=== PATIENT | female | born 2000 | race Caucasian/White ===

== ENCOUNTER 2019-05-20 09:16 | Emergency (ER) | payer MEDICAID, SELFPAY ==
--- NOTE | ~2019-05-20 | US_ITS ---
EXAMINATION: US OB <=14 wk fetus w TV DATE: 05/20/2019 10:49 INDICATION: Nausea, vomiting and diarrhea. Evaluate well-being. TECHNIQUE: Real-time transabdominal and transvaginal obstetric ultrasound. FINDINGS: No prior studies for comparison. The uterus measures 8.1 x 4.6 x 5.3 cm. There is an intrauterine gestational sac, with pole stefanie ntified. The crown rump length measures 0.39 cm, which correlates with a estimated gestational age o f 6 weeks 1 day. heart tones are identified measuring 97 BPM. There is a 2 cm corpus luteal c yst of the left ovary. Small amount of free fluid in the pelvis. IMPRESSION: 1. SL IUP with an EGA of 6 weeks, 1 days (EDC by current ultrasound of 01/12/2020). Reviewed, dictated and finalized at location B. [facility] IMPRESSION: 1. SL IUP with an EGA of 6 weeks, 1 days (EDC by current ultrasound of 01/12/20 20).
[2019-05-20 09:34] VITALS: BP 130/78; PULSE 73; RESP 20; TEMP 36.8; O2SAT 100
[2019-05-20] MEDS: ONDANSETRON INJ 4 MG/2 ML VIAL IV PUSH (09:41)
[2019-05-20] MEDS: SODIUM CHLORIDE 0.9% IV 1,000 ML 999 ML IV CONT (09:41)
--- NOTE | 2019-05-20 09:55 | ED.NAVMDI ---
HPI - Nausea/Vomiting/Diarrhea General Chief complaint: Nausea/Vomiting/Diarrhea Stated complaint: Sent from , N/V Time Seen by Provider: 05/20/19 09:26 Source: patient and RN notes reviewed Mode of arrival: ambulatory Limitations: no limitations History of Present Illness HPI Narrative: Pt is a 19 y/o female who presents to the ED with c/o nausea and vomiting starting 3 days ago. She notes that she hasn't felt well for the past several days. Pt reports having lower ABD cramping accompanying her nausea and vomiting, but denies any ABD pain currently. She also currently denies any diarrhea or vaginal bleeding. Pt states that her LMP was several weeks ago. MD elicited complaint: nausea and vomiting Onset (ago): day(s) (3) Associated abdominal pain: Yes Location of pain: other (lower ABD) Pain consistency: now resolved Quality: cramping Associated symptoms: denies other symptoms Related Data Allergies Allergy/AdvReac Type Severity Reaction Status Date / Time amoxicillin Allergy Hives Verified 05/20/19 09:31 Review of Systems Review of Systems: Narrative: CONSTITUTIONAL: Denies fever, chills, or sweats. GASTROINTESTINAL: Reports nausea, vomiting, and lower abdominal cramping (resolved). Denies diarrhea. GENITOURINARY: Denies dysuria, hematuria, or vaginal bleeding. SKIN: Denies rash or itching. All systems reviewed & are unremarkable except as noted in HPI and below PMFSH Past Medical History Medical History Healthy female Surgical History Surgical History No significant past surgical history Social History Social History Smoking status: Unknown if ever smoked Exam Narrative: Exam Narrative: GENERAL: Well-appearing, well-nourished, and in no acute distress. HEAD: Normocephalic, atraumatic. EYES: PERRLA and EOMI. ENT: Nares clear, no rhinorrhea or epistaxis. Mucous membranes moist. NECK: Supple. CHEST: Clear to auscultation. No respiratory distress. HEART: Regular rate and rhythm. No murmur heard. Normal peripheral pulses. ABDOMEN: Soft, nontender, nondistended, normal active bowel sounds. EXTREMITIES: Normal range of motion. No edema. SKIN: Warm, dry, no rash. NEURO: No focal deficits. Alert and oriented. Course Course Emergency Course: Patient presented for evaluation of nausea and vomiting. Patient denies any pelvic pain, vaginal bleeding, loss of fluids. Patient had a positive test, we did inform her that she was . Patient has an IUP on ultrasound. Pelvic exam not done as she has no pelvic pain, vaginal bleeding or discharge. Patient with stable laboratory findings. She does have a urinary tract infection. We will treat her with antibiotics. She was given [employer] follow-up. She was discharged home in stable condition. Vital Signs Vital signs: Vital Signs Temperature 36.8 C 05/20/19 09:34 Pulse Rate 73 05/20/19 09:34 Respiratory Rate 20 05/20/19 09:34 Blood Pressure 130/78 05/20/19 09:34 Pulse Oximetry 100 05/20/19 09:34 Temperature 36.8 C 05/20/19 09:34 Pulse Rate 73 05/20/19 09:34 Respiratory Rate 20 05/20/19 09:34 Blood Pressure 130/78 05/20/19 09:34 Pulse Oximetry 100 05/20/19 09:34 MDM - Nausea/Vomiting/Diarrhea Lab Data Result diagrams: 05/20/19 10:01 05/20/19 10:01 Labs: Lab Results 05/20/19 05/20/19 05/20/19 Range/Units 10:01 10:01 10:01 WBC 7.3 (4.5-10.0) K/mm3 RBC 4.52 (4.2-5.4) M/mm3 Hgb 14.1 (12.0-15.0) g/dL Hct 40.6 (37.0-47.0) % MCV 89.8 (80-100) fl MCH 31.2 (26-34) pg MCHC 34.7 (32-36) g/dl RDW 11.3 L (11.5-14.5) % Plt Count 296 (150-375) k/mm3 MPV 9.3 (7.4-10.4) fl Immature Gran % (Auto) 0.4 (0-0.5) % Neut % (Auto) 67.1 (45.5-73.1) % Lymph % (Auto) 23.0 (18.3-44.2) % Crisp % (Auto)
[2019-05-20 10:09] LABS: Basophils Percent Auto 0.3 % (0.2-1.2); Eosinophils Absolute Auto 0.1 K/mm3 (0-0.3); Eosinophils Percent Auto 0.8 % (0-4.4); Hematocrit 40.6 % (37.0-47.0); Hemoglobin 14.1 g/dL (12.0-15.0); Immature Granulocyte Absolute 0.03 K/mm3 (0.00-0.031); Immature Granulocyte Percent A 0.4 % (0-0.5); Lymphocytes Absolute Auto 1.67 K/mm3 (0.9-3.2); Mean Corpuscular HGB Conc 34.7 g/dl (32-36); Mean Corpuscular Hemoglobin 31.2 pg (26-34); Mean Corpuscular Volume 89.8 fl (80-100); Mean Platelet Volume 9.3 fl (7.4-10.4); Monocytes Absolute Auto 0.6 K/mm3 (0.1-0.6); Monocytes Percent Auto 8.4 % (2.6-8.5); Neutrophils Absolute Auto 4.9 K/mm3 (1.3-6.7); Neutrophils Percent Auto 67.1 % (45.5-73.1); Platelet Count Result 296 k/mm3 (150-375); Red Blood Count 4.52 M/mm3 (4.2-5.4); Red Cell Distribution Width 11.3 % (11.5-14.5); White Blood Count 7.3 K/mm3 (4.5-10.0)
[2019-05-20 10:23] LABS: Add Urine Microscopic? YES; Appearance Urine Cloudy (Clear); Bacteria Urine 3+ /hpf; Bilirubin Urine Negative (Negative); Blood Urine Negative (Negative); Color Urine Yellow (Yellow); Glucose Urine UA Negative (Negative); Ketones Urine Trace mg/dL (Negative); Leukocyte Esterase Ur 2+ LEU/UL (Negative); Mucus Urine Rare /lpf; Nitrate Urine Negative (Negative); Protein Urine Negative (Negative); Specific Grav Ur 1.024 (1.001-1.035); Squamous Epithelial Cell Urine Many /hpf (Few); Urobilinogen Urine Negative mg/dL (<2.0); WBC Urine 16-20 /hpf
[2019-05-20 10:50] LABS: Alanine Aminotransferase 16 U/L (4-35); Albumin Level 4.5 g/dL (3.5-5.1); Alkaline Phosphatase 44 U/L (38-126); Aspartate Amino Transferase 25 U/L (14-36); Bilirubin,Total 0.6 mg/dL (0.2-1.3); Blood Urea Nitrogen 7 mg/dL (7-17); Calcium 9.4 mg/dL (8.4-10.2); Carbon Dioxide 23 mmol/L (22-30); Chloride 101 mmol/L (98-107); Estimated CRCL calculation 119 ml/min; Estimated Glomerular Filt Rate > 60; Glucose 79 mg/dL (65-105); Lipase 22 U/L (23-300); Potassium 3.8 mmol/L (3.4-5.0); Sodium 135 mmol/L (137-145)
[2019-05-20] MEDS: CEPHALEXIN 500 MG CAPSULE PO (11:35)
[2019-05-20 11:45] VITALS: BP 115/74; PULSE 86; RESP 18; O2SAT 100
== END 2019-05-20 11:47 | disposition home or self-care (01) ==
PROVIDERS: Emergency Provider Emergency Medicine
DX: O23.11 Infections of bladder in pregnancy, first trimester (principal); O21.9 Vomiting of pregnancy, unspecified; O99.281 Endocrine, nutritional and metabolic diseases complicating pregnancy, first trimester; E86.0 Dehydration; Z3A.01 Less than 8 weeks gestation of pregnancy
CPT/HCPCS: 36415; 76801; 76817; 80053; 81001; 81025; 83690; 84702; 85025; 87086; 87088; 87804; 96361; 96374; 99284; A9270; J2405; J7030

== ENCOUNTER 2019-06-17 12:34 | Outpatient (CLI) | payer MEDICAID, SELFPAY ==
[2019-06-17 13:12] LABS: Basophils Percent Auto 0.2 % (0.2-1.2); Eosinophils Absolute Auto 0.1 K/mm3 (0-0.3); Eosinophils Percent Auto 0.8 % (0-4.4); Hematocrit 39.3 % (37.0-47.0); Hemoglobin 13.6 g/dL (12.0-15.0); Immature Granulocyte Absolute 0.03 K/mm3 (0.00-0.031); Immature Granulocyte Percent A 0.2 % (0-0.5); Lymphocytes Absolute Auto 1.91 K/mm3 (0.9-3.2); Lymphocytes Percent Auto 14.9 % (18.3-44.2); Mean Corpuscular HGB Conc 34.6 g/dl (32-36); Mean Corpuscular Hemoglobin 30.9 pg (26-34); Mean Corpuscular Volume 89.3 fl (80-100); Mean Platelet Volume 9.3 fl (7.4-10.4); Monocytes Absolute Auto 0.7 K/mm3 (0.1-0.6); Monocytes Percent Auto 5.5 % (2.6-8.5); Neutrophils Absolute Auto 10.1 K/mm3 (1.3-6.7); Neutrophils Percent Auto 78.4 % (45.5-73.1); Platelet Count Result 329 k/mm3 (150-375); Red Cell Distribution Width 11.4 % (11.5-14.5); White Blood Count 12.9 K/mm3 (4.5-10.0)
[2019-06-17 13:21] LABS: Add Urine Microscopic? YES; Appearance Urine Clear (Clear); Bacteria Urine Trace /hpf; Bilirubin Urine Negative (Negative); Blood Urine Negative (Negative); Color Urine Yellow (Yellow); Glucose Urine UA Negative (Negative); Ketones Urine Negative (Negative); Leukocyte Esterase Ur 1+ LEU/UL (NEGATIVE); Mucus Urine Rare /lpf; Nitrate Urine Negative (Negative); Protein Urine 1+ mg/dL (Negative); RBC Urine 0-2 /hpf (0-2); Squamous Epithelial Cell Urine Few /hpf (Few); Urobilinogen Urine Negative mg/dL (<2.0)
[2019-06-17 13:24] LABS: Hemoglobin A1C 4.8 % (<5.7)
[2019-06-17 13:53] LABS: Vitamin D 25 Hydroxy 24.7 ng/mL
[2019-06-17 13:57] LABS: Hepatitis B Surface Antigen Negative (Negative); Rubella IgG Antibody 75.4 IU/ML
[2019-06-17 14:12] LABS: HIV 1/2 Ab P24 Ag Result Negative (Negative); Hepatitis C Virus Antibody Negative (Negative)
[2019-06-18 07:54] LABS: Rapid Plasma Reagin Non-Reactive (NonReactive)
[2019-06-19 10:29] LABS: Varicella IgG Antibody <135.00 Index (>=165.00)
[2019-06-19 22:50] LABS: Hematocrit 39.2 % (35.0-45.0); Hemoglobin 12.8 g/dL (11.7-15.5); MCH 30.6 pg (27.0-33.0); MCV 93.3 FL (80.0-100.0); RDW 12.6 % (11.0-15.0)
== END 2019-06-17 12:35 | disposition home or self-care (01) ==
PROVIDERS: Visit Provider Obstetrics & Gynecology
DX: Z34.90 Encounter for supervision of normal pregnancy, unspecified, unspecified trimester (principal)
CPT/HCPCS: 36415; 81001; 81220; 81243; 82306; 83021; 83036; 84443; 85025; 86592; 86703; 86762; 86787; 86803; 86900; 86901; 87086; 87088; 87340; 87491; 87591; G0432

== ENCOUNTER 2019-12-31 03:15 | Inpatient (IN) | payer OTHER, SELFPAY ==
[2019-12-31] VITALS (103 sets, daily range): BP systolic 109–146; BP diastolic 63–117; PULSE 70–134; RESP 16–18; TEMP 36.3–36.6; O2SAT 97–100
--- NOTE | 2019-12-31 04:32 | LDADM ---
This patient, Kali Alfaro, was admitted to Labor/Delivery/Recovery 103 on 12/31/19 at 03:15. Plans for labor, pain management and were discussed with patient. Patient/family oriented to hospital policies and general routines including ID bracelet, bed and alarms, visiting hours, pain management, procedures, bathroom and other care routines, personal items, smoking policy, room service/diet and guest tray routines, security routines, and visiting hours. Patient/Family are encouraged to report perceived risks to care and to ask questions if they do not understand what they are told or what they should do. See OBIX for further documentation.
[2019-12-31 04:43] LABS: Basophils Percent Auto 0.2 % (0.2-1.2); Eosinophils Absolute Auto 0.1 K/mm3 (0-0.3); Eosinophils Percent Auto 0.9 % (0-4.4); Hematocrit 34.9 % (37.0-47.0); Hemoglobin 12.2 g/dL (12.0-15.0); Immature Granulocyte Absolute 0.05 K/mm3 (0.00-0.031); Immature Granulocyte Percent A 0.5 % (0-0.5); Lymphocytes Absolute Auto 1.71 K/mm3 (0.9-3.2); Lymphocytes Percent Auto 15.4 % (18.3-44.2); Mean Corpuscular Hemoglobin 30.7 pg (26-34); Mean Corpuscular Volume 87.7 fl (80-100); Mean Platelet Volume 9.6 fl (7.4-10.4); Monocytes Absolute Auto 0.6 K/mm3 (0.1-0.6); Monocytes Percent Auto 5.5 % (2.6-8.5); Neutrophils Absolute Auto 8.6 K/mm3 (1.3-6.7); Neutrophils Percent Auto 77.5 % (45.5-73.1); Platelet Count Result 247 k/mm3 (150-375); Red Blood Count 3.98 M/mm3 (4.2-5.4); Red Cell Distribution Width 12.6 % (11.5-14.5); White Blood Count 11.1 K/mm3 (4.5-10.0)
[2019-12-31 05:37] LABS: HIV 1/2 Ab P24 Ag Result Negative (Negative)
[2019-12-31] MEDS: LACTATED RINGERS 1,000 ML 125 ML IV CONT ×2 (05:47→07:12)
[2019-12-31] MEDS: CLINDAMYCIN 900 MG/NS 50 ML 900 MG/50 ML PIGGYBACK 50 MG IVPB (05:47)
[2019-12-31] MEDS: OXYTOCIN 30 UNITS/NS 500 ML 30 UNITS/500 ML BAG 6 UNITS IV CONT (05:47)
--- NOTE | 2019-12-31 07:18 | WPDANESEPP ---
Anes - Eval Pre Procedure Procedure: labor epidural Date/Time: 12/31/19 07:18 Surgeon: lacho Preop Diagnosis: pain during labor Pre Op Diagnosis: bleeding, Leaking Patient Data Age: 19 Gender: F Height: 5 ft 6 in Weight: Last Vital Signs Temp 36.6 C 12/31/19 05:14 Pulse 84 12/31/19 07:16 BP 127/74 12/31/19 07:16 Pulse Ox 100 12/31/19 07:14 Allergies Allergy/AdvReac Type Severity Reaction Status Date / Time amoxicillin Allergy Mild Hives Verified 12/31/19 06:06 Home Medications Medication Instructions Recorded Confirmed Type vits 75-iron 28 mg-folic pkg PO 06/17/19 History acid 800 mcg-omega-3 oral combo pack Laboratory Tests 12/31/19 12/31/19 12/31/19 04:36 04:36 04:36 WBC 11.1 K/mm3 H K/mm3 (4.5-10.0) RBC 3.98 M/mm3 L M/mm3 (4.2-5.4) Hgb 12.2 g/dL g/dL (12.0-15.0) Hct 34.9 % L % (37.0-47.0) MCV 87.7 fl fl (80-100) MCH 30.7 pg pg (26-34) MCHC 35.0 g/dl g/dl (32-36) RDW 12.6 % % (11.5-14.5) Plt Count 247 k/mm3 k/mm3 (150-375) MPV 9.6 fl fl (7.4-10.4) Immature Gran % (Auto) 0.5 % % (0-0.5) Neut % (Auto) 77.5 % H % (45.5-73.1) Lymph % (Auto) 15.4 % L % (18.3-44.2) [place] % (Auto) 5.5 % % (2.6-8.5) Eos % (Auto) 0.9 % % (0-4.4) Baso % (Auto) 0.2 % % (0.2-1.2) Lymph # (Auto) 1.71 K/mm3 K/mm3 (0.9-3.2) [place] # (Auto) 0.6 K/mm3 K/mm3 (0.1-0.6) Eos # (Auto) 0.1 K/mm3 K/mm3 (0-0.3) Baso # (Auto) 0.0 K/mm3 K/mm3 (0.0-0.1) Abs Immat Gran (auto) 0.05 K/mm3 H K/mm3 (0.00-0.031) Absolute Neuts (auto) 8.6 K/mm3 H K/mm3 (1.3-6.7) Absolute Nucleated RBC 0.0 K/mm3 K/mm3 (0.0-0.012) Nucleated RBC % 0.0 % % (0.0-0.2) RPR Pending HIV 1&2 Ab/P24 Ag 4thGn Negative (Negative) Blood Type Antibody Screen 12/31/19 04:36 WBC RBC Hgb Hct MCV MCH MCHC RDW Plt Count MPV Immature Gran % (Auto) Neut % (Auto) Lymph % (Auto) [place] % (Auto) Eos % (Auto) Baso % (Auto) Lymph # (Auto) [place] # (Auto) Eos # (Auto) Baso # (Auto) Abs Immat Gran (auto) Absolute Neuts (auto) Absolute Nucleated RBC Nucleated RBC % RPR HIV 1&2 Ab/P24 Ag 4thGn Blood Type O Positive Antibody Screen Negative : gestational age (GAUDENCIO 01/11) Patient hx anesthesia problems: none Family hx anesthesia problems: none [facility] Past Medical History Medical History (Updated 12/31/19 @ 07:19 by Tio Martell CRNA) Encounter for supervision of low-risk first in second trimester Encounter for supervision of normal first Healthy female Surgical History Surgical History No significant past surgical history Social History Social History Smoking status: Former smoker Tobacco type: cigarettes Second hand tobacco smoke exposure: No Smoking end date: 01/10/19 Alcohol intake: never Substance use: current Substance use type: marijuana Last use: 1 week ago Gender identity (if verbalized by the patient): Female Sexual Orientation (if Verbalized by the Patient): Straight or Heterosexual Spiritual care concerns: No Exam Day of Procedure 12/31/19 07:18 Patient weight: normal Heart: regular rate and rhythm Lungs: clear to auscultation and normal air movement Neurological: alert and oriented
--- NOTE | 2019-12-31 07:32 | WPDOBADMIT ---
Obstetrics - Admit Note Admission Note: record reviewed. No pertinent additions to the history and/or any subsequent changes in the physical findings that are not consistent with the expected course of the were found.SROM, GBS +, SVE /-1 forebag ruptured clear odorless fluid Additions to the history and/or subsequent changes in the physical findings follow. None.
[2019-12-31 08:45] LABS: Amphetamine Screen Urine Negative (Negative); Barbiturate Screen Urine Negative (Negative); Benzodiazepines Screen Urine Negative (Negative); Cannabinoid Screen Urine Negative (Negative); Cocaine Screen Urine Negative (Negative); Methadone Screen Urine Negative (Negative); Opiate Screen Urine Negative (Negative); Phencyclidine Screen Urine Negative (Negative)
--- NOTE | 2019-12-31 11:12 | P.PCNOB_ITS ---
OB - Delivery Note Procedure Delivery date: 12/31/19 events: No Care Intrapartal events: None Induction method: none Delivery augmentation: rupture of membranes and pitocin Delivery monitor: external FHT and internal uterine Route of delivery: Laceration description: Perineal - 2nd Degree Delivery repair: vicryl Specimen: No Estimated blood loss (mL): 335 Disposition: other () [place] Baby Date of : 12/31/19 Time of : 10:59 Weeks of gestation at delivery: 38 gender: Female Weight (pounds): 7 Weight (ounces): 5 presentation: vertex position: Left Occiput Anterior Placenta delivery description: Spontaneous cord vessel description: 3 Vessels and Clamped/Cut score one minute: 8 score five minutes: 9
[2019-12-31] MEDS: OXYTOCIN 30 UNITS/NS 500 ML 30 UNITS/500 ML BAG 125 UNITS IV CONT (11:18)
[2019-12-31] MEDS: BENZOCAINE 20% AER SPR (*SP) 56 GM CAN 1 SPRAY TOPICAL (12:28)
[2019-12-31] MEDS: IBUPROFEN 600 MG TABLET PO ×2 (12:28→19:35)
[2019-12-31] MEDS: WITCH HAZEL 40 PADS 1 PAD TOPICAL (12:28)
[2019-12-31 13:21] LABS: Rapid Plasma Reagin Non-Reactive (NonReactive)
--- NOTE | 2019-12-31 13:31 | PC.NURSE ---
Patient transferred to post room #281 per wheelchair. Support person present. Oriented to unit, room, information board, rooming in, admission packet and security measures. Patient verbalizes understanding.
[2019-12-31] MEDS: DOCUSATE SODIUM 100 MG CAPSULE PO (16:39)
[2019-12-31] MEDS: LANOLIN (LANSINOH) 7.5 GM CREAM 1 APPLIC TOPICAL (16:40)
--- NOTE | 2019-12-31 18:13 | PC.NURSE ---
Nipple shield provided to mother due to soft and inverted nipple. Instructions given on application and cleaning of shield. Discussed nipple shield precautions and possible complications. Patient able to return demonstration on proper application of shield. Discussed the need to initiate pumping if infant continues to nurse with the shield. Patient verbalizes understanding.
[2020-01-01] MEDS: IBUPROFEN 600 MG TABLET PO ×2 (05:06→20:10)
[2020-01-01 06:02] LABS: Hematocrit 32.2 % (37.0-47.0); Hemoglobin 11.1 g/dL (12.0-15.0)
--- NOTE | 2020-01-01 07:20 | WPDANLDPN2 ---
Anes-Prog Note L&D Date/Time: 01/01/20 07:20 Comfortable throughout: labor and delivery Neuraxial method: epidural Epidural/Spinal procedure site: clean & non-tender Neuro status: Neuro function grossly intact. Cardiovascular status: normal Respiratory status: normal Airway patency: baseline Mental status: baseline Post-Op hydration status: normal Vital Signs: Last Vital Signs Temp 36.6 C 12/31/19 18:50 Pulse 89 12/31/19 18:50 Resp 16 12/31/19 18:50 BP 125/87 12/31/19 18:50 Pulse Ox 100 12/31/19 10:57 Pain score (VAS): 0 I/O: Intake & Output 12/31/19 12/31/19 01/01/20 15:59 23:59 07:59 Intake Total 500 Balance 500 Post-procedural complaints: none Patient feedback: Patient satisfied with anesthetic care.
--- NOTE | 2020-01-01 07:30 | PC.NURSE ---
Consulted with patient, mother reports she had issues with latching and was using the nipple shield. The last feeding she was able to latch without shield. Discussed use that can be a good tool if needed. Instructions given on application and cleaning of shield. Discussed nipple shield precautions and possible complications. Discussed the need to initiate pumping if infant continues to nurse with the shield. Patient verbalizes understanding. Reviewed infant feeding cues, frequencies, duration of feedings, feeding elimination flow sheet, and signs of adequate intake. Demonstrated stimulation techniques to wake infant for feeding. Assisted with to breast. Reviewed positioning/alignment in cross cradle, holding breast in U hold and guided asymmetrical latch on. Infant was able to latch correctly with first attempt. Infant nursed eagerly, with steady draws and frequent swallowing noted. Reviewed signs of a correct latch, effective nursing and suck swallow ratio. was able to maintain latch without discomfort to mother. Nipple care reviewed. Suggested mother stimulate while feeding to keep infant awake and nursing effectively for increased intake and to assist with maintaining deep latch. Instructed mother to call out for RN assistance if she is unable to latch infant for feeding or she has discomfort with nursing. Instructed feeding should be initiated three hours from start of last feeding or if feeding cues are noted before. Mother voiced understanding of information shared.
[2020-01-01 07:40] VITALS: BP 120/77; PULSE 74; RESP 18; TEMP 36.4; O2SAT 99
--- NOTE | 2020-01-01 08:02 | PM.OBPNVD ---
OB - PN: Subj Subjective Date/time seen: 01/01/20 08:02 Patient comments: no complaints baby status: doing well OB - PN: Obj Data Labs CBC & Chem 7: 01/01/20 05:03 Labs: Laboratory Results - last 24 hr 12/31/19 12/31/19 01/01/20 04:36 08:19 05:03 Hgb 11.1 L Hct 32.2 L Urine Opiates Screen Negative Urine Methadone Screen Negative Ur Barbiturates Screen Negative Ur Phencyclidine Scrn Negative Ur Amphetamine Screen Negative U Benzodiazepines Scrn Negative Urine Cocaine Screen Negative U Cannabinoids Screen Negative RPR Non-reactive OB - PN A/P Plan day: 1 Plan: routine care Time Spent With Patient Time: Total time spent is greater than 50% in coordination of care (as documented) at patient's floor/unit and/or counseling patient: Time with patient: less than 15 minutes Review of Systems Review of Systems: All systems reviewed & are unremarkable except as noted in HPI and below Exam Narrative: Exam Narrative: Fundus firm and vaginal flow controlled. No lower ext redness, warmth, or edema. Negative homans. Const: General: comfortable Chest: Breast/axilla inspection: normal inspection of the breasts Resp: Effort & Inspection: normal respiratory effort Cardio: Rate: regular rate GI: GI Palp: Yes Soft to palpation Psych: Appearance: grossly normal Affect: normal affect Attitude: cooperative Thought content: Yes Normal thought content present Judgement: Good judgement present (Psych)
[2020-01-01] MEDS: MULTIVIT/MIN/PREN/FOL AC/IRON TABLET 1 TAB PO (08:38)
[2020-01-01] MEDS: TETANUS,DIPHTHERIA,AC PERTUSSIS ADULT (0.5 ML) BOOSTRIX IM (08:39)
[2020-01-01] MEDS: ACETAMINOPHEN 325 MG TABLET 650 MG PO (09:32)
[2020-01-01] MEDS: WITCH HAZEL 40 PADS 1 PAD TOPICAL (09:34)
--- NOTE | 2020-01-01 13:08 | PCCCNOTE ---
Care Coordination Consult: Met with pt. today to discuss services. Pt. lives at home with her aunt. FOB is Angie who is in the room and supportive. This is pt. and FOB first child. Pt. has supportive family. Reports she has all necessary supplies at home including a car seat, crib, clothing, diapers, and bottles. Pt. hopes to breastfeed at discharge, interested in a breast pump. Nursing was notified. Resources provided to pt. Pt. plans to utilize [facility] services at discharge. Pt. used marijuana prior to knowledge of , is aware she tested negative for all substances at . Denies any substance abuse use currently. Pt. denies any further needs.
[2020-01-01 21:00] VITALS: BP 122/85; PULSE 87; RESP 16; TEMP 36.8; O2SAT 99
[2020-01-02 07:40] VITALS: BP 137/82; PULSE 92; RESP 18; TEMP 36.6; O2SAT 99
--- NOTE | 2020-01-02 07:47 | PM.OBPNVD ---
OB - PN: Subj Subjective Date/time seen: 01/02/20 07:47 Patient comments: no complaints baby status: doing well OB - PN: Obj Data Labs CBC & Chem 7: 01/01/20 05:03 OB - PN A/P Plan day: 2 Plan: routine care and discharge home (F/U in 4 weeks) Time Spent With Patient Time: Total time spent is greater than 50% in coordination of care (as documented) at patient's floor/unit and/or counseling patient: Will check epds today prior to discharge. Discussed s/s of post depression discussed in detail. Time with patient: less than 15 minutes Review of Systems Review of Systems: All systems reviewed & are unremarkable except as noted in HPI and below Exam Narrative: Exam Narrative: Fundus firm and vaginal flow controlled. No lower ext redness, warmth, or edema. Negative homans. Const: General: comfortable Chest: Breast/axilla inspection: normal inspection of the breasts Resp: Effort & Inspection: normal respiratory effort Cardio: Rate: regular rate GI: GI Palp: Yes Soft to palpation Psych: Appearance: grossly normal Affect: normal affect Attitude: cooperative Thought content: Yes Normal thought content present Judgement: Good judgement present (Psych)
[2020-01-02] MEDS: IBUPROFEN 600 MG TABLET PO (08:17)
[2020-01-02] MEDS: MULTIVIT/MIN/PREN/FOL AC/IRON TABLET 1 TAB PO (08:17)
[2020-01-02] MEDS: LANOLIN (LANSINOH) 7.5 GM CREAM 1 APPLIC TOPICAL (08:18)
--- NOTE | 2020-01-02 11:50 | PC.NURSE ---
Mother reports she is having tenderness with feeding. Both nipples are slightly bruised. Reviewed nipple care. Assisted with to breast, reviewing football positioning/alignment, holding breast in C hold and guided latch on. Infant was able to latch deeply, infant tends to pull back to shallow latch. Demonstrated how to adjust latch more deeply while feeding. Once done mother reports she can feel infant has a deeper latch with no discomfort. Advised to stimulate to keep awake and nursing effectively for increased intake and assist with maintaining deep latch. Mother is able to independently latch with appropriate positioning/alignment. She is feeding as required and waking infant to feed if needed. Infant has had at least 8 effective feedings in the past 24 hours, and is currently meeting outcomes for weight, output, jaundice and feeding frequencies. Mother states she feels confident to continue effective at home. Reviewed transition to breast milk, signs of adequate intake, and engorgement/relief. Instructed to call ICP if intake/output less than required. Reviewed regular medications mother is taking. Information provided per Virginie. Reviewed community resources on the [facility] website and in the Mom/Baby guide. Information on outpatient services provided. Mother has no further questions at this time.
[2020-01-03 10:54] VITALS: BP 120/73; PULSE 91; RESP 20; TEMP 37.1; O2SAT 100
--- NOTE | 2020-01-07 07:50 | PM.OBDSVD ---
DS: Admitting Diagnosis Admitting Diagnosis Admitting Diagnosis: bleeding, Leaking OB - DS: Summary OB Procedures : None OB Procedures Intrapartum: Spontaneous Vag Delivery OB Procedures: : None Time Spent with Patient Time attestation: Total time spent providing and/or coordinating discharge services: Discharge Plan Discharge Attending physician on discharge: Anali Jesus Consulting providers: Jess Pearson ; Anali Jesus ; Melia Buck Discharging Clinician: Melia Buck Patient Disposition: Home, Self-Care Activity: pelvic rest Diet: as tolerated Discharge Instructions: Education: Mom and Baby Guide Given to: Mother Follow-Up: Call your delivering provider's office for an appointment to be seen. Mom and baby should come to the [facility] for the follow-up appointment. Appointment Date/Time: January 03, 2020 at 10:00 am What to expect at your follow-up visit: Physical Assessment Call [phone] if you are unable to keep your appointment time. BREAST CARE: * Wear a snug supportive bra. * For engorgement discomfort: Breast Feeding: * Apply warm moist washcloths * Express milk as needed to relieve engorgement * Wear loose clothing * For sore nipples: * Identify correct latch-on * Apply warm moist washcloths before and after nursing * Air dry nipples after nursing * May apply Lansinoh cream to nipples PERINEAL CARE: * Until bleeding stops, use your marlena bottle after urinating * Change your pad frequently throughout the day * You may take sitz baths several times a day (fill your bathtub with warm water and soak for 20 minutes.) Do NOT bathe in the water * No tub baths until seen by your physician - You may shower ACTIVITY: * Rest as much as possible. * Do not exercise or lift anything heavier than your baby (such as laundry or other children.) * Avoid stairs or driving as much as possible. * Do not put anything into the vagina. No douching, tampons, or sexual activity until seen by physician. NOTIFY PHYSICIAN IF YOU HAVE ANY QUESTIONS OR IF ANY OF THE FOLLOWING SYMPTOMS OCCUR: * If your stitches become red, swollen, or more painful than what you have experienced in the hospital. * If your vaginal bleeding becomes foul smelling. * If your vaginal bleeding becomes more heavy than a period or if your bleeding changes from pink to bright red. However, you may pass an occasional walnut-sized clot once or twice for the first week . * If you experience a sharp, shooting pain in you calves. * If you discover a hard, reddened area on your breast or if you experience flu-like symptoms. DIET: * Eat regular, well-balanced meals. * Drink plenty of fluids daily. If , drink to thirst. Patient Instructions: Antibiotic Form Stand Alone Forms: General Discharge Information Follow-up/Referrals: Anali Jesus CNM [Certified Nurse Russian Teacher] - Discharge Medications: Continued One A Day Women's DHA 28 mg iron- 800 mcg combo pack PO RF: 0 Date of admission: 12/31/19 03:15 Primary Care Provider: PHYSICIAN,[facility] Admitting Provider: Mima Pratt Attending physician on admission: Mima Pratt Condition: Stable
== END 2020-01-02 12:22 | disposition home or self-care (01) | DRG 560 ==
LOC: ANHLDR 04:06 → ANHOB2 13:50
PROVIDERS: Advanced Practice Midwife; Admitting Provider Obstetrics & Gynecology; Visit Provider Obstetrics & Gynecology
DX: O99.824 Streptococcus B carrier state complicating childbirth (principal); Z37.0 Single live birth; Z3A.38 38 weeks gestation of pregnancy; O70.1 Second degree perineal laceration during delivery
CPT/HCPCS: 36415; 80307; 85014; 85018; 85025; 86592; 86703; 86850; 86900; 86901; 90715; A9270; G0432; J2590; J2795; J7120

== ENCOUNTER 2020-07-06 20:02 | Emergency (ER) | payer OTHER, SELFPAY ==
--- NOTE | ~2020-07-06 | CT_ITS ---
EXAMINATION: CT cervical spine wo con DATE: 07/06/2020 20:50 INDICATION: Trauma. Neck pain. TECHNIQUE: Computed tomography (CT) of the cervical spine was performed without intravenous contrast. The dose-length product was 374 mGy-cm. Automated exposure control and iterative reconstruction tech nique were employed. COMPARISON: None FINDINGS: No acute fracture, subluxation or dislocation. Reversal of cervical lordosis, likely due to muscle spasm or patient positioning. Lung apices are unremarkable. No evidence for perched facet. Ve rtebral body heights are maintained. No paraspinal soft tissue abnormality. Craniovertebral junction within normal limits. IMPRESSION: 1. No acute abnormality of the cervical spine. Reviewed, dictated and finalized at location A.
--- NOTE | ~2020-07-06 | CT_ITS ---
EXAMINATION: CT BRAIN W/O DATE: 07/06/2020 20:50 INDICATION: Trauma to the head. TECHNIQUE: Computed tomography (CT) of the head was performed without intravenous contrast. The dose- length product was 529.67 mGy-cm. Automated exposure control and iterative reconstruction technique w ere employed. COMPARISON: No prior studies for comparison. FINDINGS: Normal brain parenchymal volume for age. Normal quintero-white differentiation. No acute intrac ranial hemorrhage, infarction, mass or mass effect. No ventriculomegaly or midline shift. Midline sagittal images demonstrate a normal corpus callosum, c raniovertebral junction and sella turcica. Basilar cisterns are patent. Paranasal sinuses and mastoids are pneumatized. No depressed skull fractures. IMPRESSION: 1. No acute intracranial abnormality. Reviewed, dictated and finalized at location A.
[2020-07-06 20:10] VITALS: BP 125/80; PULSE 83; RESP 18; TEMP 37; O2SAT 99
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
[2020-07-06] MEDS: KETOROLAC 10 MG TABLET PO (21:08)
[2020-07-06 21:10] VITALS: BP 122/80; PULSE 70; RESP 18; TEMP 36.6; O2SAT 98
== END 2020-07-06 21:11 | disposition home or self-care (01) ==
PROVIDERS: Emergency Provider Emergency Medicine; PCP Physician Assistant
DX: S09.90XA Unspecified injury of head, initial encounter (principal); W22.8XXA Striking against or struck by other objects, initial encounter
CPT/HCPCS: 70450; 72125; 99282; 99284; A9270

== ENCOUNTER 2020-09-22 20:25 | Emergency (ER) | payer OTHER, SELFPAY ==
--- NOTE | ~2020-09-22 | CT_ITS ---
EXAMINATION: CT BRAIN W/O DATE: 09/22/2020 21:22 INDICATION: Headache. Vision loss. TECHNIQUE: Computed tomography (CT) of the head was performed without intravenous contrast. The dose- length product was 605.33 mGy-cm. Automated exposure control and iterative reconstruction technique w ere employed. COMPARISON: CT dated 07/06/2020 FINDINGS: Normal brain parenchymal volume for age. Normal quintero-white differentiation. No acute intrac ranial hemorrhage, infarction, mass or mass effect. No ventriculomegaly or midline shift. Midline sagittal images demonstrate a normal corpus callosum, c raniovertebral junction and sella turcica. Basilar cisterns are patent. Paranasal sinuses and mastoids are pneumatized. No depressed skull fractures. IMPRESSION: 1. No acute intracranial abnormality. Reviewed, dictated and finalized at location A.
[2020-09-22 20:53] VITALS: BP 129/90; PULSE 72; RESP 20; TEMP 36.9; O2SAT 97
[2020-09-22] MEDS: PROCHLORPERAZINE MALEATE 5 MG TABLET 10 MG PO (21:26)
[2020-09-22] MEDS: DIVALPROEX SODIUM ER 250 MG TAB.24H PO (21:26)
[2020-09-22] MEDS: KETOROLAC (*BKC) 60 MG/2 ML VIAL IM (21:26)
[2020-09-22 21:37] LABS: Basophils Absolute Auto 0.04 K/mm3 (0.00-0.10); Basophils Percent Auto 0.5 % (0.0-1.0); Eosinophils Absolute Auto 0.12 K/mm3 (0.02-0.50); Eosinophils Percent Auto 1.5 % (1.0-6.0); Hematocrit 40.2 % (35.0-49.0); Hemoglobin 14.1 g/dL (12.0-15.0); Immature Granulocyte Absolute 0.03 K/mm3 (0.00-0.00); Immature Granulocyte Percent A 0.4 % (0.0-0.0); Lymphocytes Absolute Auto 2.66 K/mm3 (1.10-4.50); Lymphocytes Percent Auto 32.8 % (18.0-42.0); Mean Corpuscular HGB Conc 35.1 g/dL (32.0-36.0); Mean Corpuscular Hemoglobin 31.5 pg (27.0-31.0); Mean Corpuscular Volume 89.7 fL (78.0-102.0); Mean Platelet Volume 8.6 fl (9.2-11.8); Monocytes Percent Auto 6.2 % (2.0-11.0); Neutrophils Absolute Auto 4.8 K/mm3 (1.7-7.2); Neutrophils Percent Auto 58.6 % (50.0-70.0); Platelet Count Result 289 K/mm3 (150-420); Red Blood Count 4.48 M/mm3 (4.20-5.40); Red Cell Distribution Width 11.7 % (11.6-14.4); White Blood Count 8.1 K/mm3 (4.8-10.8)
[2020-09-22] MEDS: ASPIRIN 81 MG CHEWABLE TABLET 324 MG PO (21:44)
[2020-09-22 21:52] LABS: Alanine Aminotransferase 22 U/L (14-59); Alkaline Phosphatase 64 U/L (46-116); Anion Gap 13 mmol/L (8-16); Aspartate Amino Transferase 19 U/L (15-37); Bilirubin,Total 0.4 mg/dL (0.00-1.00); Blood Urea Nitrogen 9 mg/dL (7-18); Carbon Dioxide 27 mmol/L (21-32); Chloride 103 mmol/L (98-108); Estimated CRCL calculation 86 ml/min; Estimated Glomerular Filt Rate > 60; Glucose 87 mg/dL (70-99); Osmolality Calculated 293 mOsm/kg (285-295); Potassium 3.6 mmol/L (3.5-5.1); Sodium 143 mmol/L (136-145); Total Protein 7.1 g/dL (6.4-8.2)
--- NOTE | 2020-09-22 22:25 | ED.HA ---
HPI - Headache General Chief Complaint: Headache Stated Complaint: R eye trouble, headache on L side,R hand numbness Source: patient Mode of arrival: ambulatory Limitations: no limitations History of Present Illness HPI Narrative: Patient comes in with headache pounding, behind left eye, and associated photo and phonophobia. She had right hand and arm numbness for 45min, that became a tingly sensation, and now continues. She had lip numbness for about 45 minutes which resolved as ah was coming in. She also had double vision that lasted for about 45 minutes and resolved, and loss of peripheral vision on the right for the same period of time that resolved. Pain was 6/10 initially. pounding, sharp, behind left eye, made worse with activity, lessons with rest. She has had previous migraine headaches, but not like this. She had an episode of emesis, just prior to presentation, but feels better now. MD elicited complaint: migraine Pertinent past history: migraines Onset (ago): hour(s) Onset description: suddenly Location: left Severity: moderate Quality & Timing: throbbing, pulsatile, sharp, similar to previous headaches and other (now with new symptoms as above) Exacerbating factors: exertion Relieving factors: rest Context: occurred at rest Associated symptoms: nausea and vomiting Related Data Home Medications Medication Instructions Recorded Confirmed No Home Medications 09/22/20 09/22/20 Allergies Allergy/AdvReac Type Severity Reaction Status Date / Time amoxicillin Allergy Mild Hives Verified 09/22/20 22:31 Review of Systems Review of Systems: ROS unobtainable: Yes unobtainable due to endotracheal tube Constitutional: Constitutional: Reports no additional constitutional complaints Eyes: Eyes: Reports no additional eye complaints ENT: Reports system reviewed and no additional complaints, except as documented Cardiovascular: Cardiovascular: Reports no additional cardiovascular complaints Respiratory: Respiratory: Reports no additional respiratory complaints Gastrointestinal: Gastrointestinal: Reports no additional gastrointestinal complaints Genitourinary: Genitourinary: Reports no additional female genitourinary complaints Musculoskeletal: Musculoskeletal: Reports no additional musculoskeletal complaints Integumentary/Breasts: Skin/Breast: Reports system reviewed and no additional complaints, except as docu Neurologic: Reports system reviewed and no additional complaints, except as documented Psychiatric: Psychiatric: Reports no additional psychiatric complaints Endocrine: Endocrine: Reports no additional endocrine complaints Hematologic/Lymphatic: Hematologic/Lymphatic: Reports no additional hematologic/lymphatic complaints Allergic/Immunologic: Allergic/Immunologic: Reports no additional allergic/immunologic complaints PMFSH Past Medical History Medical History (Updated 09/23/20 @ 00:46 by Kt Meneses MD) Migraine No significant medical problems Surgical History Surgical History No significant past surgical history Family History Family History Mother Adopted Social History Social History (Updated 09/22/20 @ 23:40 by Kt Meneses MD) Smoking status: Former smoker Tobacco type: e-cigarettes/vaping Second hand tobacco smoke exposure: No Smoking end date: 01/10/19 Additional smoking assessment comments: former smoker, now vapes Alcohol intake: never Substance use: current Substance use type: marijuana Last use: 1 week ago Living arrangements: with friend(s) Gender identity (if verbalized by the patient): Female Spiritual care concerns: No Exam Const: General: no acute distress and alert Orientation/consciousness: patient oriented x3 HENMT: Head: normal to inspection Ears: external ears normal General nose exam: Normal external nose prese
[2020-09-22 22:43] LABS: Erythrocyte Sedimentation Rate 8 mm/hr (0-15)
--- NOTE | 2020-09-22 22:55 | PC.NURSE ---
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 dr harding talking with billings at this time. pt continues with tingling to right hand, ROM WNL.
[2020-09-22 23:00] VITALS: BP 121/88; PULSE 72; RESP 20; TEMP 36.9; O2SAT 99
--- NOTE | 2020-09-22 23:01 | PC.NURSE ---
awaiting call back from [facility].
[2020-09-23 00:44] VITALS: BP 117/88; PULSE 71; RESP 20; TEMP 36.9; O2SAT 98
--- NOTE | 2020-09-23 01:04 | PC.NURSE ---
[facility] HERE, REPORT TO THOMAS AND ANOTHER MORTGAGE ACCOUNTING CLERK. PT ALERT , AWAKE. PT AMBULATED TO EMS COT. NO DIFFICULTY OR COMPLAINTS VOICED.
== END 2020-09-23 01:05 | disposition short-term general hospital (02) ==
PROVIDERS: Emergency Provider Emergency Medicine; PCP Physician Assistant
DX: G43.109 Migraine with aura, not intractable, without status migrainosus (principal)
CPT/HCPCS: 36415; 70450; 80053; 85025; 85652; 96372; 99284; 99285; A9270; J1885

== ENCOUNTER 2021-06-18 10:09 | Outpatient (CLI) | payer OTHER, SELFPAY ==
--- NOTE | ~2021-06-18 | US_ITS ---
EXAMINATION: US pelvic complete DATE: 06/18/2021 10:39 INDICATION: Pelvic and perineal pain. TECHNIQUE: Multiple transabdominal sonographic images of the pelvis were obtained. COMPARISON: None FINDINGS: The uterus measures 6.4 x 4.7 x 3.1 cm. The endometrial complex measures 6 mm in thickness. Linear e chogenic and shadowing IUD is seen within the endometrial canal. The right ovary measures 1.9 x 1.2 x 1.7 cm. The left ovary measures 4.0 x 4.1 x 3.7 cm. And contains a 3.0 x 2.8 x 2.3 cm anechoic cyst/ follicle. Vascular flow identified at both ovaries on color Doppler. There is no free fluid in the pe lvis. IMPRESSION: 1. IUD in expected position within the endometrial complex with normal thickness of 6 mm 2. 3.0 cm left adnexal cyst/follicle. Reviewed, dictated and finalized at location A. IMPRESSION: 1. IUD in expected position within the endometrial complex with normal thicknes s of 6 mm 2. 3.0 cm left adnexal cyst/follicle.
== END 2021-06-18 10:10 | disposition home or self-care (01) ==
PROVIDERS: PCP Physician Assistant; Visit Provider Advanced Practice Midwife
DX: R10.2 Pelvic and perineal pain (principal); Z97.5 Presence of (intrauterine) contraceptive device; N83.8 Other noninflammatory disorders of ovary, fallopian tube and broad ligament
CPT/HCPCS: 76856

== ENCOUNTER 2021-11-04 09:19 | Emergency (ER) | payer OTHER, SELFPAY ==
[2021-11-04 09:25] VITALS: BP 129/84; PULSE 67; RESP 16; TEMP 36.3; O2SAT 100
--- NOTE | 2021-11-04 09:28 | ED.HA ---
HPI - Headache General Chief Complaint: Dizziness Stated Complaint: Dizziness/Headache Time Seen by Provider: 11/04/21 09:29 Source: patient Mode of arrival: ambulatory Limitations: no limitations History of Present Illness HPI Narrative: Ms. Alfaro is a 21-year-old female patient presenting to the clinic today with complaints of headache, nasal congestion, dizziness, nausea, vomiting, and diarrhea, that all began this morning when she woke up. She denies any fevers but has had chills. Also reports having a sore throat yesterday but this is improved. Related Data Home Medications Medication Instructions Recorded Confirmed levonorgestrel 20 mcg/24 hours (7 1 device intrauterine ONCE 11/04/21 11/04/21 yrs) 52 mg intrauterine device (Mirena) Allergies Allergy/AdvReac Type Severity Reaction Status Date / Time amoxicillin Allergy Mild Hives Verified 11/04/21 09:31 Review of Systems Review of Systems: Pertinent positives per HPI. Patient denies any fever, chills, rash, headache, visual changes, dizziness, cough, runny nose, sore throat, shortness of breath, chest pain, palpitations, nausea, vomiting, diarrhea, constipation, abdominal pain, or any urinary issues. [facility] Past Medical History Medical History Migraine No significant medical problems Surgical History Surgical History No significant past surgical history Family History Family History Mother Adopted Social History Social History Smoking status: Former smoker Tobacco type: e-cigarettes/vaping Second hand tobacco smoke exposure: No Smoking end date: 01/10/19 Additional smoking assessment comments: former smoker, now vapes Alcohol intake: never Substance use: current Substance use type: marijuana Last use: 1 week ago Gender identity (if verbalized by the patient): Female Sexual Orientation (if Verbalized by the Patient): Straight or Heterosexual Spiritual care concerns: No Comments At the time of my signature, I reviewed and agree with the nursing past medical, surgical, social, and family history. There is no relevant family history pertinent to the patient complaint. Exam Narrative: General: Well-developed, well nourished, in no apparent distress Head: Normocephalic, atraumatic, reports headache to the front of her head radiating to the parietal lobes Eyes: Pupils equally round and reactive to light bilaterally, EOM intact, sclera and conjunctive clear, no discharge, lids normal Ears: TMs intact and congested ear canals clear, no drainage, grossly hearing normal. Nose: Nares patent, clear nasal discharge, moderate inflammation, no sinus tenderness. Mouth: Oropharynx without lesions or masses, good dentition, MMM. Oropharynx red with mild tonsillar enlargement Neck: Supple, trachea midline, no enlargement of anterior or posterior cervical nodes, no thyroid masses or goiter palpable. Cardio: Regular rate and rhythm, s1 and s2 normal, no murmur appreciated. Resp: Clear to auscultation bilaterally anteriorly and posteriorly, no rhonchi, rales, wheezing or rubs Abdomen: Soft, pliable, nontender to palpation, bowel sounds present all 4 quadrants, no organomegaly, no CVAT tenderness Course Course Emergency Course: Portions of this record may have been created with voice recognition software. Level of Care: Express Care Visit Vital Signs Vital signs: Vital signs reviewed MDM - Headache MDM Narrative Medical decision making narrative: At the time of visit patient is resting comfortably on the exam table. I suspect the patient has viral syndrome viral gastroenteritis. I will give her a prescription for some Zofran for the nausea. Supportive measures were discussed w
[2021-11-04] MEDS: KETOROLAC (*BKC) 60 MG/2 ML VIAL IM (09:46)
== END 2021-11-04 10:16 | disposition home or self-care (01) ==
PROVIDERS: Emergency Provider Nurse Practitioner Family; PCP Physician Assistant
DX: J06.9 Acute upper respiratory infection, unspecified (principal); K52.9 Noninfective gastroenteritis and colitis, unspecified; Z20.822 Contact with and (suspected) exposure to COVID-19; F17.290 Nicotine dependence, other tobacco product, uncomplicated
CPT/HCPCS: 87081; 87426; 96372; 99213; C9803; G0463; J1885

== ENCOUNTER 2021-12-17 15:10 | Outpatient (CLI) | payer OTHER, SELFPAY ==
--- NOTE | ~2021-12-17 | US_ITS ---
US breast RT limited DATE: 12/17/2021 15:50 INDICATION: Breast lump TECHNIQUE: Real-time imaging and color flow imaging targeted to the right breast 4:00 subareolar mass COMPARISON: None FINDINGS: 4:00 subareolar area: There is an approximately 1.6 x 0.8 x 1.7 cm heterogeneous mixed hypoechoic and isoechoic and hyperechoic lesion with very prominent vascularity on color flow imaging. Differential diagnosis for a perivascular breast tumor includes angiomyolipoma and hemangioma. Angiosarcoma needs to be excluded. Breast surgeon consultation is recommended. IMPRESSION: BI-RADS Category 4: Suspicious abnormality; breast surgeon consultation is advised Reviewed, dictated and finalized at Location A. Reviewed, dictated and finalized at location A. IMPRESSION: BI-RADS Category 4: Suspicious abnormality; breast surgeon consulta tion is advised
== END 2021-12-17 15:11 | disposition home or self-care (01) ==
PROVIDERS: PCP Physician Assistant; Visit Provider Nurse Practitioner
DX: R92.8 Other abnormal and inconclusive findings on diagnostic imaging of breast (principal); N63.0 Unspecified lump in unspecified breast
CPT/HCPCS: 76642

== ENCOUNTER 2021-12-18 10:53 | Emergency (ER) | payer OTHER, SELFPAY ==
[2021-12-18 10:56] VITALS: BP 123/68; PULSE 80; RESP 16; TEMP 36.7; O2SAT 99
--- NOTE | 2021-12-18 11:14 | ED.SKABFB ---
HPI - Skin/Abscess/Foreign Bdy General Chief complaint: Skin/Abscess/Foreign Body Stated complaint: lump on breast causing pain Time Seen by Provider: 12/18/21 10:59 History of Present Illness HPI narrative: 21-year-old female presents to the emergency room for evaluation of a painful right breast. Patient states that she began experiencing a painful, red and warm lump on her breast just medial to the nipple. Denies any purulent discharge. Was seen at her primary care physician's office yesterday and had an ultrasound obtained. Patient has been on Bactrim since yesterday. States the pain and redness is getting worse. Denies fevers. No known history of breast cancer or her immediate family. Patient states that she is not breast-feeding at this time. Related Data Home Medications Medication Instructions Recorded Confirmed levonorgestrel 20 mcg/24 hours (7 1 device intrauterine ONCE 11/04/21 11/04/21 yrs) 52 mg intrauterine device (Mirena) sulfamethoxazole 800 tablet 12/18/21 mg-trimethoprim 160 mg tablet Allergies Allergy/AdvReac Type Severity Reaction Status Date / Time amoxicillin Allergy Mild Hives Verified 11/04/21 09:31 [facility] Past Medical History Medical History Migraine No significant medical problems Surgical History Surgical History No significant past surgical history Family History Family History Mother Adopted Social History Social History Smoking status: Former smoker Tobacco type: e-cigarettes/vaping Second hand tobacco smoke exposure: No Smoking end date: 01/10/19 Additional smoking assessment comments: former smoker, now vapes Alcohol intake: never Substance use: current Substance use type: marijuana Last use: 1 week ago Gender identity (if verbalized by the patient): Female Sexual Orientation (if Verbalized by the Patient): Straight or Heterosexual Spiritual care concerns: No Course Vital Signs Vital signs: Vital Signs Temperature 36.7 C 12/18/21 10:56 Pulse Rate 80 12/18/21 10:56 Respiratory Rate 16 12/18/21 10:56 Blood Pressure 123/68 12/18/21 10:56 Pulse Oximetry 99 12/18/21 10:56 Oxygen Delivery Room Air 12/18/21 10:56 Temperature 36.7 C 12/18/21 10:56 Pulse Rate 80 12/18/21 10:56 Respiratory Rate 16 12/18/21 10:56 Blood Pressure 123/68 12/18/21 10:56 Pulse Oximetry 99 12/18/21 10:56 Oxygen Delivery Room Air 12/18/21 10:56 MDM - Skin/Abscess/Foreign Bdy Lab Data Result diagrams: 12/18/21 11:24 12/18/21 11:24 Labs: Lab Results 12/18/21 12/18/21 12/18/21 Range/Units 11:24 11:24 11:24 WBC 8.7 (4.5-10.0) K/mm3 RBC 4.71 (4.2-5.4) M/mm3 Hgb 15.0 D (12.0-15.0) g/dL Hct 42.8 (37.0-47.0) % MCV 90.9 (80-100) fl MCH 31.8 (26-34) pg MCHC 35.0 (32-36) g/dl RDW 11.5 (11.5-14.5) % Plt Count 342 (150-375) k/mm3 MPV 8.9 (7.4-10.4) fl Immature Gran % (Auto) 0.1 (0-0.5) % Neut % (Auto) 71.0 (45.5-73.1) % Lymph % (Auto) 21.4 (18.3-44.2) % [place] % (Auto) 6.0 (2.6-8.5) % Eos % (Auto) 1.0 (0-4.4) % Baso % (Auto) 0.5 (0.2-1.2) % Lymph # (Auto) 1.86 (0.9-3.2) K/mm3 [place] # (Auto) 0.5 (0.1-0.6) K/mm3 Eos # (Auto) 0.1 (0-0.3) K/mm3 Baso # (Auto) 0.0 (0.0-0.1) K/mm3 Abs Immat Gran (auto) 0.01 (0.00-0.031) K/mm3 Absolute Neuts (auto) 6.2 (1.3-6.7) K/mm3 Absolute Nucleated RBC 0.0 (0.0-0.012) K/mm3 Nucleated RBC % 0.0 (0.0-0.2) % Sodium 138 (137-145) mmol/L Potassium 4.2 (3.4-5.0) mmol/L Chloride 101 (98-107) mmol/L Carbon Dioxide 28 (22-30) mmol/L Anion Gap 9 (8-16) mmol/L BUN 11 (7-17)
[2021-12-18 11:42] LABS: Anion Gap 9 mmol/L (8-16); Blood Urea Nitrogen 11 mg/dL (7-17); Calcium 9.6 mg/dL (8.4-10.2); Carbon Dioxide 28 mmol/L (22-30); Chloride 101 mmol/L (98-107); Estimated CRCL calculation 80 ml/min; Estimated Glomerular Filt Rate > 60; Glucose 88 mg/dL (65-110); Lactic Acid Reflex 0.9 mmol/L (0.7-2.0); Potassium 4.2 mmol/L (3.4-5.0); Sodium 138 mmol/L (137-145)
[2021-12-18 12:04] LABS: Basophils Percent Auto 0.5 % (0.2-1.2); Eosinophils Absolute Auto 0.1 K/mm3 (0-0.3); Hematocrit 42.8 % (37.0-47.0); Immature Granulocyte Absolute 0.01 K/mm3 (0.00-0.031); Immature Granulocyte Percent A 0.1 % (0-0.5); Lymphocytes Absolute Auto 1.86 K/mm3 (0.9-3.2); Lymphocytes Percent Auto 21.4 % (18.3-44.2); Mean Corpuscular Hemoglobin 31.8 pg (26-34); Mean Corpuscular Volume 90.9 fl (80-100); Mean Platelet Volume 8.9 fl (7.4-10.4); Monocytes Absolute Auto 0.5 K/mm3 (0.1-0.6); Neutrophils Absolute Auto 6.2 K/mm3 (1.3-6.7); Platelet Count Result 342 k/mm3 (150-375); Red Blood Count 4.71 M/mm3 (4.2-5.4); Red Cell Distribution Width 11.5 % (11.5-14.5); White Blood Count 8.7 K/mm3 (4.5-10.0)
[2021-12-18 13:28] VITALS: BP 126/87; PULSE 78; RESP 16; O2SAT 98
== END 2021-12-18 13:29 | disposition home or self-care (01) ==
PROVIDERS: Emergency Provider Nurse Practitioner Family; PCP Physician Assistant
DX: N61.1 Abscess of the breast and nipple (principal); F17.290 Nicotine dependence, other tobacco product, uncomplicated
CPT/HCPCS: 36415; 80048; 83605; 85025; 99283

== ENCOUNTER 2021-12-22 00:50 | Day surgery (SDC) | payer OTHER, SELFPAY ==
[2021-12-21 14:35] VITALS: BMI 20.9
--- NOTE | 2021-12-21 14:42 | PC.NURSE ---
Report to the Outpatient Waiting Room, entrance under the green pavilion located off [facility], at time 1100 on date 12/22/21. OR Time: 1300. Time changes happen often and if your time is changed the preop area will call you the afternoon before. - You and your visitor will be asked to self-screen and do not enter if you have any COVID symptoms. - Only one visitor and NO children visitors are allowed at this time. - The patient visitor is requested to leave or wait in car when not with patient due to restrictions. - A mask is required within the hospital. Patients may have clear liquids (water, carbonated beverages, clear teas, apple juice) until 3 hours prior to surgery with a maximum of 20 ounces. - No food from midnight until time of surgery Take the following medications with a SIP of water the morning of surgery: ANTIBIOTIC, TRAMADOL IF NEEDED Medications to discontinue per physician: N/A Date to take last dose: N/A Please no make-up, nail macedonian, hairspray, perfume, deodorant, or body powder the day of surgery. No jewelry (including any body piercings) or valuables the day of surgery, leave them at home. Please take a shower or bath the night before, or the morning of, surgery with an antibacterial soap. Wear comfortable, loose fitting clothing. - Jewelry must be removed prior to entering the operating room. Rings and piercings that are not removed may be cut off. - The hospital will not accept responsibility for valuables. - Please leave all valuables, including medications, at home the day of surgery. If you are going home after surgery, a licensed water taxi driver must drive you home. - NO public transportation without another adult. - We recommend that an adult stay with you for 24 hours following discharge. - We also recommend that you do not drive, make important decision, drink alcoholic beverages, or take any drugs that were not prescribed by your health care provider for at least 24 hours after your discharge time. Follow any additional instructions given to you from your surgeon. If you or anyone in your household have experienced Covid symptoms in the past week, please notify your surgeon or the nurse liaison at the phone number below for possible testing. Telephone instructions given to PT - DARIANA RODRIGUEZ and asked if any additional questions and then verbalized understanding. Patient advised to call surgeon office or pre surgery nurse liaison [phone] if any additional questions.
[2021-12-22] VITALS (7 sets, daily range): BP systolic 101–127; BP diastolic 61–71; PULSE 52–112; RESP 14–24; TEMP 36.2; O2SAT 99–100
[2021-12-22] MEDS: LACTATED RINGERS 1,000 ML 30 ML IV CONT ×2 (11:24→14:03)
--- NOTE | 2021-12-22 11:25 | WPDHPUPDATE1 ---
History and Physical Update Update Date/Time: 12/22/21 11:25 History and Physical has been reviewed, including an updated exam of the patient. There are NO changes in the patient's condition. Risks, benefits, and alternatives have been discussed and questions answered. Patient agrees to proceed with procedure.
[2021-12-22] MEDS: KETOROLAC 15 MG/ML VIAL (*BKC) IV PUSH (11:28)
--- NOTE | 2021-12-22 12:39 | P.PNAN_ITS ---
Anes - Initial Pre Proc Eval Procedure: Operation Date: 12/22/21 13:00 Proposed Procedures p Complex Incision and Drainage of Right Breast Abscess - Sylvia Bravo MD Date/Time: 12/22/21 12:39 Surgeon: Sylvia Bravo MD Pre Op Diagnosis: right breast abscess Patient Data Age: 21 Gender: F Height: 1.68 m Weight: 58 kg Allergies Allergy/AdvReac Type Severity Reaction Status Date / Time amoxicillin Allergy Mild Hives Verified 12/21/21 14:35 Home Medications Medication Instructions Recorded Confirmed Type sulfamethoxazole 800 1 tablet PO BID 12/18/21 12/22/21 History mg-trimethoprim 160 mg tablet tramadol 50 mg tablet 50 mg PO Q6H PRN pain #14 tabs 12/18/21 12/22/21 Rx Patient hx anesthesia problems: post op nausea/vomiting (states has motion sickness; never had anesthesia) Family hx anesthesia problems: none Results Review: All pre-operative results and documents have been reviewed as part of the pre- operative evaluation. [facility] Past Medical History Medical History Migraine No significant medical problems Surgical History Surgical History No significant past surgical history Family History Family History Mother Adopted Social History Social History Smoking status: Never smoker Tobacco type: e-cigarettes/vaping Second hand tobacco smoke exposure: No Smoking end date: 01/10/19 Additional smoking assessment comments: former smoker, now vapes Alcohol intake: current Drinks per week: 1 Substance use: current Substance use type: marijuana Last use: 1 week ago Living arrangements: with family Gender identity (if verbalized by the patient): Female Sexual Orientation (if Verbalized by the Patient): Straight or Heterosexual Spiritual care concerns: No Anes - Eval Final PreProcedure Day of Procedure 12/22/21 12:39 Patient weight: normal Heart: regular rate and rhythm Lungs: clear to auscultation Airway: Mallampati scale class II Neurological: alert and oriented Last oral intake: >/= 8 hours ASA classification: II Emergent: no Anesthetic plan: proceed Anesthesia type and monitoring: general GIVS and LMA and standard monitoring Results Review: All pre-operative results and documents have been reviewed as part of the pre- operative evaluation. Informed Consent: The patient's anesthetic plan and its attendant risks and benefits were discussed with the patient/family/POA. Questions were solicited and answers provided to the satisfaction of the patient/family/POA.
[2021-12-22] MEDS: SCOPOLAMINE 1.5 MG PATCH TRANSDERM (13:09)
[2021-12-22] MEDS: ceFAZolin 2 GM/D5W 50 ML 2 GM/50 ML BAG IVPB (13:33)
[2021-12-22] MEDS: BUPIVACAINE/EPINEPHRINE 0.25% 50 ML VIAL 10 ML INFILTRATE (14:00)
--- NOTE | 2021-12-22 14:04 | W.PM.PROC2 ---
Procedure Note - Detailed Date of Procedure 12/22/21 Pre-op Diagnosis right breast abscess Post-op Diagnosis Same Procedure Performed Complex incision and drainage right breast abscess measuring approximately 4 x 3 x 3 cm Surgeon Sylvia Bravo MD Anesthesia MAC and Local Indications 21-year-old female with a large right breast abscess worsening over the last week Findings 4 x 3 x 3 cm right breast abscess with large amount purulent drainage Description of Procedure The patient was taken to the operating room placed in the supine position. After adequate induction of MAC anesthesia, the patient was prepped and draped in normal sterile fashion. A time-out was then done to verify the patient's identity, as well as procedure being performed. I began by localizing the area in and around this abscess in the right breast. Once adequate local was placed, I made an incision over the most fluctuant area of this abscess. A large amount of pus was immediately drained. I then obtained sterile cultures. I then used a hemostat to bluntly dissect around this cavity and break up further loculations. Once the cavity was completely drained and measured approximately 4 x 3 x 3 cm. I then copiously irrigated the cavity. Half-inch iodoform packing was then placed into the cavity to keep the area open and draining. Sterile dressing was then placed. The patient tolerated the procedure well and was alert and awake in the operating room postoperatively. She will be sent to the recovery room in stable condition. Estimated Blood Loss 5 Drains No Packing Yes Pathology None sent Complications No immediate complications Condition Stable Disposition PACU [facility] Billing Surgery - Charge Forward: Surgery Billing
[2021-12-22] MEDS: oxyCODONE HCL (*CRX) 5 MG TAB IR PO (15:15)
== END 2021-12-22 15:59 | disposition home or self-care (01) ==
PROVIDERS: PCP Physician Assistant; Visit Provider Surgery
PROC: (CPT 19020; principal; 2021-12-22 13:00)
DX: N61.1 Abscess of the breast and nipple (principal); R11.2 Nausea with vomiting, unspecified; Z87.891 Personal history of nicotine dependence; F12.90 Cannabis use, unspecified, uncomplicated
CPT/HCPCS: 19020; 87070; 87075; 87147; 87186; 87205; A9270; J0690; J1100; J1885; J2250; J2405; J2704; J3010; J7120

== ENCOUNTER 2022-01-04 09:23 | Emergency (ER) | payer OTHER, SELFPAY ==
[2022-01-04 09:32] VITALS: BP 118/71; PULSE 77; RESP 16; TEMP 36.9; O2SAT 100
--- NOTE | 2022-01-04 09:32 | ED.URI ---
HPI - URI/Sore Throat General Chief Complaint: Upper Respiratory Infection Stated Complaint: sore throat Time Seen by Provider: 01/04/22 10:08 Source: patient and RN notes reviewed Mode of arrival: ambulatory Limitations: no limitations History of Present Illness HPI Narrative: 21-year-old female presents with concern for sore throat, cough, chest congestion that started yesterday. Reports her child was diagnosed with RSV recently. She reports taking painkiller this morning with little relief. She reports history of strep. MD elicited complaint: cough and sore throat Related Data Allergies Allergy/AdvReac Type Severity Reaction Status Date / Time amoxicillin Allergy Mild Hives Verified 01/04/22 10:03 Review of Systems Review of Systems: CONSTITUTIONAL: Reports malaise. Denies chills, sweats, or fever. EYES: Denies visual changes, redness, or discharge. ENT: Denies rhinorrhea, congestion, sinus pain, otalgia. Reports sore throat. CARDIOVASCULAR: Denies chest pain, palpitations, or edema. RESPIRATORY: Reports cough and chest congestion Denies dyspnea. GASTROINTESTINAL: Denies abdominal pain, nausea, vomiting, diarrhea SKIN: Denies rash or itching. MUSCULOSKELETAL: Denies myalgia. NEUROLOGIC: Denies headache. All systems reviewed & are unremarkable except as noted in HPI and below PMFSH Past Medical History Medical History Migraine No significant medical problems Surgical History Surgical History No significant past surgical history Family History Family History Mother Adopted Social History Social History Smoking status: Never smoker Tobacco type: e-cigarettes/vaping Second hand tobacco smoke exposure: No Smoking end date: 01/10/19 Additional smoking assessment comments: former smoker, now vapes Alcohol intake: current Drinks per week: 1 Substance use: current Substance use type: marijuana Last use: 1 week ago Gender identity (if verbalized by the patient): Female Sexual Orientation (if Verbalized by the Patient): Straight or Heterosexual Spiritual care concerns: No Comments At time of signature, agree with nursing past medical, surgical, social and family history. There is no relevant family history pertinent to the presenting complaint Exam Narrative: GENERAL: Well-appearing, well-nourished, and in no acute distress. HEAD: Normocephalic EYES: PERRLA, conjunctivae clear ENT: Nares clear. Mucous membranes moist. TM pearly quintero with sharp light reflex bilaterally; no tragal tenderness. Oropharynx erythematous without lesions. Tonsils not enlarged and without exudate, no drooling, no hoarseness, no trismus, uvula midline. NECK: Supple. No lymphadenopathy CHEST: Clear to auscultation, breath sounds equal. No wheezing, rhonchi, rales, or stridor. No respiratory distress, speaks in full sentences. HEART: Regular rate and rhythm. No murmur heard. SKIN: Warm, dry, no rash. NEURO: Alert and oriented x3. PSYCH: Normal mood and affect Course Course Emergency Course: Patient is aware of diagnosis, understands and agrees to treatment plan. Anticipatory guidance given. Patient agrees to follow-up as directed and is aware of reasons to seek care at the emergency department. Portions of this record may have been created with voice recognition software Level of Care: Express Care Visit Vital Signs Vital signs: Reviewed. MDM - URI/Sore Throat MDM Narrative Medical decision making narrative: Differential diagnosis considered: Toro virus, strep pharyngitis, allergic rhinitis, upper respiratory tract infection, sinusitis, rhinosinusitis, nasopharyngitis. viral pharyngitis, otitis media, otitis externa, pneumonia, bronchitis, viral cough syndrome, viral syndrome, a
== END 2022-01-04 10:30 | disposition home or self-care (01) ==
PROVIDERS: Emergency Provider Nurse Practitioner; PCP Physician Assistant
DX: J06.9 Acute upper respiratory infection, unspecified (principal); F17.290 Nicotine dependence, other tobacco product, uncomplicated
CPT/HCPCS: 87081; 87420; 87804; 87880; 99213; G0463

== ENCOUNTER 2022-12-30 23:11 | Inpatient (IN) | payer OTHER, SELFPAY ==
[2022-12-30 23:59] VITALS: BP 121/82; PULSE 64
[2022-12-31] VITALS (122 sets, daily range): BP systolic 88–209; BP diastolic 40–187; PULSE 52–158; RESP 16; TEMP 36.4–37; O2SAT 86–100; BMI 25.2
[2022-12-31 00:12] LABS: Basophils Percent Auto 0.2 % (0.2-1.2); Eosinophils Absolute Auto 0.1 K/mm3 (0-0.3); Eosinophils Percent Auto 0.6 % (0-4.4); Hematocrit 38.2 % (37.0-47.0); Immature Granulocyte Absolute 0.03 K/mm3 (0.00-0.031); Immature Granulocyte Percent A 0.3 % (0-0.5); Lymphocytes Absolute Auto 2.18 K/mm3 (0.9-3.2); Lymphocytes Percent Auto 21.3 % (18.3-44.2); Mean Corpuscular Hemoglobin 31.6 pg (26-34); Mean Corpuscular Volume 92.7 fl (80-100); Mean Platelet Volume 10.2 fl (7.4-10.4); Monocytes Absolute Auto 0.7 K/mm3 (0.1-0.6); Monocytes Percent Auto 7.2 % (2.6-8.5); Neutrophils Absolute Auto 7.2 K/mm3 (1.3-6.7); Neutrophils Percent Auto 70.4 % (45.5-73.1); Platelet Count Result 231 k/mm3 (150-375); Red Blood Count 4.12 M/mm3 (4.2-5.4); Red Cell Distribution Width 11.8 % (11.5-14.5); White Blood Count 10.2 K/mm3 (4.5-10.0)
--- NOTE | 2022-12-31 00:24 | LDADM ---
This patient, Kali Alfaro, was admitted to Labor/Delivery/Recovery 105 on 12/30/22 at 23:11. Plans for labor, pain management and were discussed with patient. Patient/family oriented to hospital policies and general routines including ID bracelet, bed and alarms, visiting hours, pain management, procedures, bathroom and other care routines, personal items, smoking policy, room service/diet and guest tray routines, security routines, and visiting hours. Patient/Family are encouraged to report perceived risks to care and to ask questions if they do not understand what they are told or what they should do. See OBIX for further documentation.
[2022-12-31] MEDS: LACTATED RINGERS 1,000 ML 125 ML IV CONT ×3 (01:28→03:43)
--- NOTE | 2022-12-31 02:21 | WPDANESEPPF ---
Anes - Initial Pre Proc Eval Procedure: Labor epidural Date/Time: 12/31/22 02:21 Surgeon: Mima Pratt MD Pre Op Diagnosis: Labor pain Pre Op Diagnosis: IOL Patient Data Age: 22 Gender: F Height: 1.68 m Weight: 70.9 kg Last Vital Signs Temp 36.6 C 12/31/22 01:33 Pulse 68 12/31/22 02:16 BP 143/97 H 12/31/22 02:16 Pulse Ox 100 12/31/22 02:21 O2 Del Method Room Air 12/31/22 00:19 Allergies Allergy/AdvReac Type Severity Reaction Status Date / Time amoxicillin Allergy Mild Hives Verified 01/12/22 09:05 Home Medications Medication Instructions Recorded Confirmed Type vits no.126-ferrous fum 1 tablet DAILY 12/02/22 12/02/22 History 28 mg iron-folic acid 800 mcg tablet (Classic ) Laboratory Tests 12/30/22 23:45 WBC 10.2 H K/mm3 (4.5-10.0) RBC 4.12 L M/mm3 (4.2-5.4) Hgb 13.0 g/dL (12.0-15.0) Hct 38.2 % (37.0-47.0) MCV 92.7 fl (80-100) MCH 31.6 pg (26-34) MCHC 34.0 g/dl (32-36) RDW 11.8 % (11.5-14.5) Plt Count 231 k/mm3 (150-375) MPV 10.2 fl (7.4-10.4) Immature Gran % (Auto) 0.3 % (0-0.5) Neut % (Auto) 70.4 % (45.5-73.1) Lymph % (Auto) 21.3 % (18.3-44.2) [place] % (Auto) 7.2 % (2.6-8.5) Eos % (Auto) 0.6 % (0-4.4) Baso % (Auto) 0.2 % (0.2-1.2) Lymph # (Auto) 2.18 K/mm3 (0.9-3.2) [place] # (Auto) 0.7 H K/mm3 (0.1-0.6) Eos # (Auto) 0.1 K/mm3 (0-0.3) Baso # (Auto) 0.0 K/mm3 (0.0-0.1) Abs Immat Gran (auto) 0.03 K/mm3 (0.00-0.031) Absolute Neuts (auto) 7.2 H K/mm3 (1.3-6.7) Absolute Nucleated RBC 0.0 K/mm3 (0.0-0.012) Nucleated RBC % 0.0 % (0.0-0.2) RPR Pending Blood Type O Positive Antibody Screen Negative Patient hx anesthesia problems: none Family hx anesthesia problems: none Results Review: All pre-operative results and documents have been reviewed as part of the pre-operative evaluation. [facility] Past Medical History Medical History Migraine No significant medical problems Surgical History Surgical History History of incision and drainage Complex I&D R breast abscess on 12/22/21. No significant past surgical history Family History Family History Mother Adopted Social History Social History Smoking status: Never smoker Tobacco type: e-cigarettes/vaping Second hand tobacco smoke exposure: No Smoking end date: 01/10/19 Additional smoking assessment comments: former smoker, now vapes Alcohol intake: current Drinks per week: 1 Substance use: current Substance use type: marijuana Last use: 11/29/22 Lack of Transportation: No Lack of Food: Never True Current Housing: I Have Housing Concerned About Future Housing: No Difficulty Paying Gas/Electric Bills: No Difficulty Paying for Meds: No Currently Unemployed: No Education: Associate Degree Difficulty w/ Childcare or Family Care: No Living arrangements: with family Gender identity (if verbalized by the patient): Female Sexual Orientation (if Verbalized by the Patient): Straight or Heterosexual Spiritual care concerns: No Anes - Eval Final PreProcedure Day of Procedure 12/31/22 02:21 Patient weight: normal Heart: regular rate and rhythm Neurological: alert and oriented ASA classification: II Anesthesia type and monitoring: regional epidural and standard monitoring Results Review: All pre-operative results and documents have been reviewed as part of the pre-operative evaluation. Informed Consent: The patient's anesthetic plan and its attendant risks and benefits were discussed with the patient/family/POA. Questions were solicited and answers provided to th
--- NOTE | 2022-12-31 02:53 | WPDANESEPN ---
Anes - Epidural Procedure Note Date/Time: 12/31/22 02:53 Consent: I have discussed with the patient/family/POA, the placement of an epidural catheter and the use of epidural narcotic/local anesthetic for labor analgesia and/or postoperative pain management, including associated potential risks, benefits, complications and side effects. I have discussed alternative methods of labor analgesia and/or postoperative pain management. The patient/family/POA, understand(s) and wish(es) to proceed with epidural narcotic/local anesthetic for labor analgesia and/or postoperative pain management. Time-Out: A pre-procedural Time-Out was completed immediately before starting the procedure and confirmed: Patient Identification, Site, Procedure, Patient Position and the Availability of Requisite Equipment. Clinical Indications: Labor pain Epidural Insertion Note Patient position: sitting Skin prep: chlorhexidine and sterile drape Needle: 18g Tuohy-Schliff Catheter: 20g Unstyleted Technique: Loss of resistance. Level of insertion: L4/5 Catheter skin she (cm): 10 Length in epidural space (cm): 5 Skin anesthesia: lidocaine 1% Test dose: 1.5% Lidocaine with 1:[id number] Epi, negative for subarachnoid Inj and negative for intravascular Inj Time of test dose: 02:40 Observations: tolerated well Complications: none
[2022-12-31] MEDS: ONDANSETRON INJ 4 MG/2 ML VIAL IV PUSH (03:30)
[2022-12-31] MEDS: OXYTOCIN 30 UNITS/NS 500 ML 30 UNITS/500 ML BAG 999 UNITS IV CONT (04:54)
--- NOTE | 2022-12-31 05:04 | PM.OBPRVD ---
OB - Delivery Note Procedure Delivery date: 12/31/22 Procedure: Induction method: None Delivery augmentation: Rupture of Membranes Delivery monitor: External FHT and External Uterine Episiotomy description: None Laceration Description: Perineal - 1st Degree Delivery repair: vicryl Specimen: No Quantitative Blood Loss (ml): 75 Anesthesia type: Epidural Disposition: Floor Baby Date of : 12/31/22 Time of : 04:50 Weeks of gestation at delivery: 40 Infant gender: Male presentation: vertex position: Left Occiput Anterior Placenta delivery description: Spontaneous Cord Vessel Description: 3 Vessels, Nuchal Cord, Loose, Reduced and Delayed Cord Clamping Narrative: mother and baby skin to skin in stable condition
[2022-12-31] MEDS: OXYTOCIN 30 UNITS/NS 500 ML 30 UNITS/500 ML BAG 125 UNITS IV CONT (05:27)
[2022-12-31] MEDS: BENZOCAINE 20% AER SPR (*SP) 56 GM CAN 1 SPRAY TOPICAL (07:13)
[2022-12-31] MEDS: WITCH HAZEL 40 PADS 1 PAD TOPICAL (07:13)
[2022-12-31] MEDS: miSOPROStol 200 MCG TABLET 800 MCG RECTAL (07:25)
[2022-12-31] MEDS: IBUPROFEN 600 MG TABLET PO ×2 (08:01→23:58)
--- NOTE | 2022-12-31 08:18 | PC.NURSE ---
Patient transferred to post room #290 via (w/c ). Support person present. Oriented to unit, room, information board, rooming in, admission packet and security measures. Patient verbalizes understanding.
[2022-12-31] MEDS: ACETAMINOPHEN 325 MG TABLET 650 MG PO ×2 (12:11→18:44)
[2022-12-31] MEDS: MULTIVIT/MIN/PREN/FOL AC/IRON TABLET 1 TAB PO (12:11)
[2022-12-31] MEDS: DOCUSATE SODIUM 100 MG CAPSULE PO (15:21)
[2023-01-01 05:15] VITALS: BP 112/82; PULSE 52; RESP 16; TEMP 36.6
[2023-01-01 05:40] LABS: Hematocrit 35.4 % (37.0-47.0); Hemoglobin 11.7 g/dL (12.0-15.0)
[2023-01-01 07:50] VITALS: BP 112/73; PULSE 60; RESP 18; TEMP 36.2; O2SAT 100
--- NOTE | 2023-01-01 09:42 | PM.OBPNVD ---
OB - PN: Subj Subjective Date/time seen: 01/01/23 09:42 Interval history: pp day 1 doing well would like d/c home OB - PN: Obj Data Labs 01/01/23 05:21 Labs: Laboratory Results - last 24 hr 01/01/23 05:21 Hgb 11.7 L Hct 35.4 L OB - PN A/P Plan day: 1 Plan: routine care and discharge home Time Spent With Patient Time: Total time spent is greater than 50% in coordination of care (as documented) at patient's floor/unit and/or counseling patient: Review of Systems Review of Systems: All systems reviewed & are unremarkable except as noted in HPI and below Exam Const: General: cooperative and healthy appearing Resp: Effort & Inspection: normal respiratory effort Cardio: Rate: regular rate Rhythm: regular rhythm GI: Other: soft Skin: General skin exam: normal color Extrem: Right lower extremity: normal to inspection Left lower extremity: normal to inspection
--- NOTE | 2023-01-01 09:43 | P.DS_ITS ---
DS: Admitting Diagnosis Discharge Date 12/29/22 Admitting Diagnosis labor DS: Discharge Diagnosis Discharge Diagnosis (1) Vaginal delivery: Code(s): O80 - Encounter for full-term uncomplicated delivery Status: Acute OB - DS: Summary OB Procedures : None OB Procedures Intrapartum: Spontaneous Vag Delivery OB Procedures: : None Time Spent with Patient Time attestation: Total time spent providing and/or coordinating discharge services: DS: Data Data Completed and Pending Labs on day of discharge: Labs from last 24 hours 01/01/23 05:21 Hgb 11.7 L Hct 35.4 L Discharge Plan Discharge Attending physician on discharge: Mima Pratt Discharging Clinician: Anali Jesus Patient Disposition: Home, Self-Care Activity: pelvic rest Diet: regular Patient Instructions: Antibiotic Form Stand Alone Forms: General Discharge Information Follow-up/Referrals: Anali Jesus, CNM [Certified Nurse Electrical Maintenance Supervisor] - 4 Weeks Discharge Medications: New ibuprofen 600 mg Tablet 600 mg PO Q6H PRN (Reason: Cramping) Qty: 30 0RF Continued Classic 28 mg iron- 800 mcg Tablet 1 tablet DAILY Date of admission: 12/30/22 23:11 Primary Care Provider: LeannDevon Admitting Provider: Mima Pratt Attending physician on admission: Mima Pratt Condition: Stable
--- NOTE | 2023-01-01 09:44 | P.DS_ITS ---
DS: Admitting Diagnosis Discharge Date 01/01/23 Admitting Diagnosis labor OB - DS: Summary OB Procedures : None OB Procedures Intrapartum: Spontaneous Vag Delivery OB Procedures: : None Time Spent with Patient Time attestation: Total time spent providing and/or coordinating discharge services: DS: Data Data Completed and Pending Labs on day of discharge: Labs from last 24 hours 01/01/23 05:21 Hgb 11.7 L Hct 35.4 L Discharge Plan Discharge Attending physician on discharge: Mima Pratt Discharging Clinician: Anali Jesus Patient Disposition: Home, Self-Care Activity: pelvic rest Diet: regular Patient Instructions: Antibiotic Form Stand Alone Forms: General Discharge Information Follow-up/Referrals: Anali Jesus, CNM [Certified Nurse Manager Media Relations] - 4 Weeks Discharge Medications: New ibuprofen 600 mg Tablet 600 mg PO Q6H PRN (Reason: Cramping) Qty: 30 0RF Continued Classic 28 mg iron- 800 mcg Tablet 1 tablet DAILY Date of admission: 12/30/22 23:11 Primary Care Provider: SamDevon Admitting Provider: Mima Pratt Attending physician on admission: Mima Pratt Condition: Stable
[2023-01-01] MEDS: WITCH HAZEL 40 PADS 1 PAD TOPICAL (10:11)
[2023-01-01] MEDS: MULTIVIT/MIN/PREN/FOL AC/IRON TABLET 1 TAB PO (10:11)
[2023-01-01] MEDS: DOCUSATE SODIUM 100 MG CAPSULE PO ×2 (10:11→17:02)
--- NOTE | 2023-01-01 12:28 | WPDANLDPN2 ---
Anes-Prog Note L&D Date/Time: 01/01/23 12:28 Comfortable throughout: labor and delivery Neuraxial method: epidural Epidural/Spinal procedure site: tender Neuro status: Neuro function grossly intact. Cardiovascular status: normal Respiratory status: normal Airway patency: baseline Mental status: baseline Post-Op hydration status: normal Vital Signs: Last Vital Signs Temp 36.6 C 01/01/23 05:15 Pulse 52 L 01/01/23 05:15 Resp 16 01/01/23 05:15 BP 112/82 01/01/23 05:15 Pulse Ox 99 12/31/22 19:10 O2 Del Method Room Air 12/31/22 13:00 Pain score (VAS): 3/10 I/O: Intake & Output 12/31/22 01/01/23 01/01/23 23:59 07:59 15:59 Intake Total 0 Balance 0 Post-procedural complaints: none Patient feedback: Patient satisfied with anesthetic care.
[2023-01-01 21:57] LABS: Rapid Plasma Reagin Non-Reactive (NonReactive)
[2023-01-02 10:20] VITALS: BP 123/87; PULSE 61; RESP 18; TEMP 36.8; O2SAT 100
== END 2023-01-01 20:05 | disposition home or self-care (01) | DRG 560 ==
LOC: ANHLDR 23:14 → ANHOB2 12-31 08:29
PROVIDERS: Admitting Provider Obstetrics & Gynecology; PCP Physician Assistant; Referring Provider Advanced Practice Midwife; Visit Provider Obstetrics & Gynecology
DX: O69.81X0 Labor and delivery complicated by cord around neck, without compression, not applicable or unspecified (principal); Z37.0 Single live birth; O70.0 First degree perineal laceration during delivery; Z3A.40 40 weeks gestation of pregnancy
CPT/HCPCS: 36415; 85014; 85018; 85025; 86592; 86850; 86900; 86901; A9270; J2405; J2590; J2795; J7120

== ENCOUNTER 2023-05-10 16:56 | Emergency (ER) | payer OTHER, SELFPAY ==
[2023-05-10 16:57] VITALS: BP 134/92; PULSE 83; RESP 19; TEMP 36.6; O2SAT 97
--- NOTE | 2023-05-10 17:27 | ED.GENADULT ---
HPI - General Adult General Chief complaint: Back Pain/Injury Stated complaint: back pain Time Seen by Provider: 05/10/23 17:15 Source: patient Mode of arrival: ambulatory Limitations: no limitations History of Present Illness HPI narrative: 23-year-old female with a history of migraine, on control pills, presents to the ER with -- neck and bilateral shoulder pain for the past 2 days from recent heavy lifting at work. -- Nasal congestion and sore throat -- headache -- dizziness no fever or chills no nausea/vomiting Onset (ago): day(s) ( 2 days) Radiation: non-radiation Severity: moderate Quality: aching Pain Consistency: constant Relieving factors: none Exacerbating factors: movement Associated symptoms: denies other symptoms, headaches, malaise and weakness Related Data Allergies Allergy/AdvReac Type Severity Reaction Status Date / Time amoxicillin Allergy Mild Hives Verified 05/10/23 17:34 Review of Systems Review of Systems: All systems reviewed & are unremarkable except as noted in HPI and below Constitutional: Constitutional: Reports as per HPI and Reports no additional constitutional complaints Eyes: Eyes: Reports as per HPI and Reports no additional eye complaints ENT: Reports system reviewed and no additional complaints, except as documented and Reports as per HPI Cardiovascular: Cardiovascular: Reports as per HPI and Reports no additional cardiovascular complaints Respiratory: Respiratory: Reports as per HPI and Reports no additional respiratory complaints Gastrointestinal: Gastrointestinal: Reports as per HPI and Reports no additional gastrointestinal complaints Genitourinary: Genitourinary: Reports no additional female genitourinary complaints Musculoskeletal: Musculoskeletal: Reports no additional musculoskeletal complaints Comments: paravertebral region neck bilateral shoulder pain and tenderness. Normal range of motion. Integumentary/Breasts: Skin/Breast: Reports system reviewed and no additional complaints, except as docu Comments: Bruising of the right arm measuring 3 cm in to 2 cm Neurologic: Reports system reviewed and no additional complaints, except as documented and Reports as per HPI Psychiatric: Psychiatric: Reports no additional psychiatric complaints and Reports as per HPI Endocrine: Endocrine: Reports no additional endocrine complaints and Reports as per HPI Hematologic/Lymphatic: Hematologic/Lymphatic: Reports no additional hematologic/lymphatic complaints and Reports as per HPI Allergic/Immunologic: Allergic/Immunologic: Reports no additional allergic/immunologic complaints and Reports as per HPI [facility] Past Medical History Medical History Migraine No significant medical problems Surgical History Surgical History History of incision and drainage Complex I&D R breast abscess on 12/22/21. No significant past surgical history Family History Family History Mother Adopted Social History Social History Smoking status: Never smoker Tobacco type: e-cigarettes/vaping Second hand tobacco smoke exposure: No Smoking end date: 01/10/19 Additional smoking assessment comments: former smoker, now vapes Alcohol intake: current Drinks per week: 1 Substance use: current Substance use type: marijuana Last use: 11/29/22 Lack of Transportation: No Lack of Food: Never True Current Housing: I Have Housing Concerned About Future Housing: No Difficulty Paying Gas/Electric Bills: No Difficulty Paying for Meds: No Currently Unemployed: No Education: Associate Degree Difficulty w/ Childcare or Family Care: No Living arrangements: with family Gender identity (if verbalized by the patient): Female Sex
[2023-05-10] MEDS: KETOROLAC 30 MG/ML VIAL (*BKC) IM (17:47)
--- NOTE | 2023-05-10 19:07 | PC.NURSE ---
patient report received from MEGAN June. patient awaiting results of respiratory swab.
[2023-05-10 19:15] LABS: SARS-CoV-2 RNA PCR Positive (Negative)
[2023-05-10 19:17] LABS: Influenza A QL RT-PCR Negative (Negative); Influenza B QL RT-PCR Negative (Negative); RSV RNA, RT-PCR Negative (Negative)
--- NOTE | 2023-05-10 19:31 | PC.NURSE ---
Dr. Cline at patient bedside for update on results and plan.
[2023-05-10 20:04] VITALS: BP 122/88; PULSE 94; RESP 18; TEMP 36.8; O2SAT 96
== END 2023-05-10 20:05 | disposition home or self-care (01) ==
PROVIDERS: Emergency Provider Internal Medicine Critical Care Medicine; PCP Physician Assistant
DX: U07.1 COVID-19 (principal)
CPT/HCPCS: 87637; 96372; 99283; J1885

== ENCOUNTER 2023-10-16 12:45 | Emergency (ER) | payer OTHER, SELFPAY ==
[2023-10-16 12:47] VITALS: BP 128/90; PULSE 78; RESP 20; TEMP 36.1; O2SAT 98
--- NOTE | 2023-10-16 12:50 | ED.URI ---
HPI - URI/Sore Throat General Chief Complaint: Upper Respiratory Infection Stated Complaint: sore throat History of Present Illness HPI Narrative: Pt presents with sore throat this morning. Pt says she had trouble swallowing and felt a little SOB. Pt denies fever or vomiting. Pt denies other URI symptoms. Related Data Home Medications Medication Instructions Recorded Confirmed No Home Medications 10/16/23 10/16/23 Allergies Allergy/AdvReac Type Severity Reaction Status Date / Time amoxicillin Allergy Mild Hives Verified 10/16/23 12:56 Review of Systems Review of Systems: All systems reviewed & are unremarkable except as noted in HPI and below PMFSH Past Medical History Medical History Migraine No significant medical problems Surgical History Surgical History History of incision and drainage Complex I&D R breast abscess on 12/22/21. No significant past surgical history Family History Family History Mother Adopted Social History Social History Smoking status: Never smoker Tobacco type: e-cigarettes/vaping Second hand tobacco smoke exposure: No Smoking end date: 01/10/19 Additional smoking assessment comments: former smoker, now vapes Alcohol intake: current Drinks per week: 1 Substance use: current Substance use type: marijuana Last use: 11/29/22 Lack of Transportation: No Lack of Food: Never True Current Housing: I Have Housing Concerned About Future Housing: No Difficulty Paying Gas/Electric Bills: No Difficulty Paying for Meds: No Currently Unemployed: No Education: Associate Degree Difficulty w/ Childcare or Family Care: No Living arrangements: with family Gender identity (if verbalized by the patient): Female Sexual Orientation (if Verbalized by the Patient): Straight or Heterosexual Spiritual care concerns: No Exam Const: General: healthy appearing and no acute distress Nutritional Appearance: well nourished Orientation/consciousness: patient oriented x3 Limitations: no limitations HENMT: Ears: TM's normal bilaterally Mouth: Yes Normal oral and palatal mucosa present Other: mild erythema no exudates to pharynx Eyes: EOM: EOMs intact bilaterally Neck: Neck: normal visual inspection and no lymphadenopathy Resp: Effort & Inspection: normal respiratory effort Auscultation: clear to auscultation bilaterally Cardio: Rate: regular rate Rhythm: regular rhythm GI: GI Palp: Yes Soft to palpation and No Tenderness to palpation present (GI) Auscultation: normal bowel sounds Skin: General skin exam: normal color Rashes: no rashes Wounds: no wounds Neuro: General: patient oriented x3, moves all extremities, no meningeal signs and no focal motor deficits Speech: normal speech Extrem: General: normal to inspection and no clubbing, cyanosis or edema Psych: Mental Status: mental status grossly normal Affect: normal affect Attitude: cooperative Course Vital Signs Vital signs: Vital Signs Temperature 97.0 F L 10/16/23 12:47 Pulse Rate 78 10/16/23 12:47 Respiratory Rate 20 10/16/23 12:47 Blood Pressure 128/90 10/16/23 12:47 Pulse Oximetry 98 10/16/23 12:47 Oxygen Delivery Room Air 10/16/23 12:47 Temperature 97.0 F L 10/16/23 12:47 Pulse Rate 78 10/16/23 12:47 Respiratory Rate 20 10/16/23 12:47 Blood Pressure 128/90 10/16/23 12:47 Pulse Oximetry 98 10/16/23 12:47 Oxygen Delivery Room Air 10/16/23 12:47 MDM - URI/Sore Throat MDM Narrative Medical decision making narrative: Pt has ST and no other significant symptoms, mild erythema but no exudate to throat. will check rapid strep screen. strep screen neg. likely viral. Differential Diagnosis Differential di
[2023-10-16 13:23] LABS: Strep Group A RT-PCR NOT DETECTED (Negative)
== END 2023-10-16 13:32 | disposition home or self-care (01) ==
PROVIDERS: Emergency Provider Emergency Medicine; PCP Physician Assistant
DX: J02.9 Acute pharyngitis, unspecified (principal); F17.290 Nicotine dependence, other tobacco product, uncomplicated
CPT/HCPCS: 87651; 99283

== ENCOUNTER 2023-11-14 20:21 | Emergency (ER) | payer OTHER, SELFPAY ==
--- NOTE | ~2023-11-14 | XR_ITS ---
EXAMINATION: XR wrist RT min 3V DATE: 11/14/2023 20:46 INDICATION: Right wrist pain. TECHNIQUE: 4 views of right wrist were obtained. COMPARISON: None. FINDINGS: Alignment is normal. No fracture. Joint spaces are normal. IMPRESSION: 1. Normal right wrist. Reviewed, dictated and finalized at location A. IMPRESSION: 1. Normal right wrist.
[2023-11-14 20:21] VITALS: BP 133/89; PULSE 93; RESP 20; TEMP 36.6; O2SAT 100
--- NOTE | 2023-11-14 20:22 | ED.UPPEXIN ---
HPI - Extremity Injury (Upper) General Chief Complaint: Extremity Problem,Nontraumatic Stated Complaint: right wrist pain Source: patient Mode of arrival: ambulatory Limitations: no limitations History of Present Illness HPI narrative: patient is a 23-year-old female with right thumb pain and 1st and 2nd digit pain over the past few weeks. complaint: injury to: right and finger ( Thumb) Onset (ago): week(s) (2) Other Extremity Injury: Right: fingers ( pointer and middle finger as well as the thumb) Other injuries: none Place: work Severity: moderate Severity scale (1-10): 5 Relieving factors: immobilization Exacerbating factors: movement of extremity Context: other ( recurrent repetitive movement from work) Associated symptoms: denies other symptoms Related Data Allergies Allergy/AdvReac Type Severity Reaction Status Date / Time amoxicillin Allergy Mild Hives Verified 10/16/23 12:56 Review of Systems Review of Systems: All systems reviewed & are unremarkable except as noted in HPI and below Constitutional: Constitutional: Reports no additional constitutional complaints Eyes: Eyes: Reports no additional eye complaints ENT: Reports system reviewed and no additional complaints, except as documented Cardiovascular: Cardiovascular: Reports no additional cardiovascular complaints Respiratory: Respiratory: Reports no additional respiratory complaints Gastrointestinal: Gastrointestinal: Reports no additional gastrointestinal complaints Genitourinary: Genitourinary: Reports no additional female genitourinary complaints Musculoskeletal: Musculoskeletal: Reports no additional musculoskeletal complaints Integumentary/Breasts: Skin/Breast: Reports system reviewed and no additional complaints, except as docu Neurologic: Reports system reviewed and no additional complaints, except as documented Psychiatric: Psychiatric: Reports no additional psychiatric complaints Endocrine: Endocrine: Reports no additional endocrine complaints Hematologic/Lymphatic: Hematologic/Lymphatic: Reports no additional hematologic/lymphatic complaints Allergic/Immunologic: Allergic/Immunologic: Reports no additional allergic/immunologic complaints [facility] Past Medical History Medical History Migraine No significant medical problems Surgical History Surgical History History of incision and drainage Complex I&D R breast abscess on 12/22/21. No significant past surgical history Family History Family History Mother Adopted Social History Social History Smoking status: Never smoker Tobacco type: e-cigarettes/vaping Second hand tobacco smoke exposure: No Smoking end date: 01/10/19 Additional smoking assessment comments: former smoker, now vapes Alcohol intake: current Drinks per week: 1 Substance use: current Substance use type: marijuana Last use: 11/29/22 Lack of Transportation: No Lack of Food: Never True Current Housing: I Have Housing Concerned About Future Housing: No Difficulty Paying Gas/Electric Bills: No Difficulty Paying for Meds: No Currently Unemployed: No Education: Associate Degree Difficulty w/ Childcare or Family Care: No Living arrangements: with family Gender identity (if verbalized by the patient): Female Sexual Orientation (if Verbalized by the Patient): Straight or Heterosexual Spiritual care concerns: No Exam Const: General: healthy appearing Nutritional Appearance: well nourished Orientation/consciousness: patient oriented x3 HENMT: Head: normal to inspection Ears: external ears normal Face/Nose/Sinus: Normal external nose present Eyes: Conjunctivae: conjunctivae normal Pupils: Equal, round and reactive pupils present EOM: EOMs intact bi
[2023-11-14] MEDS: KETOROLAC (*BKC) 60 MG/2 ML VIAL IM (20:36)
== END 2023-11-14 20:57 | disposition home or self-care (01) ==
LOC: CHSED 21:01
PROVIDERS: Emergency Provider Emergency Medicine; PCP Physician Assistant
DX: M77.8 Other enthesopathies, not elsewhere classified (principal); X50.3XXA Overexertion from repetitive movements, initial encounter; Y99.0 Civilian activity done for income or pay
CPT/HCPCS: 73110; 96372; 99283; J1885; L3908

== ENCOUNTER 2025-02-06 12:06 | Emergency (ER) | payer OTHER, SELFPAY ==
[2025-02-06] VITALS (9 sets, daily range): BP systolic 107–131; BP diastolic 67–85; PULSE 83–103; RESP 12–20; TEMP 36.4; O2SAT 97–100
--- NOTE | 2025-02-06 13:48 | ED.GENADULT ---
HPI - General Adult General Chief complaint: Recheck/Abnormal Lab/Rx Stated complaint: 30 weeks , HTN, right eye blurry Time Seen by Provider: 02/06/25 13:46 Source: patient and family Mode of arrival: ambulatory Limitations: no limitations History of Present Illness HPI narrative: 24 YEARS OLD WHITE FEMALE AT 30 WEEKS COMPLAINING OF HER RIGHT BLURRY VISION, TINGLING NUMBNESS OF THE TIPS OF THE FINGER OF THE HANDS BILATERALLY WITH GENERALIZE HEADACHE AND ELEVATED BLOOD PRESSURE. PATIENT DENIES ANY FEVER, CHILLS, NAUSEA, VOMITING, DIARRHEA, CONSTIPATION, ABDOMINAL PAIN, CHEST PAIN OR SHORTNESS OF BREATH HISTORY OF DEPRESSION NOT ON ANY MEDICATIONS. 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 PATIENT IS 3 PARA 2 0. Related Data Allergies Allergy/AdvReac Type Severity Reaction Status Date / Time amoxicillin Allergy Mild Hives Verified 10/16/23 12:56 Review of Systems Review of Systems: All systems reviewed & are unremarkable except as noted in HPI and below PMFSH Past Medical History Medical History Migraine No significant medical problems Surgical History Surgical History History of incision and drainage Complex I&D R breast abscess on 12/22/21. No significant past surgical history Family History Family History Mother Adopted Social History Social History Smoking status: Never smoker Tobacco type: e-cigarettes/vaping Second hand tobacco smoke exposure: No Smoking end date: 01/10/19 Additional smoking assessment comments: former smoker, now vapes Alcohol intake: current Drinks per week: 1 Substance use: current Substance use type: marijuana Last use: 11/29/22 Lack of Transportation: No Lack of Food: Never True Current Housing: I Have Housing Concerned About Future Housing: No Difficulty Paying Gas/Electric Bills: No Difficulty Paying for Meds: No Currently Unemployed: No Education: Associate Degree Difficulty w/ Childcare or Family Care: No Living arrangements: with family Gender identity (if verbalized by the patient): Female Sexual Orientation (if Verbalized by the Patient): Straight or Heterosexual Spiritual care concerns: No Exam Narrative: GENERAL APPEARANCE: WELL-DEVELOPED, WELL-NOURISHED SKIN: NORMAL COLOR HEAD: NORMOCEPHALIC, NONTRAUMATIC EYES: CLEAR CONJUNCTIVA ENT: OROPHARYNX NORMAL, EARS NORMAL, NOSE NORMAL NECK: SUPPLE, NONTENDER CHEST AND RESPIRATORY: AIRWAY PATENT, NO RESPIRATORY DISTRESS, NO ACCESSORY MUSCLE USE HEART: REGULAR RATE/RHYTHM ABDOMEN: SOFT, NONTENDER, NO ORGANOMEGALY, QUIET BOWEL SOUNDS VASCULAR: NORMAL PERIPHERAL PULSES, NORMAL CAPILLARY REFILL. MUSCULOSKELETAL: NORMAL RANGE OF MOTION, NONTENDER BACK NEUROLOGIC: ALERT AND ORIENTED ?3, VICE PRESIDENT QUALITY ASSURANCE IS NORMAL TESTED, NO GROSS MOTOR DEFICIT Course Vital Signs Vital signs: Vital Signs Temperature 36.4 C 02/06/25 12:08 Pulse Rate 103 H 02/06/25 12:08 Respiratory Rate 18 02/06/25 12:08 Blood Pressure 131/77 02/06/25 12:08 Pulse Oximetry 99 02/06/25 12:08 Oxygen Delivery Room Air 02/06/25 12:08 Temperature 36.4 C 02/06/25 12:08 Pulse Rate 88 02/06/25 12:47 Respiratory Rate 12 02/06/25 12:47 Blood Pressure 107/67 02/06/25 12:47 Pulse Oximetry 98 02/06/25 12:47 Oxygen Delivery Room Air 02/06/25 12:37 Medical Decision Making [facility] Narrative Medical decision making narrative: PATIENT PRESENTS WITH ANXIETY LIKE SYMPTOMS VITAL SIGNS SHOWING BLOOD PRESSURE 131/77 HEART RATE 103 OTHERWISE WITHIN NORMAL LIMIT PHYSICAL EXAMINATION SHOWING ANXIOUS PATIENT WITH INTERMITTENT SIGNING DIFFERENTIAL DIAGNOSIS INCLUDE ANXIETY LIKE SYMPTOMS, DEHYDRATION, ELECTROLYTE IMBALANCE, URINARY TRACT INFECTION BLOOD WORKUP TODAY INCLUDES CBC, CMP, COAGS SHOWED WBC 10.1, HEMOGLOBIN 11.7, SODIUM 133, OTHERWISE WITHIN NORMAL LIMIT URINALYSIS SHOWED EVIDENCE OF INFECTION ON ARRIVAL TO THE ED PATIENT'S SYMPTOM RESOLVED EXCEPT HEADACHE WHICH IS GETTING BETTER BUT STILL THERE. PATIENT RECEIVED 1 G OF TYLENOL WITH SLIGHT IMPROVEMENT MORPHINE 4 MG ZOFRAN 4 MG IV GIVEN. 1 G ROCEPHIN IV GIVEN PRIOR TO DISCHARGE DISCHARGED ON AMOXICILLIN DIAGNOSIS ANXIETY LIKE SYMPTOMS, URINARY TRACT INFECTION, THE PT WAS DISCHARGED TO HOME.THE PT,S CONDITION UPON DISCHARGE WAS FAIR,EDUCATION WAS PROVIDED TO THE PT IN REFERENCE TO THE FINAL IMPRESSION,DISCHARGE STUDY RESULTS,TREATMENT,PROGNOSIS AND NEED FOR FOLLOW UP . Differential Diagnosis Differential Diagnosis: ABOVE Vital Signs Vital Signs: Vital Signs Temperature 36.4 C 02/06/25 12:08 Pulse Rate 103 H 02/06/25 12:08 Respiratory Rate 18 02/06/25 12:08 Blood Pressure 131/77 02/06/25 12:08 Pulse Oximetry 99 02/06/25 12:08 Oxygen Delivery Room Air 02/06/25 12:08 Temperature 36.4 C 02/06/25 12:08 Pulse Rate 88 02/06/25 12:47 Respiratory Rate 12 02/06/25 12:47 Blood Pressure 107/67 02/06/25 12:47 Pulse Oximetry 98 02/06/25 12:47 Oxygen Delivery Room Air 02/06/25 12:37 Lab Data 02/06/25 14:07 02/06/25 14:07 Labs: Lab Results 02/06/25 Range/Units 14:07 WBC 10.1 H (4.5-10.0) K/mm3 RBC 3.99 L (4.2-5.4) M/mm3 Hgb 11.7 L (12.0-15.0) g/dL Hct 34.5 L (37.0-47.0) % MCV 86.5 (80-100) fl MCH 29.3 (26-34) pg MCHC 33.9 (32-36) g/dl RDW 12.6 (11.5-14.5) % Plt Count 236 (150-375) k/mm3 MPV 9.2 (7.4-10.4) fl Immature Gran % (Auto) 0.5 (0-0.5) % Neut % (Auto) 74.7 H (45.5-73.1) % Lymph % (Auto) 18.1 L (18.3-44.2) % [place] % (Auto) 5.4 (2.6-8.5) % Eos % (Auto) 1.1 (0-4.4) % Baso % (Auto) 0.2 (0.2-1.2) % Lymph # (Auto) 1.83 (0.9-3.2) K/mm3 [place] # (Auto) 0.6 (0.1-0.6) K/mm3 Eos # (Auto) 0.1 (0-0.3) K/mm3 Baso # (Auto) 0.0 (0.0-0.1) K/mm3 Abs Immat Gran (auto) 0.05 H (0.00-0.031) K/mm3 Absolute Neuts (auto) 7.6 H (1.3-6.7) K/mm3 Absolute Nucleated RBC 0.000 (0.0-0.012) K/mm3 Nucleated RBC % 0.0 (0.0-0.2) % PT 12.7 (11.1-14.7) Seconds INR 0.9 APTT 24.9 (22.3-36.8) Seconds Sodium 133 L (137-145) mmol/L Potassium 3.7 (3.4-5.0) mmol/L Chloride 104 (98-107) mmol/L Carbon Dioxide 22 (22-30) mmol/L Anion Gap 7 (4-12) mmol/L BUN 5 L D (7-17) mg/dL Creatinine 0.46 L (0.7-1.0) mg/dL Estim Creat Clear Calc 178 ml/min Estimated GFR > 60 (59 - ) Glucose 81 (65-110) mg/dL Calcium 9.0 (8.4-10.2) mg/dL Total Bilirubin 0.4 (0.2-1.3) mg/dL AST 26 (14-36) U/L ALT 12 (6-35) U/L Alkaline Phosphatase 105 (38-126) U/L Total Protein 7.0 (6.3-8.2) g/dL Albumin 3.7 (3.5-5.1) g/dL Urine Color Yellow (Yellow) Urine Appearance Clear (Clear) Urine pH 7.0 (5.0-9.0) Ur Specific [place] 1.004 (1.001-1.035) Urine Protein Negative (Negative) mg/dL Urine Glucose (UA) Negative (Negative) mg/dL Urine Ketones Negative (Negative) mg/dL Ur Blood (Man) Negative (Negative) Urine Nitrate Negative (Negative) Urine Bilirubin Negative (Negative) Urine Urobilinogen 0.2 (<2.0) mg/dL Leukocyte Esterase Rfl 2+ H (Negative) [place]/UL Urine RBC 0-2 (0-2) /hpf Urine WBC 21-50 H (0-3) /hpf Ur Squamous Epith Cells Moderate (Few) /hpf Urine Bacteria 1+ H /hpf Urine Casts 0-2 Critical Care Time Critical Care Time Critical Care Time: No Discharge Plan Discharge Clinical Impression: Anxiety-like symptoms, Urinary tract infection Patient Disposition: Home Condition: Stable Instructions: Antibiotic Form, Anxiety (ED), Urinary Tract Infection in (ED) Patient Language: Frisian Prescriptions: No Action indomethacin 25 mg capsule 25 mg PO BID PRN (Reason: pain) Qty: 20 0RF Rx Instructions: 1-2 caps per dose Follow-up/Referrals: Leann,FABIO Dalton [Primary Care Provider]
[2025-02-06 14:19] LABS: Hematocrit 34.5 % (37.0-47.0); Hemoglobin 11.7 g/dL (12.0-15.0); Immature Granulocyte Percent A 0.5 % (0-0.5); Lymphocytes Absolute Auto 1.83 K/mm3 (0.9-3.2); Mean Corpuscular HGB Conc 33.9 g/dl (32-36); Mean Corpuscular Hemoglobin 29.3 pg (26-34); Mean Corpuscular Volume 86.5 fl (80-100); Nucleated Red Blood Cells Absolute Auto 0.000 K/mm3 (0.0-0.012); Nucleated Red Blood Cells Perc 0.0 % (0.0-0.2); Platelet Count Result 236 k/mm3 (150-375); Red Blood Count 3.99 M/mm3 (4.2-5.4); White Blood Count 10.1 K/mm3 (4.5-10.0)
[2025-02-06 14:31] LABS: Alanine Aminotransferase 12 U/L (6-35); Albumin Level 3.7 g/dL (3.5-5.1); Alkaline Phosphatase 105 U/L (38-126); Anion Gap 7 mmol/L (4-12); Aspartate Amino Transferase 26 U/L (14-36); Bilirubin,Total 0.4 mg/dL (0.2-1.3); Blood Urea Nitrogen 5 mg/dL (7-17); Calcium 9.0 mg/dL (8.4-10.2); Carbon Dioxide 22 mmol/L (22-30); Chloride 104 mmol/L (98-107); Estimated CRCL calculation 178 ml/min; Estimated Glomerular Filt Rate > 60; Glucose 81 mg/dL (65-110); INR 0.9; Partial Thromboplastin Time 24.9 Seconds (22.3-36.8); Potassium 3.7 mmol/L (3.4-5.0); Prothrombin Time 12.7 Seconds (11.1-14.7); Sodium 133 mmol/L (137-145); Total Protein 7.0 g/dL (6.3-8.2)
--- OUTSIDE RECORDS SUMMARY | 2025-02-06 14:35 | XMS_ITS | Data Portability ---
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 Discussed plan. [email or web address] Not available 01/15/2025 14:38:54 01/22/2025 01/22/2025 Patient is _28__weeks . Discussed plan. [email or web address] Not available 01/22/2025 14:22:32 Plan of Treatment Reminders Order Date Submit Date Provider Last Modified By Organization Details Last Modified Time Details Appointments U/S OB GROWTH 2024 02:00P M ULTRASOUND Not available Not available Not available OB ROUTINE 2024 02:30P M Mima PRATT MD Not available Not available Not available Lab drug screen, urine 2024 [id number] [email or web address] [facility], [address], [place], [address], 01/16/2025 08:34:41 Referral None recorde d. Procedures None recorde d. Surgeries None recorde d. Imaging US, obstetr ic, limited 2024 [id number] [email or web address] [address], [address], [place], [address], 02/05/2025 22:30:39 US, obstetr ic, follow- up 2024 [id number] [email or web address] [facility], [address], [address], [place], [address], 01/22/2025 18:32:28 Medication Orders None recorde d. Patient TargetsNo targets recorded. Patient InstructionsNo instructions recorded. Reason for Referral None Reported. Results Created Date Observation Date Name Description Value Unit Range Abnormal Flag Note LastModifiedBy Organization Detail LastModifiedTime 01/16/2001/15/2025 HEMAT OCRIT (HCT) HCT 36.6 % (based on docume nted legal sex) 34.0-4 5.0 Not Available [facility] (Lab) [address], [place], [address], 01/16/2025 12:37:01 01/16/20 25 01/15/2025 HEMOG LOBIN (HGB) HGB 12.1 g/dL (based on docume nted legal sex) 11.6-1 5.4 Not Available [facility] (Lab) [address], [place], [address], 01/16/2025 12:37:01 01/16/20 25 01/15/2025 GTT - GESTA SYLVIA Joao Kirby, ACOG OB glucose, 1 hour screen 93 mg/dL 70-135 Not Available [facility] (Lab) [address] [place], [address], 01/16/2025 12:37:02 01/16/2001/15/2025 HIV 1/2 ANTIG EN/AN TIBOD Y, REFLE X CONFI RMATI ON HIV antigen/anti body Nonrea ctive nonrea ctive HIV-1 antig en and HIV-1 /HIV- 2 antib odies were not detec julissa. No labor atory evide nce of HIV infec tion. Not Available [facility] (Lab) [address], [place], [address], 01/16/2025 12:37:02 01/16/2001/15/2025 RPR SCREE N, REFLE X TITER /CONF IRMAT ION RPR qualitative Nonrea ctive nonrea ctive Not Available [facility] (Lab) [address], [place], [address], 01/16/2025 12:37:02 01/23/20 25 01/22/2025 US, obste tric, follo w-up No observ ation record ed. [email or web address] [facility] [address], [place], [address], 01/22/2025 18:26:35 01/23/20 25 01/22/2025 US, obste tric, follo w-up No observ ation record ed. Laura [address], [place], [address], 01/23/2025 17:28:20 02/06/20 25 02/05/2025 US, obste tric, limit ed No observ ation [facility] ed. [email or web address] [address], [place], [address], 02/05/2025 18:03:16 02/06/20 25 02/05/2025 US, obste tric, limit ed No observ ation record ed. [email or web address] Laura [address], [place], [address], 02/05/2025 21:08:22 Result Notes None recorded. Problems Name Problem SNOMED Code Status Onset Date Resolution Date Notes Provider Name and Address Organization Details Recorded Time Nausea 396576028 Completed [facility] 3 15:53:32 22636629 Completed 201902/27/2020 [facility] 5 12:15:09 Chlamydial infection 312173747 Completed 2022 ARCHIE neg 11/28 [facility] 3 15:53:32 80160629 Completed 202201/02/2023 [facility] 5 12:15:09 83009615 Active 2024 [facility] 5 12:15:09 Problem Notes None recorded. Procedures Surgical History Date Name Laterality Status Provider Name and Address Organization Details Recorded Time 3 Date of Last Pap Smear completed Jojo Sidhu [facility] 06/07/2022 16:21:28 2 IUD Removal completed Erica Benz [facility]- [address], [place], [address], [facility] 12/07/2021 15:13:12 0 IUD Insertion completed To Jesus CNM [address], [place], [address], [facility] 02/27/2020 12:14:04 0 Breast Surgery completed Jojo Sidhu [facility] 06/07/2022 16:22:43 Imaging Results None recorded. Procedure Notes None recorded. Medical Equipment None Reported. Allergies Allergen ID Allergen Name Allergen Category Reaction Reaction Severity Criticality Documentation Date Start Date Code Code System Note Provider Name and Address Organization Details Recorded Time 1604 amoxicill in medicatio n hives Not available Not available 10/25/2019 723 RxNorm [facility] 0 10:51:07 Medications Name Sig Start Date Stop Date Status Note LastModified by Organization Details LastModified Time Mirena 21 mcg/24 hr (up to 8 years) 52 mg intrauter ine device Take by intraute rine route. 12/14 completed mirena IUD inserted 02/27/20 20 and will 02/27/20 25 Not Available Not Available Not Available promethaz ine-DM 6.25 mg-15 mg/5 mL oral syrup TAKE 5ML BY MOUTH EVERY 4 TO 6 HOURS NEEDED FOR COUGH 06/07 completed Not Available Not Available Not Available Lidocaine Viscous 2 % mucosal solution GARGLE AND SPIT 5 ML BY MOUTH TO AFFECTED MUCOSAL AREA FOUR TIMES DAILY NEEDED FOR PAIN 06/07 completed Not Available Not Available Not Available citalopra m 10 mg tablet TAKE 1 TABLET BY MOUTH EVERY DAY 08/15 completed Not Available Not Available Not Available hydrocodo ne 5 mg-acetam inophen 325 mg tablet 06/07 completed Not Available Not Available Not Available metronida zole 0.75 % (37.5 mg/5 gram) vaginal gel INSERT 1 APPLICAT ORFUL VAGINALL Y ONCE DAILY FOR 5 DAYS 04/01 completed Not Available Not Available Not Available ondansetr on HCl 4 mg tablet TAKE 1 TABLET BY MOUTH EVERY 4 TO 6 HOURS NEEDED 11/11 completed Not Available Not Available Not Available metronida zole 500 mg tablet TAKE 1 TABLET BY MOUTH TWICE DAILY DIRECTED FOR 7 DAYS 08/17 completed Not Available Not Available Not Available sulfameth oxazole 800 mg-trimet hoprim 160 mg tablet Take 1 tablet every 12 hours by oral route for 10 days. 06/07 completed Not Available Not Available Not Available tramadol 50 mg tablet TAKE 1 TABLET BY MOUTH EVERY 6 HOURS NEEDED 06/07 completed Not Available Not Available Not Available ondansetr on 8 mg disintegr ating tablet PLACE 1 TABLET BY TRANSLIN GUAL ROUTE TWICE A DAY 01/22 completed Not Available Not Available Not Available citalopra m 20 mg tablet Take 1 tablet every day by oral route. 03/31 completed Not Available Not Available Not Available ciproflox acin 0.3 % eye drops 08/17 completed Not Available Not Available Not Available buspirone 10 mg tablet TAKE 1 TABLET BY MOUTH TWICE DAILY DIRECTED 06/18 completed Not Available Not Available Not Available polymyxin B sulfate 10,000 unit-trim ethoprim 1 mg/mL eye drops 12/13 completed Not Available Not Available Not Available indometha enrike 25 mg capsule TAKE 1 TO 2 CAPSULES BY MOUTH TWICE DAILY NEEDED FOR PAIN 09/10 completed Not Available Not Available Not Available levofloxa enrike 500 mg tablet Take 1 tablet every 24 hours by oral route for 14 days. 11/20 completed Not Available Not Available Not Available ondansetr on 4 mg disintegr ating tablet 06/07 completed Not Available Not Available Not Available azithromy enrike 500 mg tablet TAKE 1 TABLET BY MOUTH ONCE DAILY FOR 3 DAYS 08/15 completed Not Available Not Available Not Available escitalop gustavo 10 mg tablet TAKE 1 TABLET BY MOUTH ONCE DAILY FOR 90 DAYS 11/20 completed Not Available Not Available Not Available cyclobenz aprine 5 mg tablet TAKE 1 TABLET 3 TIMES A DAY BY ORAL ROUTE NEEDED 12/13 completed Not Available Not Available Not Available nitrofura ntoin monohydra te/macroc rystals 100 mg capsule TAKE 1 CAPSULE BY MOUTH TWICE DAILY FOR 5 DAYS 10/25 completed Not Available Not Available Not Available Tylenol active Not Available Not Avail able Not Available active Not Available Not Avai lable Not Available Slynd 4 mg (28) tablet TAKE 1 TABLET BY MOUTH EVERY DAY 08/15 completed Not Available Not Available Not Available Vitals Date Recorded Body weight Systolic And Diastolic Provider Name and Address Organization Details Last Updated DateTime 01/15/2025 63655.77837 g 123/79 mm[Hg] Carina [facility] 01/15/2025 14:25:16 Date Recorded Body weight Systolic And Diastolic Provider Name and Address Organization Details Last Updated DateTime 01/22/2025 35195.64134 g 112/76 mm[Hg] Carina [facility] 01/22/2025 14:14:21 Date Recorded Body weight Body mass index (BMI) Body height Systolic And Diastolic Provider Name and Address Organization Details Last Updated DateTime 02/05/2025 55380.843 48 g 33.4 kg/m2 166.37 cm 105/71 mm[Hg] Soraya Palm [facility] 02/05/2025 15:30:07 Social History Question Answer Notes LastModified by Organizat ion Details LastModified Time Tobacco Smoking Status Former Smoker [facility] 06/18/2021 10:11:12 Do You Have An Advance Directive? No Information not available 02/02/2021 If You Are , What Was Your Level Of Alcohol Consumption Prior To ? Occasional [email or web address] Information not available 06/07/2022 Are You Blind Or Do You Have Difficulty Seeing? No [email or web address] Information not available 11/20/2020 What Is Your Level Of Caffeine Consumption? Occasional [email or web address] Information not available 06/07/2022 In The 14 Days Before Symptom Onset, Have You Had Close Contact With A Laboratory-confir med COVID-19 While That Case Was Ill? No [email or web address] Information not available 02/02/2021 In The 14 Days Before Symptom Onset, Have You Had Close Contact With A Person Who Is Under Investigation For COVID-19 While That Person Was Ill? No [email or web address] Information not available 02/02/2021 Have You Been To An Area Known To Be High Risk For COVID-19? No [email or web address] Information not available 02/02/2021 Are You Deaf Or Do You Have Serious Difficulty Hearing? No Information not available 11/20/2020 What Type Of Diet Are You Following? REGULAR [email or web address] Information not available 11/20/2020 What Is The Highest Grade Or Level Of School You Have Completed Or The Highest Degree You Have Received? [id number] [email or web address] Information not available 02/02/2021 Are There Any Guns Present In Your Home? No [email or web address] Information not available 02/02/2021 What Was The Date Of Your Most Recent Tobacco Screening? 02/24/2023 [email or web address] Information not available 02/24/2023 Do You Use Your Seat Belt Or Car Seat Routinely? Yes [email or web address] Information not available 02/02/2021 Do You Have Smoke And Carbon Monoxide Detectors In Your Home? Yes [email or web address] Information not available 02/02/2021 How Much Tobacco Do You Smoke? No [email or web address] Information not available 11/22/2019 Do You Use Sunscreen Routinely? No [email or web address] Information not available 02/02/2021 Have You Used IV Drugs? No [email or web address] Information not available 02/02/2021 Do You Have Difficulty Walking Or Climbing Stairs? No [email or web address] Information not available 06/18/2021 Sex: Unknown Functional Status Question Answer Note LastModified by Organizat ion Details LastModified Time Do you use any illicit or recreational drugs? No Information not available 02/02/2021 What is your level of alcohol consumption? None [email or web address] Information not available 06/07/2022 Do you or have you ever used smokeless tobacco? Never used smokeless tobacco Information not available 06/18/2021 Are you able to walk independently without assistance or assistive devices? YESWOREST [email or web address] Information not available 11/20/2020 Are you able to care for yourself independently? 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 No Information not available 06/18/2021 Do you or have you ever used e-cigarettes or vape? Former user of electronic cigarettes [email or web address] Information not available 06/18/2021 What is your exercise level? Occasional [email or web address] Information not available 11/22/2019 Mental Status Question Answer Note LastModified by Organization D etails LastModified Time Do you feel stressed (tense, restless, nervous, or anxious, or unable to sleep at night)? [id number] [email or web address] Information not available 02/02/2021 Family History Nothing Reported. Medical History Condition Response Allergies (Food, seasonal, environmental ) N Other N Breast Cancer N Drug/Latex Allergies/Reactions N Blood Transfusion N Dermatologic Disorders N Lung Disease N Defects or Inherited Disease N Breast Problem Y Gestational Diabetes N Hematologic disorders N Anesthesia Complications N History of STI N Deep Vein Thrombosis N Polycystic ovary syndrome N Anxiety Disorder Y Autoimmune disease N Arthritis N Infertility N Polyps N Acid Reflux (GERD) N History of abnormal pap N Cancer N Stroke N Varicosities N Neurologic/Epilepsy N Endometriosis N High Cholesterol N Headaches N Fibromyalgia N Kidney Disease N Heart Problems N Kidney or Bladder Problems N Thyroid Problems N GI Problems N Eating Disorder N Anemia N Art (IVF or FET) N Psychiatric Illness N Ovarian Cancer N Diabetes N Pulmonary (TB, Asthma) N Hepatitis/Liver Disease N No Past Medical History N Eczema N Urinary Tract Infection N Abuse/Domestic Violence N Asthma N Trauma/Violence N Depression/ depression Y Heart Disease N Pre-Eclampsia N Hypertension N Osteoporosis N Thrombophilias N Gynecological History Statement/Question Response Flow Heavy Date of LMP Was last menstrual period normal Y STIs/STDs Y HPV Vaccine N Current Control Method Are cycles usually normal N Sexually Active? Y Menses Monthly Y Age of first menstrual cycle 8 Date of Last Pap Smear 06/07/2022 Sexual Problems? Y Desired Control Method LMP Unknown Obstetrics History GPAL:G 3 P 2 0 0 2 Type Value Full Term 2 Living 2 Total 3 Past Encounters Encounter ID Performer Location Encounter Start Date Encounter Closed Date Diagnosis/Indication Diagnosis SNOMED-CT Code Diagnosis ICD10 Code Diagnosis IMO Codes Diagnosis Note [id number] Huy Pratt MD [facility] [address] [address] 10/25/2019 10:46:12 10/25/2019 11:52:03 screening 342697657 Z36.0 Routine an tenatal care 950647879 Z34.03 [id number] Huy Pratt MD [facility] [address] [place] [address] 10/29/2019 11:20:35 10/29/2019 13:16:23 screening for malformation 908509078 Z36.3 [id number] Huy Pratt MD [facility] [address] [place] [address] 11/22/2019 11:17:19 11/22/2019 12:32:18 screening 377420564 Z36.2 [id number] To Jesus [facility] [address] [place] [address] 11/22/2019 11:17:39 11/22/2019 13:11:33 Routine care 930214332 Z34.93 [id number] Melia Buck [facility] [address] [place] [address] 12/05/2019 13:46:13 12/05/2019 15:05:54 Routine care 219135889 Z34.93 [id number] To Jesus [facility] [address],[place] [address] 12/10/2019 18:17:51 12/10/2019 19:34:19 Routine care 569609183 Z34.93 [id number] Melia Buck [facility] [address],[place] [address] 12/18/2019 15:12:24 12/18/2019 16:16:10 Routine care 268303734 Z34.93 [id number] Huy Pratt MD [facility] [address],[place] [address] 12/25/2019 14:43:52 12/25/2019 15:07:08 Routine care 307636328 Z34.03 [id number] To Jesus [facility] [address],[place] [address] 02/27/2020 10:05:35 02/27/2020 13:54:37 Vaginitis 42558879 N76.0 Insertion of intrauterine contraceptive device 98833442 Z30.430 [id number] To [facility] [address],[place] [address] 04/01/2020 11:30:06 04/01/2020 12:10:45 IUD check 807285982 Z30.431 Venereal d isease screening 613551788 Z11.3 Urethral diverticulum 90 852910 N36.1 [id number] To [facility] [address],[place] [address] 11/20/2020 10:37:27 11/20/2020 12:05:08 IUD check 090650176 Z30.431 Urethral diverticulum 90 186602 N36.1 will f/u with office and get records [id number] Huy Pratt MD [facility] [address],[place] [address] 01/28/2021 14:20:16 01/28/2021 15:05:23 Pain in pelvis 56641894 R10.2 [id number] [facility] [address],[place] [address] 02/02/2021 10:02:09 02/02/2021 11:07:05 Cyst of ovary 81576800 N83.209 resolving monitor sxs call if happens again, consider ocp [id number] To [facility] [address],[place] [address] 06/18/2021 10:10:47 06/18/2021 11:50:29 Pain in pelvis 63976638 R10.2 us at [place] today [id number] Huy Pratt MD [facility] [address],[place] [address] 07/23/2021 09:45:17 07/23/2021 10:49:15 Cyst of left ovary 9140908579 5954109 N83.202 R10.[id number] [address],[place] [address] 12/07/2021 14:52:26 12/07/2021 15:47:16 Removal of intrauterine device 28732936 Z30.432 It was explained that she may have bleeding or spotting after the removal of the device today as well. If cannot see the strings of this device we will need to get an US image to make that the device is still in place and not in an unobtainab le position. She expressed understand ing of all the above instructio ns. [id number] SATHYA Montilla [facility] [address],[place] [address] 12/14/2021 09:35:39 12/14/2021 11:07:04 Breast lump 00616208 N63.0 Furuncle of breast 43855 000 N61.1 We agreed to antibiotic course for likely furuncle of right breastRx sentBreast u/s order given to patient, need to determine furuncle vs lesion/mas sShe will call to schedule thisRTC in 2 weeks for repeat breast examED precaution s given (fever, flu-like symptoms, signs of infection, worsening symptoms, etc)Risk and benefit of medication discussed with patient Time spent in visit is a total of 20 mins with at least 50% of visit consisting of counseling and review of plan of care. [id number] Huy Pratt MD [facility] [address],[place] [address] 05/05/2022 16:48:06 05/05/2022 17:32:49 Uncertain viability of 334048984 O36.80X0 Z3A.01 [id number] Huy Pratt MD [facility] [address],[place] [address] 06/07/2022 15:20:02 06/07/2022 16:08:41 [id number] [place]DA [place] [address] [address] 06/07/2022 15:20:52 06/07/2022 16:51:54 Amenorrhea 99103020 N91.2 Gynecologi c examination 32672113 Z01.419 Z11.3 Z11.8 test positive 178466105 Z32.01 Risk factors addressed: Tobacco Cessation, Safe Sexual Practices, environmen viv, work hazards, travel restrictio ns, seat belt use.Eat a health well balanced diet, avoid alcohol, tobacco, and street drugs.Enga ge in daily low impact exercise, avoid temperatur e extremes, and cat, rodent, and bird feces.Avoi d travel to areas where zika virus is a concern.Of fered cf/sma/nip t. Desires at 12 weeks. Handouts given and discussed with patient.Ch ildbirth classes recommende d.New OB sheet given.If previous , counseling .Pt verbalizes that she understand s the importance of above instructio ns.All questions were answered.P atient reminded to have annual well woman examinatio n and address preventati [facility] . [id number] Huy Pratt MD [facility] [address],[place] [address] 06/22/2022 14:51:37 06/22/2022 15:19:10 screening 567902743 Z36.82 [id number] Huy Pratt MD [facility] [address],[place] [address] 06/22/2022 14:52:16 06/23/2022 10:47:06 Routine care 414041419 Z34.03 [id number] Huy Pratt MD [facility] [address],[place] [address] 07/20/2022 15:10:40 07/20/2022 15:59:34 Venereal disease screening 580562169 Z11.3 Nausea and vomiting 1693 2000 R11.2 Routine an tenatal care 313253627 Z34.03 [id number] Huy Pratt MD [facility] [address],[place] [address] 08/17/2022 16:52:44 08/17/2022 18:25:40 screening for malformation 972427745 Z36.3 [id number] To [facility] [address],[place] [address] 08/17/2022 16:52:59 08/17/2022 23:16:35 Routine care 920931547 Z34.93 [id number] To [facility] [address],[place] [address] 09/16/2022 16:14:44 09/16/2022 17:21:14 Routine care 968363509 Z34.93 [id number] To [facility] [address],[place] [address] 10/07/2022 14:10:03 10/07/2022 14:36:57 Routine care 897830918 Z34.93 [id number] Lashell Moise MD [facility] [address],[place] [address] 10/28/2022 15:15:14 10/28/2022 15:50:46 Routine care 067296617 Z34.83 [id number] To Jesus CNM [facility] [address],[place] [address] 11/11/2022 10:30:48 11/11/2022 11:36:42 Routine care 726382102 Z34.93 [id number] MD Adriana Nichols [address],[place] [address] 11/24/2022 11:16:18 11/24/2022 12:12:45 Uterine size for dates discrepancy 627338149 O26.843 O36.5930 Z3A.35 [id number] MD Adriana Nichols [address],[place] [address] 11/24/2022 11:16:35 11/24/2022 12:52:22 Routine care 686604472 Z34.03 [id number] JULIA TAN MD [facility] [address],[place] [address] 12/13/2022 14:44:10 12/13/2022 15:32:30 Routine care 244382163 Z34.93 [id number] [facility] [address],[place] [address] 12/23/2022 14:30:23 12/23/2022 15:05:26 Routine care 317588764 Z34.93 [id number] Huy Pratt MD [facility] [address],[place] [address] 12/30/2022 15:37:47 12/30/2022 16:54:56 Post-term 27684085 O48.0 [id number] MD Adriana Nichols [address] [place] [address] 12/30/2022 15:38:20 12/30/2022 16:17:08 Post-term 83540747 O48.0 Z3A.40 [id number] To Jesus CNM [facility] [address],[place] [address] 12/30/2022 15:38:40 12/30/2022 17:11:27 Routine care 655702753 Z34.93 [id number] To [facility] [address],[place] [address] 02/24/2023 14:23:38 02/24/2023 14:58:44 care 550888719 Z39.2 start slynd, se risks and benefits, f/u med check Anxiety 27963259 F41.9 if any suicidal thoughts to ED, se risks and benefits, f/u med check 4 weeks [id number] To [facility] [address],[place] [address] 03/31/2023 14:05:19 03/31/2023 14:12:56 Contraception care management 269062603 Z30.9 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 Exam today within normal limits.2. Ultrasound today confirms GA and viability. EDC . GC/Clamydi a testing done: will f/u as indicated. 4. ACOG guidelines and plan of care for reviewed with patient. All questions answered.5 . Return to office at 12 weeks for new OB visit6. Will need new OB labs at next visit.7. Genetic screening: desires. screening 2437 92047 Z36.89 Genetic in vestigation procedure 31128630 Z31.430 [id number] MD Adriana RUSSELL [address] [address] 10/01/2024 11:52:23 10/01/2024 12:28:00 screening 972660241 Z36.82 Z3A.12 [id number] MD Adriana RUSSELL [address],[place] [address] 10/25/2024 12:01:04 10/25/2024 12:45:03 care status 393433430 Z34.82 26442972 [id number] MD Adriana RUSSELL [address],[place] [address] 11/22/2024 10:49:13 11/22/2024 12:09:51 Urinary system finding 335116202 R39.9 7702058 Gestation period, 19 weeks 83684632 Z3A.19 7406403 [id number] JULIA TAN MD [facility] [address],[place] [address] 12/05/2024 11:33:02 12/05/2024 12:41:14 Screening status 407933813 Z36.3 Z3A.21 4886022714 [id number] [facility] [address] [place] [address] 01/15/2025 14:14:05 01/15/2025 14:55:03 Gestation period, 27 weeks [id number] Z3A.27 [id number] cont pnv [id number] Huy Pratt MD [facility] [address] [place] [address] 01/22/2025 13:36:37 01/22/2025 14:21:06 Excessive growth affecting management of mother [id number] O36.63X0 Z3A.28 [id number] [facility] [address] [place] [address] 01/22/2025 13:36:49 01/22/2025 14:24:26 Gestation period, 28 weeks [id number] Z3A.28 [id number] cont pnv [id number] Huy Pratt MD [facility] [address] [address] 02/05/2025 14:34:54 02/05/2025 15:28:08 Polyhydramnios [id number] O40.3XX0 Z3A.30 [id number] JULIA TAN MD [facility] [address] [address] 02/05/2025 14:35:23 02/05/2025 15:43:53 Large for gestation age fetus [id number] O36.60X0 [id number] - EFW 91% at 28 weeks, repeat at 32 weeks- FABIENNE wnl at 30 weeks- passed GCT Gestation period, 30 weeks [id number] Z3A.30 [id number] - continue [facility] Health Concerns Section Related Observation LastModified by Organization Detai ls LastModified Time None Recorded Concern Status LastModified by Organization Details LastModified Time None Recorded Advance Directives Directive N: Payers Insurance Date Sequence Insurance Name Policy Number Policy Romero Covered Member ID Romero Member ID Guarantor Name 02/04/2025 1 [facility] (MEDICAID HMO) Kali Alfaro [id number] Kali Alfaro 02/04/2025 1 [facility] (MEDICAID HMO) [id number] Kali Alfaro [id number] Kali Alfaro Notes Date Note Type Note Provider Name and Address Organization Details Recorded Time 01/15/2025 text/html Generic HPI TemplateReported by Patient Carina sawyer, [facility] 01/15/2025 18:08:13 01/22/2025 text/html Generic HPI TemplateReported by Patient To Jesus CNM [address], [place], [address], [facility] 01/22/2025 14:22:54 02/05/2025 text/html Generic HPI TemplateReported by Patient JULIA TAN MD [address], [place], [address], [facility] 02/05/2025 15:42:08 OBGyn Episode Ob Episode Information Episode Created Date Number of Fetuses Patient Bloodtype Patient rh Status Prepregnancy Weight lbs Domestic Partner Domestic Partner Phone Father Name Passenger Interline Clerk Status 10/25/19 20 1 O Positive 167 CLOSED Fetus Data First Name Last Name Admitted to NICU Weight (g) Sex Living Outcome Pediatric Complications Fetus ID Race Codes Race Delivery Type 3316.89 15 F true Full Term [id number] Vaginal Delivery Gallito Calculation Initial Gallito Date Initial Exam Date Initial Exam Provider Initial Ultrasound Date Last Menstrual Period Date Ultra Sound Weeks Gestation 01/12/2020 10/25/2019 05/20/2019 04/29/2019 6 Eighteen To Twenty Week Gallito Update Ultra Sound Date Fundal Height At Umbil Quickening Date Ultra Sound Latest Weeks Gestation Final Gallito Confirmed By Final Gallito Confirmed Date Final Gallito Date Ultra Sound Latest Days Gestation 0 [email or web address] 10/25/2019 01/12/20 20 0 Pre-sixto Flowsheet Flowsheet Date 10/25/2019 Santos Score Blood Edema Fundus Height Fundus Units Glucose Ketones Leukocytes Nitrite Labor Signs Protein Cervic Dilation Cervic Effacement Cervic Station 27 trace Type Weight in lbs Pre/Post Dialysis Refused Weight 184.493835496082 BP Diastolic BP Location Tested BP Systolic BP Type 75 121 Fetus Heart Rate Present A 140 Fetus Movement A Yes Comments this patient is a 19-year-ol d 1 at 25 weeks gestation who presents for initial care in this office. She has had care elsewhere. Has no worrisome medical or surgical histories. She has no obstetric history. To get anatomy ultrasound soon as possible. Flowsheet Date 10/29/2019 Santos Score Blood Edema Fundus Height Fundus Units Glucose Ketones Leukocytes Nitrite Labor Signs Protein Cervic Dilation Cervic Effacement Cervic Station Type Weight in lbs Pre/Post Dialysis Refused BP Diastolic BP Location Tested BP Systolic BP Type Fetus Heart Rate Present Fetus Movement Comments Flowsheet Date 11/22/2019 Santos Score Blood Edema Fundus Height Fundus Units Glucose Ketones Leukocytes Nitrite Labor Signs Protein Cervic Dilation Cervic Effacement Cervic Station Type Weight in lbs Pre/Post Dialysis Refused BP Diastolic BP Location Tested BP Systolic BP Type Fetus Heart Rate Present Fetus Movement Comments Flowsheet Date 11/22/2019 Santos Score Blood Edema Fundus Height Fundus Units Glucose Ketones Leukocytes Nitrite Labor Signs Protein Cervic Dilation Cervic Effacement Cervic Station neg trace trace Type Weight in lbs Pre/Post Dialysis Refused Weight 186.916140691134 BP Diastolic BP Location Tested BP Systolic BP Type 73 119 Fetus Heart Rate Present Fetus Movement A Yes Comments patient is having hand pain at night, contractions, discharge, swelling and nausea , anatomy complete, efw64% Flowsheet Date 12/05/2019 Santos Score Blood Edema Fundus Height Fundus Units Glucose Ketones Leukocytes Nitrite Labor Signs Protein Cervic Dilation Cervic Effacement Cervic Station 36 trace Type Weight in lbs Pre/Post Dialysis Refused Weight 188.311291195342 BP Diastolic BP Location Tested BP Systolic BP Type 76 L arm 116 sitting Fetus Heart Rate Present A 142 Fetus Movement A Yes Comments Fever on Monday of 101. Did covid test yesterday and was negative. Pt is having a girl Lesley. Will call to schedule pre admit today. Flowsheet Date 12/10/2019 Santos Score Blood Edema Fundus Height Fundus Units Glucose Ketones Leukocytes Nitrite Labor Signs Protein Cervic Dilation Cervic Effacement Cervic Station neg trace 35 trace Type Weight in lbs Pre/Post Dialysis Refused Weight 191.744968739487 BP Diastolic BP Location Tested BP Systolic BP Type 77 121 Fetus Heart Rate Present A 144 Fetus Movement A Yes Comments patient states that having B H contractions, vaginal and hip pain, discharge, and swelling, gbs done, and labor precautions Flowsheet Date 12/18/2019 Santos Score Blood Edema Fundus Height Fundus Units Glucose Ketones Leukocytes Nitrite Labor Signs Protein Cervic Dilation Cervic Effacement Cervic Station 36 trace 0cm 50% -3 Type Weight in lbs Pre/Post Dialysis Refused Weight 194.437454019826 BP Diastolic BP Location Tested BP Systolic BP Type 83 R arm 142 sitting 79 R arm 125 sitting Fetus Heart Rate Present A 140 Fetus Movement A Yes Comments Initial bp slightly elevated . Repeat normal. No h/a, v/d, or e/p. PIH precautions discussed. Prefers non medicated . FOB involved but they are not currently in a relationship but on good terms. Pre admit scheduled next week. FT/50/-3. Flowsheet Date 12/25/2019 Santos Score Blood Edema Fundus Height Fundus Units Glucose Ketones Leukocytes Nitrite Labor Signs Protein Cervic Dilation Cervic Effacement Cervic Station 37 trace Type Weight in lbs Pre/Post Dialysis Refused Weight 196.317181754141 BP Diastolic BP Location Tested BP Systolic BP Type 81 R arm 125 sitting Fetus Heart Rate Present A 145 Fetus Movement A Yes Comments Flowsheet Date 02/27/2020 Santos Score Blood Edema Fundus Height Fundus Units Glucose Ketones Leukocytes Nitrite Labor Signs Protein Cervic Dilation Cervic Effacement Cervic Station Type Weight in lbs Pre/Post Dialysis Refused Weight 174.85828512955 BP Diastolic BP Location Tested BP Systolic BP Type 74 116 Fetus Heart Rate Present Fetus Movement Comments Menstrual History Last Menstrual Date Menses Monthly On Bcp Conception Prior Menses Frequency Hcg Plus Date Menarche Onset Age 0204/29/2019 Genetic Screening And Infection History Question Response Note Mental Retardation/Autism false Patient's Age Will Be 35 Years Or Older At Estim ated Date of Delivery false Thalassemia (Kosovan, Moroccan, Mediterranean, Or Background): MCV < 80 false Neural Tube Defect (Meningomyelocele, Spina Bifi da, Or Anencephaly) false Congenital Heart Defect false Down Syndrome false Abram-Sachs (eg, Oriental Orthodox, Cajun, Monegasque-Togolese) f alse Monica Disease false Sickle Cell Disease Or Trait () false Hemophilia Or Other Blood Disorders false Muscular Dystrophy false Cystic Fibrosis false [place]'s Chorea false Intellectual Disability/Autism false If Yes, Was Person Tested For Fragile X? false Other Inherited Genetic Or Chromosomal Disorder false Maternal Metabolic Disorder (eg, Type 1 Diabetes , PKU) false Patient Or Baby's Father Had A Child With Defects Not Listed Above false Recurrent Loss, Or A Stillbirth false Medications (including Suppl ements, Vitamins, Herbs, OTC Drugs), Illicit/Recreational Drugs, Alcohol false If Yes, Agent(s) And Strength/Dosage false Any Other Genetic History false Live With Someone With TB Or Exposed To TB false Patient Or Partner Has History Of Genital Herpes false Rash Or Viral Illness Since Last Menstrual Perio d false History Of STD, Gonorrhea, Chlamydia, HPV, Syphi lis false Other Infection History false History of HIV false History of Hepatitis false Prior GBS-infected child false Hemoglobinopathy Or Carrier false Other Structural Defect false Recent Travel History Outside of Country false Delivery Information Delivery Date Delivery Type Labor Anesthesia Weeks Gestation Incision Type Labor Labor Length Hrs Delivered By Post Complications Tubal Sterilization Discharge Date Comments 0 40.5 TO JESUS, CNM +GBS Discharge Information Feeding Method Contraceptive Method Maternal HG B and HCT Levels Ob Episode Information Episode Created Date Number of Fetuses Patient Bloodtype Patient rh Status Prepregnancy Weight lbs Domestic Partner Domestic Partner Phone Father Name Passenger Interline Clerk Status 01/06/20 20 1 DELETED Gallito Calculation Initial Gallito Date Initial Exam Date Initial Exam Provider Initial Ultrasound Date Last Menstrual Period Date Ultra Sound Weeks Gestation 0 Eighteen To Twenty Week Gallito Update Ultra Sound Date Fundal Height At Umbil Quickening Date Ultra Sound Latest Weeks Gestation Final Gallito Confirmed By Final Gallito Confirmed Date Final Gallito Date Ultra Sound Latest Days Gestation 0 0 Menstrual History Last Menstrual Date Menses Monthly On Bcp Conception Prior Menses Frequency Hcg Plus Date Menarche Onset Age Delivery Information Delivery Date Delivery Type Labor Anesthesia Weeks Gestation Incision Type Labor Labor Length Hrs Delivered By Post Complications Tubal Sterilization Discharge Date Comments 0 38 +GBS Discharge Information Feeding Method Contraceptive Method Maternal HG B and HCT Levels Ob Episode Information Episode Created Date Number of Fetuses Patient Bloodtype Patient rh Status Prepregnancy Weight lbs Domestic Partner Domestic Partner Phone Father Name Passenger Interline Clerk Status 06/23/19 23 1 O Positive 142 CLOSED Fetus Data First Name Last Name Admitted to NICU Weight (g) Sex Living Outcome Pediatric Complications Fetus ID Race Codes Race Delivery Type Mino 3315.48 [id number] M true Full Term [email or web address] [id number] Vaginal Delivery Problems Problem Notes Problem Name Start Date End Date Resolution Snomed Code Not e Chlamydial infection 06/07/2022 [id number] 0 ARCHIE neg 11/28 Nausea [id number] Gallito Calculation Initial Gallito Date Initial Exam Date Initial Exam Provider Initial Ultrasound Date Last Menstrual Period Date Ultra Sound Weeks Gestation 12/28/2022 06/22/2022 05/05/2022 6 Eighteen To Twenty Week Gallito Update Ultra Sound Date Fundal Height At Umbil Quickening Date Ultra Sound Latest Weeks Gestation Final Gallito Confirmed By Final Gallito Confirmed Date Final Gallito Date Ultra Sound Latest Days Gestation 0 [email or web address] 06/22/2022 12/29/19 23 0 Pre-sixto Flowsheet Flowsheet Date 06/22/2022 Santos Score Blood Edema Fundus Height Fundus Units Glucose Ketones Leukocytes Nitrite Labor Signs Protein Cervic Dilation Cervic Effacement Cervic Station 13 Type Weight in lbs Pre/Post Dialysis Refused Weight 142.915570708293 BP Diastolic BP Location Tested BP Systolic BP Type 71 R arm 114 sitting Fetus Heart Rate Present A 145 Fetus Movement Comments this patient is a 22-year-ol d 2 para 1001 at 13 weeks gestation who presents for initial care. She has an unremarkable medical, surgical and obstetric history. She has had 1 term vaginal of an average size infant. She is vaccinated for COVID. She was given other vaccine recommendations. She will begin routine care. care was discussed in detail. She is doing genetic screening. Flowsheet Date 07/20/2022 Santos Score Blood Edema Fundus Height Fundus Units Glucose Ketones Leukocytes Nitrite Labor Signs Protein Cervic Dilation Cervic Effacement Cervic Station 17 none trace Type Weight in lbs Pre/Post Dialysis Refused Weight 144.712226559182 BP Diastolic BP Location Tested BP Systolic BP Type 66 R arm 106 sitting Fetus Heart Rate Present A 145 Fetus Movement Comments having some lower back pain Given recommendations, discussed reflux, discussed nausea, meds were prescribed. Flowsheet Date 08/17/2022 Santos Score Blood Edema Fundus Height Fundus Units Glucose Ketones Leukocytes Nitrite Labor Signs Protein Cervic Dilation Cervic Effacement Cervic Station Type Weight in lbs Pre/Post Dialysis Refused BP Diastolic BP Location Tested BP Systolic BP Type Fetus Heart Rate Present Fetus Movement Comments Flowsheet Date 08/17/2022 Santos Score Blood Edema Fundus Height Fundus Units Glucose Ketones Leukocytes Nitrite Labor Signs Protein Cervic Dilation Cervic Effacement Cervic Station neg trace none trace Type Weight in lbs Pre/Post Dialysis Refused Weight 147.566158277382 BP Diastolic BP Location Tested BP Systolic BP Type 68 109 Fetus Heart Rate Present Fetus Movement A Yes Comments PATIENT IS HAVING SOME BACK PAIN, SWELLING, NAUSEA AND VOMITING. reviewed ob precautions, education, anatomy complete, increase hydration, stretch after working f/u 4 weeks Flowsheet Date 09/16/2022 Santos Score Blood Edema Fundus Height Fundus Units Glucose Ketones Leukocytes Nitrite Labor Signs Protein Cervic Dilation Cervic Effacement Cervic Station neg trace 24 none trace Type Weight in lbs Pre/Post Dialysis Refused Weight 153.896949304431 BP Diastolic BP Location Tested BP Systolic BP Type 66 110 Fetus Heart Rate Present A 155 Present Fetus Movement A Yes Comments patient is having some back pain, discharge, swelling, nausea and vomiting. get support belt at next visit, tens unit not helping low back, very tight, will try flexeril, consider starting PT, precautions reviewed f/u 3 weeks gct Flowsheet Date 10/07/2022 Santos Score Blood Edema Fundus Height Fundus Units Glucose Ketones Leukocytes Nitrite Labor Signs Protein Cervic Dilation Cervic Effacement Cervic Station neg trace none trace Type Weight in lbs Pre/Post Dialysis Refused Weight 156.502870655985 BP Diastolic BP Location Tested BP Systolic BP Type 68 109 Fetus Heart Rate Present A 146 Present Fetus Movement A Yes Comments patient is having back pain, swelling, nausea and vomiting. 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 GCT today f/u 2 weeks, precautions reviewed Flowsheet Date 10/28/2022 Santos Score Blood Edema Fundus Height Fundus Units Glucose Ketones Leukocytes Nitrite Labor Signs Protein Cervic Dilation Cervic Effacement Cervic Station neg trace 30 none trace Type Weight in lbs Pre/Post Dialysis Refused Weight 154.595065754136 BP Diastolic BP Location Tested BP Systolic BP Type 67 105 Fetus Heart Rate Present A 130 Fetus Movement A Yes Comments Doing well,, would like a florentino pport belt. GCT wnl, not anemic. Discussed and encouraged Tdap. Flowsheet Date 11/11/2022 Santos Score Blood Edema Fundus Height Fundus Units Glucose Ketones Leukocytes Nitrite Labor Signs Protein Cervic Dilation Cervic Effacement Cervic Station neg trace 30 none trace Type Weight in lbs Pre/Post Dialysis Refused Weight 155.14712798792 BP Diastolic BP Location Tested BP Systolic BP Type 68 105 Fetus Heart Rate Present A 155 Present Fetus Movement A Yes Comments patient is having BH contrac tions, swelling, nausea and vomiting. reviewed precautions, off on jimmie this week, ptl precautions plan gbs next visit, call for preadmit s<d plan us Flowsheet Date 11/24/2022 Santos Score Blood Edema Fundus Height Fundus Units Glucose Ketones Leukocytes Nitrite Labor Signs Protein Cervic Dilation Cervic Effacement Cervic Station Type Weight in lbs Pre/Post Dialysis Refused BP Diastolic BP Location Tested BP Systolic BP Type Fetus Heart Rate Present Fetus Movement Comments Flowsheet Date 11/24/2022 Santos Score Blood Edema Fundus Height Fundus Units Glucose Ketones Leukocytes Nitrite Labor Signs Protein Cervic Dilation Cervic Effacement Cervic Station 34 Type Weight in lbs Pre/Post Dialysis Refused Weight 158.641195779429 BP Diastolic BP Location Tested BP Systolic BP Type 71 R arm 115 sitting Fetus Heart Rate Present A 145 Fetus Movement Comments no complaints, no problems, routine care, normal growth, small but not abnormally small Flowsheet Date 12/13/2022 Santos Score Blood Edema Fundus Height Fundus Units Glucose Ketones Leukocytes Nitrite Labor Signs Protein Cervic Dilation Cervic Effacement Cervic Station none 1cm 50% -2 Type Weight in lbs Pre/Post Dialysis Refused Weight 157.085755405421 BP Diastolic BP Location Tested BP Systolic BP Type 68 110 Fetus Heart Rate Present A 125 Fetus Movement A Yes Comments Doing well. Some back pain, no ctx or LOF. Baby active. GBS collected. Discussed labor precautions. RTC in 1 week Flowsheet Date 12/23/2022 Santos Score Blood Edema Fundus Height Fundus Units Glucose Ketones Leukocytes Nitrite Labor Signs Protein Cervic Dilation Cervic Effacement Cervic Station neg none 37 none trace Type Weight in lbs Pre/Post Dialysis Refused Weight 155.96110381852 BP Diastolic BP Location Tested BP Systolic BP Type 70 117 Fetus Heart Rate Present A 155 Present Fetus Movement A Yes Comments patient is having cramping a nd discharge. cervix 1.5/60/-2 prefers natural labor plan bpp and nst next week precautions reviewed f/u one week Flowsheet Date 12/30/2022 Santos Score Blood Edema Fundus Height Fundus Units Glucose Ketones Leukocytes Nitrite Labor Signs Protein Cervic Dilation Cervic Effacement Cervic Station Type Weight in lbs Pre/Post Dialysis Refused BP Diastolic BP Location Tested BP Systolic BP Type Fetus Heart Rate Present Fetus Movement Comments Flowsheet Date 12/30/2022 Santos Score Blood Edema Fundus Height Fundus Units Glucose Ketones Leukocytes Nitrite Labor Signs Protein Cervic Dilation Cervic Effacement Cervic Station Type Weight in lbs Pre/Post Dialysis Refused BP Diastolic BP Location Tested BP Systolic BP Type Fetus Heart Rate Present Fetus Movement Comments Flowsheet Date 12/30/2022 Santos Score Blood Edema Fundus Height Fundus Units Glucose Ketones Leukocytes Nitrite Labor Signs Protein Cervic Dilation Cervic Effacement Cervic Station neg none none trace 4cm 70% -2 Type Weight in lbs Pre/Post Dialysis Refused Weight 156.487075302124 BP Diastolic BP Location Tested BP Systolic BP Type 76 118 Fetus Heart Rate Present Fetus Movement A Yes Comments patient is having contractio ns, discharge, and nausea. NST R bpp 10/25 desires iol scheduled for tomorrow precautions reviewed Menstrual History Last Menstrual Date Menses Monthly On Bcp Conception Prior Menses Frequency Hcg Plus Date Menarche Onset Age Genetic Screening And Infection History Question Response Note Mental Retardation/Autism false Patient's Age Will Be 35 Years Or Older At Estim ated Date of Delivery false Thalassemia (Kosovan, Moroccan, Mediterranean, Or Background): MCV < 80 false Neural Tube Defect (Meningomyelocele, Spina Bifi da, Or Anencephaly) false Congenital Heart Defect false Down Syndrome false Abram-Sachs (eg, Oriental Orthodox, Cajun, Monegasque-Togolese) f alse Monica Disease false Sickle Cell Disease Or Trait () false Hemophilia Or Other Blood Disorders false Muscular Dystrophy false Cystic Fibrosis false [place]'s Chorea false Intellectual Disability/Autism false If Yes, Was Person Tested For Fragile X? false Other Inherited Genetic Or Chromosomal Disorder false Maternal Metabolic Disorder (eg, Type 1 Diabetes , PKU) false Patient Or Baby's Father Had A Child With Defects Not Listed Above false Recurrent Loss, Or A Stillbirth false Medications (including Suppl ements, Vitamins, Herbs, OTC Drugs), Illicit/Recreational Drugs, Alcohol false If Yes, Agent(s) And Strength/Dosage false Any Other Genetic History false Live With Someone With TB Or Exposed To TB false Patient Or Partner Has History Of Genital Herpes false Rash Or Viral Illness Since Last Menstrual Perio d false History Of STD, Gonorrhea, Chlamydia, HPV, Syphi lis false Other Infection History false History of HIV false History of Hepatitis false Prior GBS-infected child false Hemoglobinopathy Or Carrier false Other Structural Defect false Recent Travel History Outside of Country false Delivery Information Delivery Date Delivery Type Labor Anesthesia Weeks Gestation Incision Type Labor Labor Length Hrs Delivered By Post Complications Tubal Sterilization Discharge Date Comments [facility] idural 40.3 false [place] CNM Chlamydia l infection , Nausea Discharge Information Feeding Method Contraceptive Method Maternal HG B and HCT Levels Ob Episode Information Episode Created Date Number of Fetuses Patient Bloodtype Patient rh Status Prepregnancy Weight lbs Domestic Partner Domestic Partner Phone Father Name Passenger Interline Clerk Status 10/26/19 25 1 O Positive 215 Jasbir sandoval OPEN Fetus Data First Name Last Name Admitted to NICU Weight (g) Sex Living Outcome Pediatric Complications Fetus ID Race Codes Race Delivery Type [id number] Gallito Calculation Initial Gallito Date Initial Exam Date Initial Exam Provider Initial Ultrasound Date Last Menstrual Period Date Ultra Sound Weeks Gestation 04/12/2025 10/25/2024 09/10/2024 9 Eighteen To Twenty Week Gallito Update Ultra Sound Date Fundal Height At Umbil Quickening Date Ultra Sound Latest Weeks Gestation Final Gallito Confirmed By Final Gallito Confirmed Date Final Gallito Date Ultra Sound Latest Days Gestation 0 04/12/19 26 0 Pre- Flowsheet Flowsheet Date 10/25/2024 Santos Score Blood Edema Fundus Height Fundus Units Glucose Ketones Leukocytes Nitrite Labor Signs Protein Cervic Dilation Cervic Effacement Cervic Station Type Weight in lbs Pre/Post Dialysis Refused Weight 203.679779599544 BP Diastolic BP Location Tested BP Systolic BP Type 72 L arm 107 sitting Fetus Heart Rate Present A 145 Fetus Movement A Yes Comments Patient presents to [facility] care. otherwise uncomplicated. No nausea or cramping. NT/NB wnl. Had UTI last week, finishing antibiotics today. No bleeding. RTC 4 weeks for routine care with anatomy US. Flowsheet Date 11/22/2024 Santos Score Blood Edema Fundus Height Fundus Units Glucose Ketones Leukocytes Nitrite Labor Signs Protein Cervic Dilation Cervic Effacement Cervic Station Type Weight in lbs Pre/Post Dialysis Refused Weight 203.724182769278 BP Diastolic BP Location Tested BP Systolic BP Type 77 L arm 117 sitting Fetus Heart Rate Present A 145 Fetus Movement A Yes Comments Doing well, good movem ent. No further UTI symptoms, will send ARCHIE today. Needs to schedule anatomy US. RTC 4 weeks. Flowsheet Date 12/05/2024 Santos Score Blood Edema Fundus Height Fundus Units Glucose Ketones Leukocytes Nitrite Labor Signs Protein Cervic Dilation Cervic Effacement Cervic Station Type Weight in lbs Pre/Post Dialysis Refused BP Diastolic BP Location Tested BP Systolic BP Type Fetus Heart Rate Present Fetus Movement Comments Flowsheet Date 01/15/2025 Santos Score Blood Edema Fundus Height Fundus Units Glucose Ketones Leukocytes Nitrite Labor Signs Protein Cervic Dilation Cervic Effacement Cervic Station Type Weight in lbs Pre/Post Dialysis Refused 204.282716363526 BP Diastolic BP Location Tested BP Systolic BP Type 79 L arm 123 sitting Fetus Heart Rate Present Fetus Movement A Yes Comments +FM doing well GCT today, pr ecautions and education f/u 2 weekswants to try and go without epidural Flowsheet Date 01/22/2025 Santos Score Blood Edema Fundus Height Fundus Units Glucose Ketones Leukocytes Nitrite Labor Signs Protein Cervic Dilation Cervic Effacement Cervic Station Type Weight in lbs Pre/Post Dialysis Refused BP Diastolic BP Location Tested BP Systolic BP Type Fetus Heart Rate Present Fetus Movement Comments Flowsheet Date 01/22/2025 Santos Score Blood Edema Fundus Height Fundus Units Glucose Ketones Leukocytes Nitrite Labor Signs Protein Cervic Dilation Cervic Effacement Cervic Station Type Weight in lbs Pre/Post Dialysis Refused 206.588671723354 BP Diastolic BP Location Tested BP Systolic BP Type 76 L arm 112 sitting Fetus Heart Rate Present Fetus Movement A Yes Comments +FM, mild polyhydramnios, ef w 91% reviewed gct wnl, precautions and education f/u 2 weeks Flowsheet Date 02/05/2025 Santos Score Blood Edema Fundus Height Fundus Units Glucose Ketones Leukocytes Nitrite Labor Signs Protein Cervic Dilation Cervic Effacement Cervic Station Type Weight in lbs Pre/Post Dialysis Refused BP Diastolic BP Location Tested BP Systolic BP Type Fetus Heart Rate Present Fetus Movement Comments Flowsheet Date 02/05/2025 Santos Score Blood Edema Fundus Height Fundus Units Glucose Ketones Leukocytes Nitrite Labor Signs Protein Cervic Dilation Cervic Effacement Cervic Station Type Weight in lbs Pre/Post Dialysis Refused 204.831320940824 BP Diastolic BP Location Tested BP Systolic BP Type 71 L arm 105 sitting Fetus Heart Rate Present A Present Fetus Movement Comments Good movement. No cram ping or bleeding. Had a fall yesterday on back, mild back pain but otherwise no issues. FABIENNE 22.8cm, mild poly resolved. Repeat growth US in 2 weeks. RTC 2 weeks. Menstrual History Last Menstrual Date Menses Monthly On Bcp Conception Prior Menses Frequency Hcg Plus Date Menarche Onset Age Delivery Information Delivery Date Delivery Type Labor Anesthesia Weeks Gestation Incision Type Labor Labor Length Hrs Delivered By Post Complications Tubal Sterilization Discharge Date Comments Discharge Information Feeding Method Contraceptive Method Maternal HG B and HCT Levels
--- OUTSIDE RECORDS SUMMARY | 2025-02-06 14:35 | XMS_ITS | Continuity of Care Document ---
Author Organization [facility] [place] Address [address] [place] [address] Care Team Providers Care Solidworks Drafter Name Role Phone AMILCAR FRENCH Primary Care Provider [phone] Assessment No assessment recorded. Plan of Treatment Reminders Order Date Submit Date Provider Last Modified By Organization Details Last Modified Time Details Appointments U/S OB GROWTH 2024 02:00P M ULTRASOUND Not available Not available Not available OB ROUTINE 2024 02:30P M Mima PRATT MD Not available Not available Not available Lab None recorde d. Referral None recorde d. Procedures None recorde d. Surgeries None recorde d. Imaging None recorde d. Medication Orders None recorde d. Patient TargetsNo targets recorded. Patient InstructionsNo instructions recorded. Reason for Referral None Reported. Results Created Date Observation Date Name Description Value Unit Range Abnormal Flag Note LastModifiedBy Organization Detail LastModifiedTime 10/26/1910/25/2024 CULTU RE: URINE result report SEE RESULT S BELOW Test: Cultu re: Urine Speci men Sourc e: Urine Voide d Speci men Type: Urine Speci men Date: 025 1410 Resul t Date: 2024 0618 Resul t Statu s: Final resul t Abnor mal: No Resul ting Lab: [facility] [address] [address] Tel: CULTU RE ----- ----- ----- --- No growt h in 1 day (dete ction level of 10,00 0 colon ies / ml.) Not Available [facility] (Lab) [address], [place], [address], 10/27/2024 07:21:44 11/23/1911/22/2024 CULTU RE: URINE result report SEE RESULT S BELOW Test: Cultu re: Urine Speci men Sourc e: Urine Voide d Speci men Type: Urine Speci men Date: 1442 Resul t Date: 0605 Resul t Statu s: Final resul t Abnor mal: No Resul ting Lab: [facility] [address] [facility] [address] Tel: CULTU RE ----- ----- ----- --- No growt h in 1 day (dete ction level of 10,00 0 colon ies / ml.) Not Available [facility] (Lab) [address], [place], [address], 11/24/2024 07:08:30 11/23/1911/22/2024 urina lysis , dipst ick Leukocytes - Not Available [facility] [address], [place], [address], 11/22/2024 11:22:28 11/23/19 25 11/22/2024 urina lysis , dipst ick Nitrite - Not Available [facility] [address], [place], [address], 11/22/2024 11:22:28 11/23/1911/22/2024 urina lysis , dipst ick Urobilinogen - Not Available [facility] sushil [address], [place], [address], 11/22/2024 11:22:28 11/23/19 25 11/22/2024 urina lysis , dipst ick Protein trace Not Available [facility] [address], [place], [address], 11/22/2024 11:22:28 11/23/19 25 11/22/2024 urina lysis , dipst ick pH 9 Not Available [facility] [address], [place], [address], 11/22/2024 11:22:28 11/23/19 25 11/22/2024 urina lysis , dipst ick Specific [place] 1.000 [facility] Available [facility] [address], [place], [address], 11/22/2024 11:22:28 11/23/19 25 11/22/2024 urina lysis , dipst ick Ketone - Not Available [place] [address], [place], [address], 11/22/2024 11:22:28 11/23/19 25 11/22/2024 urina lysis , dipst ick Bilirubin - Not Available [facility] [address], [place], [address], 11/22/2024 11:22:28 11/23/19 25 11/22/2024 urina lysis , dipst ick Glucose - Not Available [place] [address], [place], [address], 11/22/2024 11:22:28 11/23/19 25 11/22/2024 urina lysis , dipst ick Appearance clear Not Available [facility] [address], [place], [address], 11/22/2024 11:22:28 11/23/19 25 11/22/2024 urina lysis , dipst ick Color light yellow Not Available [facility] [address], [place], [address], 11/22/2024 11:22:28 01/16/20 25 01/15/2025 HEMAT OCRIT (HCT) HCT 36.6 % (based on docume nted legal sex) 34.0-4 5.0 Not Available [facility] (Lab) [address] [facility], [place], [address], 01/16/2025 12:37:01 01/16/20 25 01/15/2025 HEMOG LOBIN (HGB) HGB 12.1 g/dL (based on docume nted legal sex) 11.6-1 5.4 Not Available [facility] (Lab) [address], [place], [address], 01/16/2025 12:37:01 01/16/2001/15/2025 GTT - GESTA SYLVIA L YULIA Kirby, ACOG OB glucose, 1 hour screen 93 mg/dL 70-135 Not Available [facility] (Lab) [address], [place], [address], 01/16/2025 12:37:02 01/16/20 25 01/15/2025 HIV 1/2 ANTIG EN/AN TIBOD Y, REFLE X CONFI RMATI ON HIV antigen/anti body Nonrea ctive nonrea ctive HIV-1 antig en and HIV-1 /HIV- 2 antib odies were not detec julissa. No labor atory evide nce of HIV infec tion. Not Available [facility] (Lab) [address], [place], [address], 01/16/2025 12:37:02 01/16/2001/15/2025 RPR SCREE N, REFLE X TITER /CONF IRMAT ION RPR qualitative Nonrea ctive nonrea ctive Not Available [facility] (Lab) [address] [place], [address], 01/16/2025 12:37:02 12/06/19 25 12/05/2024 US, obste tric, follo w-up No observ ation record ed. marcus Sanchez [address], [place], [address], 12/05/2024 12:32:44 12/06/19 25 12/05/2024 US, obste tric, 2nd or 3rd trime ster No observ ation record ed. [email or web address] [facility] [address], [place], [address], 12/05/2024 14:25:17 12/06/19 25 12/05/2024 US, obste tric, 2nd or 3rd trime ster No observ ation record ed. [email or web address] Laura [address], [place], [address], 12/24/2024 17:05:43 01/23/20 25 01/22/2025 US, obste tric, follo w-up No observ ation record ed. [email or web address] [place] [address], [place], [address], 01/22/2025 18:26:35 01/23/20 25 01/22/2025 US, obste tric, follo w-up No observ ation record ed. [email or web address] Laura [address], [place], [address], 01/23/2025 17:28:20 02/06/20 25 02/05/2025 US, obste tric, limit ed No observ ation [facility] [address], [place], [address], 02/05/2025 18:03:16 02/06/20 25 02/05/2025 US, obste tric, limit ed No observ ation record ed. [email or web address] [place] [address], [place], [address], 02/05/2025 21:08:22 Result Notes None recorded. Problems Name Problem SNOMED Code Status Onset Date Resolution Date Notes Provider Name and Address Organization Details Recorded Time Nausea [id number] [facility] Priyank Salazar [facility] 3 15:53:32 77666405 Completed 201902/27/2020 [facility] 12:15:09 Chlamydial infection 574419107 Completed 2022 ARCHIE neg 11/28 Priyank Salazar [facility] 3 15:53:32 [id number] Completed 202201/02/2023 Yara Tang [facility] 5 12:15:09 17367572 Active 2024 Yara Tang [facility] 5 12:15:09 Problem Notes None recorded. Procedures Surgical History Date Name Laterality Status Provider Name and Address Organization Details Recorded Time 3 Date of Last Pap Smear completed Jojo Sidhu [facility] 06/07/2022 16:21:28 2 IUD Removal completed Erica Benz KATHIE- [address], [place], [address], [facility] 12/07/2021 15:13:12 0 IUD Insertion completed Anali Jesus CNM [address], [place], [address], [facility] 02/27/2020 12:14:04 0 Breast Surgery completed Jojo Sidhu [facility] 06/07/2022 16:22:43 Imaging Results None recorded. Procedure Notes None recorded. Medical Equipment None Reported. Allergies Allergen ID Allergen Name Allergen Category Reaction Reaction Severity Criticality Documentation Date Start Date Code Code System Note Provider Name and Address Organization Details Recorded Time 1604 amoxicill in medicatio n hives Not available Not available 10/25/2019 723 RxNorm Yara sawyer [facility] 0 10:51:07 Medications Name Sig Start Date Stop Date Status Note LastModified by Organization Details LastModified Time Mirena 21 mcg/24 hr (up to 8 years) 52 mg intrauter ine device Take by intraute rine route. 12/14 completed mirena IUD inserted 02/27/20 and will 02/27/20 Not Available Not Available Not Available promethaz [...] Not Available Vitals Date Recorded Body weight Body mass index (BMI) Body height Systolic And Diastolic Provider Name and Address Organization Details Last Updated DateTime 02/05/2025 67755.843 48 g 33.4 kg/m2 166.37 cm 105/71 mm[Hg] Soraya Palm [facility] 02/05/2025 15:30:07 Social History Question Answer Notes LastModified by Organizat ion Details LastModified Time Tobacco Smoking Status Former Smoker Maverick sawyer [facility] 06/18/2021 10:11:12 Do You Have An Advance Directive? No [email or web address] Information not available 02/02/2021 If You Are , What Was Your Level Of Alcohol Consumption Prior To ? Occasional [email or web address] Information not available 06/07/2022 Are You Blind Or Do You Have Difficulty Seeing? No [email or web address] Information not available 11/20/2020 What Is Your Level Of Caffeine Consumption? Occasional [email or web address] Information not available 06/07/2022 In The 14 Days Before Symptom Onset, Have You Had Close Contact With A Laboratory-confir med COVID-19 While That Case Was Ill? No Information not available 02/02/2021 In The 14 Days Before Symptom Onset, Have You Had Close Contact With A Person Who Is Under Investigation For COVID-19 While That Person Was Ill? No [email or web address] Information not available 02/02/2021 Have You Been To An Area Known To Be High Risk For COVID-19? No Information not available 02/02/2021 Are You Deaf Or Do You Have Serious Difficulty Hearing? No [email or web address] Information not available 11/20/2020 What Type Of Diet Are You Following? REGULAR Information not available 11/20/2020 What Is The Highest Grade Or Level Of School You Have Completed Or The Highest Degree You Have Received? [id number] [email or web address] Information not available 02/02/2021 Are There Any Guns Present In Your Home? No [email or web address] Information not available 02/02/2021 What Was The Date Of Your Most Recent Tobacco Screening? 02/24/2023 Information not available 02/24/2023 Do You Use Your Seat Belt Or Car Seat Routinely? Yes [email or web address] Information not available 02/02/2021 Do You Have Smoke And Carbon Monoxide Detectors In Your Home? Yes [email or web address] Information not available 02/02/2021 How Much Tobacco Do You Smoke? No [email or web address] Information not available 11/22/2019 Do You Use Sunscreen Routinely? No Information not available 02/02/2021 Have You Used IV Drugs? No [email or web address] Information not available 02/02/2021 Do You Have Difficulty Walking Or Climbing Stairs? No [email or web address] Information not available 06/18/2021 Sex: Unknown Functional Status Question Answer Note LastModified by Organizat ion Details LastModified Time Do you use any illicit or recreational drugs? No Information not available 02/02/2021 What is your level of alcohol consumption? None [email or web address] Information not available 06/07/2022 Do you or have you ever used smokeless tobacco? Never used smokeless tobacco [email or web address] Information not available 06/18/2021 Are you able to walk independently without assistance or assistive devices? YESWOREST [email or web address] Information not available 11/20/2020 Are you able to care for yourself independently? 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 No [email or web address] Information not available 06/18/2021 Do you or have you ever used e-cigarettes or vape? Former user of electronic cigarettes [email or web address] Information not available 06/18/2021 What is your exercise level? Occasional [email or web address] Information not available 11/22/2019 Mental Status Question Answer Note LastModified by Organization D etails LastModified Time Do you feel stressed (tense, restless, nervous, or anxious, or unable to sleep at night)? [id number] [email or web address] Information not available 02/02/2021 Family History Nothing [...] ICD10 Code Diagnosis IMO Codes Diagnosis Note [id number] Anali Jesus [facility] [address] [address] 01/15/2025 14:14:05 01/15/2025 14:55:03 Gestation period, 27 weeks 91779082 Z3A.27 0211065 cont pnv [id number] Huy Pratt MD [facility] [address] [place] [address] 01/22/2025 13:36:37 01/22/2025 14:21:06 Excessive growth affecting management of mother 78620800 O36.63X0 Z3A.28 612550 [id number] [facility] [address] [place] [address] 01/22/2025 13:36:49 01/22/2025 14:24:26 Gestation period, 28 weeks 99202077 Z3A.28 8525208 cont pnv [id number] Huy Pratt MD [place] [address] [place] [address] 02/05/2025 14:34:54 02/05/2025 15:28:08 Polyhydramnios 24721941 O40.3XX0 Z3A.30 22325706 [id number] JULIA TAN MD [place] [address],[place] [address] 02/05/2025 14:35:23 02/05/2025 15:43:53 Large for gestation age fetus 870164134 O36.60X0 19791174 - EFW 91% at 28 weeks, repeat at 32 weeks- FABIENNE wnl at 30 weeks- passed GCT Gestation period, 30 weeks 09620722 Z3A.30 0277472 - continue PNV Health Concerns Section Related Observation LastModified by Organization Detai ls LastModified Time None Recorded Concern Status LastModified by Organization Details LastModified Time None Recorded Payers Encounter Date Sequence Insurance Name Policy Number Policy Romero Covered Member ID Romero Member ID Guarantor Name 02/05/2025 1 [employer] (MEDICAID HMO) [id number] Kali Alfaro [id number] Kali Alfaro Notes Date Note Type Note Provider Name and Address Organization Details Recorded Time 02/05/2025 text/html Generic HPI TemplateReported by Patient JULIA TAN MD [address], [place], [address], [facility] 02/05/2025 15:42:08 OBGyn Episode Ob Episode Information Episode Created Date Number of Fetuses Patient Bloodtype Patient rh Status Prepregnancy Weight lbs Domestic Partner Domestic Partner Phone Father Name Terrazzo Installer Status 10/26/19 25 1 O Positive 215 Jasbir Javier s OPEN Fetus Data First Name Last Name Admitted to NICU Weight (g) Sex Living Outcome Pediatric Complications Fetus ID Race Codes Race Delivery Type [id number] Gallito Calculation Initial Gallito Date Initial Exam [...] Weight in lbs Pre/Post Dialysis Refused Weight 203.555811774502 BP Diastolic BP Location Tested BP Systolic BP Type 72 L arm 107 sitting Fetus Heart Rate Present A 145 Fetus Movement A Yes Comments Patient presents to [facility] care. otherwise uncomplicated. No nausea or cramping. NT/NB wnl. Had UTI last week, finishing antibiotics today. No bleeding. RTC 4 weeks for routine care with anatomy US. Flowsheet Date 11/22/2024 Santos Score Blood Edema Fundus Height Fundus Units Glucose Ketones Leukocytes Nitrite Labor Signs Protein Cervic Dilation Cervic Effacement Cervic Station Type Weight in lbs Pre/Post Dialysis Refused Weight 203.571653380980 BP Diastolic BP Location Tested BP Systolic [...] Type Weight in lbs Pre/Post Dialysis Refused 204.039156751147 BP Diastolic BP Location Tested BP Systolic [...] Type Weight in lbs Pre/Post Dialysis Refused 206.402118261985 BP Diastolic BP Location Tested BP Systolic [...] Type Weight in lbs Pre/Post Dialysis Refused 204.730405800877 BP Diastolic BP Location Tested BP Systolic [...]
--- OUTSIDE RECORDS SUMMARY | 2025-02-06 14:35 | XMS_ITS | Continuity of Care Document ---
Author Organization [facility] [place] Address [address] [place] [address] Care Team Providers Care Curing Finisher Name Role Phone AMILCAR FRENCH Primary Care Provider Assessment Encounter Date Assessment Date Assessment LastModified by Organization Details LastModified Time 01/22/2025 01/22/2025 Patient is _28__weeks . Discussed plan. Not available 01/22/2025 14:22:32 Plan of Treatment [...] t Abnor mal: No Resul ting Lab: [facility] [address] [facility] [address] Tel: CULTU RE ----- ----- ----- --- No growt h in 1 day (dete ction level of 10,00 0 colon ies / ml.) Not Available [facility] (Lab) [address] , [place], [address], 10/27/2024 07:21:44 11/23/1911/22/2024 CULTU RE: URINE result report SEE RESULT S BELOW Test: Cultu re: Urine Speci men Sourc e: Urine Voide d Speci men Type: Urine Speci men Date: 144 Resul t Date: 05 Resul t Statu s: Final resul t Abnor mal: Monica sow Lab: [facility] [address] [facility] [address] Tel: CULTU RE ----- ----- ----- --- No growt h in 1 day (dete ction level of 10,00 0 colon ies / ml.) Not Available [facility] (Lab) [address], [place], [address], 11/24/2024 07:08:30 11/23/1911/22/2024 urina lysis , dipst ick Leukocytes - Not Available [facility] [address], [place], [address], 11/22/2024 11:22:28 11/23/1911/22/2024 urina lysis , dipst ick Nitrite - Not Available [place] [address], [place], [address], 11/22/2024 11:22:28 11/23/19 25 11/22/2024 urina lysis , dipst ick Urobilinogen - Not Available Moises ling [address], [place], [address], 11/22/2024 11:22:28 11/23/19 25 11/22/2024 urina lysis , dipst ick Protein trace Not Available [place] [address], [place], [address], 11/22/2024 11:22:28 11/23/19 25 11/22/2024 urina lysis , dipst ick pH 9 Not Available [place] [address], [place], [address], 11/22/2024 11:22:28 11/23/19 25 11/22/2024 urina lysis , dipst ick Specific [place] 1.000 Not Available Rebecca farias [address], [place], [address], 11/22/2024 11:22:28 11/23/19 25 11/22/2024 urina lysis , dipst ick Ketone - Not Available [place] [address], [place], [address], 11/22/2024 11:22:28 11/23/19 25 11/22/2024 urina lysis , dipst ick Bilirubin - Not Available Isidro estrada [address], [place], [address], 11/22/2024 11:22:28 11/23/19 25 11/22/2024 urina lysis , dipst ick Glucose - Not Available [place] [address], [place], [address], 11/22/2024 11:22:28 11/23/19 25 11/22/2024 urina lysis , dipst ick Appearance clear Not Available Gabino danielle [address], [place], [address], 11/22/2024 11:22:28 11/23/19 25 11/22/2024 urina lysis , dipst ick Color light yellow Not Available [place] [address], [place], [address], 11/22/2024 11:22:28 01/16/2001/15/2025 HEMAT OCRIT (HCT) HCT 36.6 % (based on docume nted legal sex) 34.0-4 5.0 Not Available [facility] (Lab) [address] [facility], [place], [address], 01/16/2025 12:37:01 01/16/2001/15/2025 HEMOG LOBIN (HGB) HGB 12.1 g/dL (based on docume nted legal sex) 11.6-1 5.4 Not Available [facility] (Lab) [address] [facility], [place], [address], 01/16/2025 12:37:01 01/16/2001/15/2025 GTT - GESTA SYLVIA L YULIA Kirby, ACOG OB glucose, 1 hour screen 93 mg/dL 70-135 Not Available [facility] (Lab) [address] [facility], [place], [address], 01/16/2025 12:37:02 01/16/2001/15/2025 HIV 1/2 ANTIG EN/AN TIBOD Y, REFLE X CONFI RMATI ON HIV antigen/anti body Nonrea ctive nonrea ctive HIV-1 antig en and HIV-1 /HIV- 2 antib odies were not detec julissa. No labor atory evide nce of HIV infec tion. Not Available [facility] (Lab) [address] [facility], [place], [address], 01/16/2025 12:37:02 01/16/2001/15/2025 RPR SCREE N, REFLE X TITER /CONF IRMAT ION RPR qualitative Nonrea ctive nonrea ctive Not Available [facility] (Lab) [address] [place], [address], 01/16/2025 12:37:02 12/06/19 12/05/2024 US, obste tric, follo w-up No observ ation record ed. [email or web address] Laura [address], [place], [address], 12/05/2024 12:32:44 12/06/19 25 12/05/2024 US, obste tric, 2nd or 3rd trime ster No observ ation record ed. [email or web address] [place] [address], [place], [address], 12/05/2024 14:25:17 12/06/19 25 12/05/2024 US, obste tric, 2nd or 3rd trime ster No observ ation record ed. [email or web address] [place] [address], [place], [address], 12/24/2024 17:05:43 01/23/20 25 01/22/2025 US, obste tric, follo w-up No observ ation record ed. [email or web address] [place] [address], [place], [address], 01/22/2025 18:26:35 01/23/20 25 01/22/2025 US, obste tric, follo w-up No observ ation record ed. [email or web address] [place] [address], [place], [address], 01/23/2025 17:28:20 02/06/20 25 02/05/2025 US, obste tric, limit ed No observ ation record ed. [email or web address] [place] [address], [place], [address], 02/05/2025 18:03:16 02/06/20 25 02/05/2025 US, obste tric, limit ed No observ ation record ed. [email or web address] [place] [address], [place], [address], 02/05/2025 21:08:22 Result Notes None recorded. Problems Name Problem SNOMED Code Status Onset Date Resolution Date Notes Provider Name and Address Organization Details Recorded Time Nausea [id number] Completed Priyank Salazar [facility] 3 15:53:32 [id number] Completed 201902/27/2020 Yara Tang [facility] 5 12:15:09 Chlamydial infection [id number] Completed 2022 ARCHIE neg 11/28 Priyank Salazar [facility] 3 15:53:32 [id number] Completed 202201/02/2023 Yara Tang [facility] 5 12:15:09 [id number] Active 2024 Yara Tang [facility] 5 12:15:09 Problem Notes None recorded. Procedures Surgical History Date Name Laterality Status Provider Name and Address Organization Details Recorded Time 3 Date of Last Pap Smear completed Jojo Sidhu [facility] 06/07/2022 16:21:28 2 IUD Removal completed SATHYA Pineda- [address], [place], [address], [facility] 12/07/2021 15:13:12 0 IUD Insertion completed Anali Jesus CNM [address], [place], [address], [facility] 02/27/2020 12:14:04 0 Breast Surgery completed Jojo Sidhu [facility] 06/07/2022 16:22:43 Imaging Results None recorded. Procedure Notes None recorded. Medical Equipment None Reported. Allergies Allergen ID Allergen Name Allergen Category Reaction Reaction Severity Criticality Documentation Date Start Date Code Code System Note Provider Name and Address Organization Details Recorded Time 1604 amoxicill in medicatio n hives Not available Not available 10/25/2019 723 RxNorm Yara Kitty [facility], [facility] 0 10:51:07 Medications Name Sig Start [...] Address Organization Details Last Updated DateTime 01/22/2025 51248.01566 g 112/76 mm[Hg] Carina Levy [facility] 01/22/2025 14:14:21 Social History Question Answer Notes LastModified by Organizat ion Details LastModified Time Tobacco Smoking Status Former Smoker Maverick Valles [facility] 06/18/2021 10:11:12 Do You Have An Advance Directive? No [email or web address] Information not available 02/02/2021 If You Are , What Was Your Level Of Alcohol Consumption Prior To ? Occasional [email or web address] Information not available 06/07/2022 Are You Blind Or Do You Have Difficulty Seeing? No Information not available 11/20/2020 What Is Your Level Of Caffeine Consumption? Occasional [email or web address] Information not available 06/07/2022 In The 14 Days Before Symptom Onset, Have You Had Close Contact With A Laboratory-confir med COVID-19 While That Case Was Ill? No [email or web address] Information not available 02/02/2021 In The 14 Days Before Symptom Onset, Have You Had Close Contact With A Person Who Is Under Investigation For COVID-19 While That Person Was Ill? No [email or web address] Information not available 02/02/2021 Have You Been To An Area Known To Be High Risk For COVID-19? No Information not available 02/02/2021 Are You Deaf Or Do You Have Serious Difficulty Hearing? No [email or web address] Information not available 11/20/2020 What Type Of Diet Are You Following? REGULAR [email or web address] Information not available 11/20/2020 What Is The Highest Grade Or Level Of School You Have Completed Or The Highest Degree You Have Received? [id number] Information not available 02/02/2021 Are There Any Guns Present In Your Home? No Information not available 02/02/2021 What Was The Date Of Your Most Recent Tobacco Screening? 02/24/2023 [email or web address] Information not available 02/24/2023 Do You Use Your Seat Belt Or Car Seat Routinely? Yes [email or web address] Information not available 02/02/2021 Do You Have Smoke And Carbon Monoxide Detectors In Your Home? Yes Information not available 02/02/2021 How Much Tobacco Do You Smoke? No [email or web address] Information not available 11/22/2019 Do You Use Sunscreen Routinely? No [email or web address] Information not available 02/02/2021 Have You Used IV Drugs? No [email or web address] Information not available 02/02/2021 Do You Have Difficulty Walking Or Climbing Stairs? No [email or web address] Information not available 06/18/2021 Sex: Unknown Functional Status Question Answer Note LastModified by Organizat ion Details LastModified Time Do you use any illicit or recreational drugs? No [email or web address] Information not available 02/02/2021 What is your level of alcohol consumption? None [email or web address] Information not available 06/07/2022 Do you or have you ever used smokeless tobacco? Never used smokeless tobacco [email or web address] Information not available 06/18/2021 Are you able to walk independently without assistance or assistive devices? YESWOREST [email or web address] Information not available 11/20/2020 Are you able to care for yourself independently? 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 No [email or web address] Information not available 06/18/2021 Do you or have you ever used e-cigarettes or vape? Former user of electronic cigarettes [email or web address] Information not available 06/18/2021 What is your exercise level? Occasional [email or web address] Information not available 11/22/2019 Mental Status Question Answer Note LastModified by Organization D etails LastModified Time Do you feel stressed (tense, restless, nervous, or anxious, or unable to sleep at night)? [id number] [email or web address] Information not available 02/02/2021 Family History Nothing Reported. Medical History Condition Response Allergies (Food, seasonal, environmental ) N Other N Drug/Latex Allergies/Reactions N Breast Cancer N Blood Transfusion N Lung Disease N Dermatologic Disorders N Defects or Inherited Disease N Breast Problem Y Gestational Diabetes N Hematologic disorders N Anesthesia Complications N History of STI N Deep Vein Thrombosis N Polycystic ovary syndrome N Anxiety Disorder Y Autoimmune disease N Arthritis N Polyps N Infertility N History of abnormal pap N Acid Reflux (GERD) N Cancer N Varicosities N Stroke N Neurologic/Epilepsy N Endometriosis N High Cholesterol N Headaches N Fibromyalgia N Kidney Disease N Heart Problems N Thyroid Problems N Kidney or Bladder Problems N GI Problems N Eating Disorder [...] ICD10 Code Diagnosis IMO Codes Diagnosis Note [id number] [facility] [address],[place] [address] 01/15/2025 14:14:05 01/15/2025 14:55:03 Gestation period, 27 weeks [id number] Z3A.27 [id number] cont pnv [id number] Huy Pratt MD [place] [address] [place] [address] 01/22/2025 13:36:37 01/22/2025 14:21:06 Excessive growth affecting management of mother [id number] O36.63X0 Z3A.28 [id number] [facility] [address],[place] [address] 01/22/2025 13:36:49 01/22/2025 14:24:26 Gestation period, 28 weeks 80392322 Z3A.28 [id number] cont pnv Health Concerns Section Related Observation LastModified by Organization Detai ls LastModified Time None Recorded Concern Status LastModified by Organization Details LastModified Time None Recorded Payers Encounter Date Sequence Insurance Name Policy Number Policy Romero Covered Member ID Romero Member ID Guarantor Name 01/22/2025 1 [facility] (MEDICAID HMO) [id number] Kali Alfaro [id number] Kali Alfaro Notes Date Note Type Note Provider Name and Address Organization Details Recorded Time 01/22/2025 text/html Generic HPI TemplateReported by Patient Anali Sophie Jesus, GABBI [address], [place], [address], [place] [facility] 01/22/2025 14:22:54 OBGyn Episode Ob Episode Information Episode Created Date Number of Fetuses Patient Bloodtype Patient rh Status Prepregnancy Weight lbs Domestic Partner Domestic Partner Phone Father Name Leasing Property Manager Status 10/26/19 25 1 O Positive 215 Jasbir sandoval OPEN Fetus Data First Name Last Name Admitted to NICU Weight (g) Sex Living Outcome Pediatric Complications Fetus ID Race Codes Race Delivery Type [id number] Gallito Calculation Initial Gallito Date Initial Exam [...] Weight in lbs Pre/Post Dialysis Refused Weight 203.940403577054 BP Diastolic BP Location Tested BP Systolic BP Type 72 L arm 107 sitting Fetus Heart Rate Present A 145 Fetus Movement A Yes Comments Patient presents to [facility] care. otherwise uncomplicated. No nausea or cramping. NT/NB wnl. Had UTI last week, finishing antibiotics today. No bleeding. RTC 4 weeks for routine care with anatomy US. Flowsheet Date 11/22/2024 Santos Score Blood Edema Fundus Height Fundus Units Glucose Ketones Leukocytes Nitrite Labor Signs Protein Cervic Dilation Cervic Effacement Cervic Station Type Weight in lbs Pre/Post Dialysis Refused Weight 203.885093441029 BP Diastolic BP Location Tested BP Systolic [...] Type Weight in lbs Pre/Post Dialysis Refused 204.177430274052 BP Diastolic BP Location Tested BP Systolic [...] Type Weight in lbs Pre/Post Dialysis Refused 206.334680918551 BP Diastolic BP Location Tested BP Systolic [...] Type Weight in lbs Pre/Post Dialysis Refused 204.563230387453 BP Diastolic BP Location Tested BP Systolic [...]
--- OUTSIDE RECORDS SUMMARY | 2025-02-06 14:36 | XMS_ITS | Continuity of Care Document ---
Author Organization 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 Plan of Treatment Reminders Order Date Submit Date Provider Last Modified By Organization Details Last Modified Time Details Appointments U/S OB GROWTH 2024 02:00P M ULTRASOUND Not available Not available Not available OB ROUTINE 2024 02:30P M Mima HANSEN MD Not available Not available Not available Lab culture , urine 2024 025 [facility] (Lab), [address] [facility], [place], [address], 11/24/2024 07:08:30 urinaly sis, dipstic k 2024 025 [email or web address] [address], [address], [place], [address], 11/22/2024 11:22:54 Referral None recorde d. Procedures None recorde [...] t Abnor mal: No Resul ting Lab: [facility] [address] [facility] [address] Tel: CULTU RE ----- ----- ----- --- No growt h in 1 day (dete ction level of 10,00 0 colon ies / ml.) Not Available [facility] (Lab) [address] [facility], [place], [address], 10/27/2024 07:21:44 11/23/1911/22/2024 CULTU RE: URINE result report SEE RESULT S BELOW Test: Cultu re: Urine Speci men Sourc e: Urine Voide d Speci men Type: Urine Speci men Date: 025 1442 Resul t Date: 025 0605 Resul t Statu s: Final resul t Abnor mal: No Resul ting Lab: [facility] [address] [facility] [address] Tel: CULTU RE ----- ----- ----- --- No growt h in 1 day (dete ction level of 10,00 0 colon ies / ml.) Not Available [facility] (Lab) [address], [place], [address], 11/24/2024 07:08:30 11/23/1911/22/2024 urina lysis , dipst ick Leukocytes - Not Available Gabino danielle [address], [place], [address], 11/22/2024 11:22:28 11/23/1911/22/2024 urina lysis , dipst ick Nitrite - Not Available [place] [address], [place], [address], 11/22/2024 11:22:28 11/23/1911/22/2024 urina lysis , dipst ick Urobilinogen - Not Available [facility] sushil [address], [place], [address], 11/22/2024 11:22:28 11/23/19 25 11/22/2024 urina lysis , dipst ick Protein trace Not Available [place] [address], [place], [address], 11/22/2024 11:22:28 11/23/19 25 11/22/2024 urina lysis , dipst ick pH 9 Not Available [place] [address], [place], [address], 11/22/2024 11:22:28 11/23/19 25 11/22/2024 urina lysis , dipst ick Specific [place] 1.000 Not Available [facility] [address], [place], [address], 11/22/2024 11:22:28 11/23/19 25 11/22/2024 urina lysis , dipst ick Ketone - Not Available [place] [address], [place], [address], 11/22/2024 11:22:28 11/23/19 25 11/22/2024 urina lysis , dipst ick Bilirubin - Not Available Isidro estrada [address], [place], [address], 11/22/2024 11:22:28 11/23/19 25 11/22/2024 urina lysis , dipst ick Glucose - Not Available [place] [address], [place], [address], 11/22/2024 11:22:28 11/23/19 25 11/22/2024 urina lysis , dipst ick Appearance clear Not Available Gabino danielle [address], [place], [address], 11/22/2024 11:22:28 11/23/1911/22/2024 urani lysis , dipst ick Color light yellow Not Available [place] [address], [place], [address], 11/22/2024 11:22:28 12/06/19 25 12/05/2024 US, obste tric, follo w-up No observ ation record ed. [email or web address] Laura [address], [place], [address], 12/05/2024 12:32:44 12/06/19 25 12/05/2024 US, obste tric, 2nd or 3rd trime ster No observ ation record ed. [email or web address] [place] [address], [place], [address], 12/05/2024 14:25:17 12/06/19 25 12/05/2024 US, obste tric, 2nd or 3rd trime ster No observ ation record ed. [email or web address] Laura [address], [place], [address], 12/24/2024 17:05:43 01/23/20 25 01/22/2025 US, obste tric, follo w-up No observ ation record ed. [email or web address] [place] [address], [place], [address], 01/22/2025 18:26:35 01/23/20 25 01/22/2025 US, obste tric, follo w-up No observ ation record ed. Laura [address], [place], [address], 01/23/2025 17:28:20 02/06/20 25 02/05/2025 US, obste tric, limit ed No observ ation record ed. [email or web address] [place] [address], [place], [address], 02/05/2025 18:03:16 02/06/20 25 02/05/2025 US, obste tric, limit ed No observ ation record ed. [email or web address] Laura [address], [place], [address], 02/05/2025 21:08:22 Result Notes None recorded. Problems Name Problem SNOMED Code Status Onset Date Resolution Date Notes Provider Name and Address Organization Details Recorded Time Nausea 518853208 Completed Priyank Marie [facility] 3 15:53:32 [id number] Completed 201902/27/2020 Yara Tang [facility] 5 12:15:09 Chlamydial infection 513736505 Completed 2022 ARCHIE neg 11/28 Priyank Marie [facility], [facility] 3 15:53:32 12971626 Completed 202201/02/2023 Yara Tang [facility], [facility] 5 12:15:09 [id number] Active 2024 Yara Tang [facility] 5 12:15:09 Problem Notes None recorded. Procedures Surgical History Date Name Laterality Status Provider Name and Address Organization Details Recorded Time 3 Date of Last Pap Smear completed Jojo Sidhu [facility] 06/07/2022 16:21:28 2 IUD Removal completed Erica Benz KATHIE- [address], [place], [address], [facility] 12/07/2021 15:13:12 0 IUD Insertion completed Anali Jesus, GABBI [address], [place], [address], [place] [facility] 02/27/2020 12:14:04 0 Breast Surgery completed Jojo Sidhu [facility] 06/07/2022 16:22:43 Imaging Results None recorded. Procedure Notes None recorded. Medical Equipment None Reported. Allergies Allergen ID Allergen Name Allergen Category Reaction Reaction Severity Criticality Documentation Date Start Date Code Code System Note Provider Name and Address Organization Details Recorded Time 1604 amoxicill in medicatio n hives Not available Not available 10/25/2019 723 RxNorm Yara sawyer, [facility] 0 10:51:07 Medications Name Sig Start [...] Available Not Available Vitals Date Recorded Body height Body mass index (BMI) Body weight Systolic And Diastolic Provider Name and Address Organization Details Last Updated DateTime 11/22/2024 166.37 cm 33.4 kg/m2 06197.13 g 117/77 mm[Hg] Lesly Portillo [facility] 11/22/2024 10:58:06 Social History Question Answer Notes LastModified by Organizat ion Details LastModified Time Tobacco Smoking Status Former Smoker Maverick Valles [facility], [facility] 06/18/2021 10:11:12 Do You Have An Advance Directive? No Information not available 02/02/2021 If You Are , What Was Your Level Of Alcohol Consumption Prior To ? Occasional [email or web address] Information not available 06/07/2022 Are You Blind Or Do You Have Difficulty Seeing? No [email or web address] Information not available 11/20/2020 What Is Your Level Of Caffeine Consumption? Occasional [email or web address] Information not available 06/07/2022 In The 14 Days Before Symptom Onset, Have You Had Close Contact With A Laboratory-confir med COVID-19 While That Case Was Ill? No [email or web address] Information not available 02/02/2021 In The 14 Days Before Symptom Onset, Have You Had Close Contact With A Person Who Is Under Investigation For COVID-19 While That Person Was Ill? No [email or web address] Information not available 02/02/2021 Have You Been To An Area Known To Be High Risk For COVID-19? No [email or web address] Information not available 02/02/2021 Are You Deaf Or Do You Have Serious Difficulty Hearing? No [email or web address] Information not available 11/20/2020 What Type Of Diet Are You Following? REGULAR [email or web address] Information not available 11/20/2020 What Is The Highest Grade Or Level Of School You Have Completed Or The Highest Degree You Have Received? [id number] [email or web address] Information not available 02/02/2021 Are There Any Guns Present In Your Home? No Information not available 02/02/2021 What Was The Date Of Your Most Recent Tobacco Screening? 02/24/2023 [email or web address] Information not available 02/24/2023 Do You Use Your Seat Belt Or Car Seat Routinely? Yes [email or web address] Information not available 02/02/2021 Do You Have Smoke And Carbon Monoxide Detectors In Your Home? Yes [email or web address] Information not available 02/02/2021 How Much Tobacco Do You Smoke? No [email or web address] Information not available 11/22/2019 Do You Use Sunscreen Routinely? No [email or web address] Information not available 02/02/2021 Have You Used IV Drugs? No [email or web address] Information not available 02/02/2021 Do You Have Difficulty Walking Or Climbing Stairs? No [email or web address] Information not available 06/18/2021 Sex: Unknown Functional Status Question Answer Note LastModified by Organizat ion Details LastModified Time Do you use any illicit or recreational drugs? No [email or web address] Information not available 02/02/2021 What is your level of alcohol consumption? None [email or web address] Information not available 06/07/2022 Do you or have you ever used smokeless tobacco? Never used smokeless tobacco [email or web address] Information not available 06/18/2021 Are you able to walk independently without assistance or assistive devices? YESWOREST [email or web address] Information not available 11/20/2020 Are you able to care for yourself independently? 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 No [email or web address] Information not available 06/18/2021 Do you or have you ever used e-cigarettes or vape? Former user of electronic cigarettes [email or web address] Information not available 06/18/2021 What is your exercise level? Occasional [email or web address] Information not available 11/22/2019 Mental Status Question Answer Note LastModified by Organization D etails LastModified Time Do you feel stressed (tense, restless, nervous, or anxious, or unable to sleep at night)? [id number] [email or web address] Information not available 02/02/2021 Family History Nothing Reported. Medical History Condition Response Allergies (Food, seasonal, environmental ) N Other N Blood Transfusion N Drug/Latex Allergies/Reactions N Breast Cancer N Dermatologic Disorders N Lung Disease N [...] ICD10 Code Diagnosis IMO Codes Diagnosis Note [id number] MD Adriana RUSSELL [address] [address] 10/25/2024 12:01:04 10/25/2024 12:45:03 care status [id number] Z34.82 [id number] MD Adriana RUSSELL [address] [place] [address] 11/22/2024 10:49:13 11/22/2024 12:09:51 Urinary system finding [id number] R39.9 [id number] Gestation period, 19 weeks 63783445 Z3A.19 [id number] Health Concerns Section Related Observation LastModified by Organization Detai ls LastModified Time None Recorded Concern Status LastModified by Organization Details LastModified Time None Recorded Payers Encounter Date Sequence Insurance Name Policy Number Policy Romero Covered Member ID Romero Member ID Guarantor Name 11/22/2024 1 [facility] (MEDICAID HMO) [id number] Kali Alfaro [id number] Kali Alfaro Notes Date Note Type Note Provider Name and Address Organization Details Recorded Time 11/22/2024 text/html Generic HPI TemplateReported by Patient JULIA TAN MD [address], [place], [address], [place] [facility] 11/22/2024 12:00:36 OBGyn Episode Ob Episode Information Episode Created Date Number of Fetuses Patient Bloodtype Patient rh Status Prepregnancy Weight lbs Domestic Partner Domestic Partner Phone Father Name Specialty Department Supervisor Status 10/26/19 25 1 O Positive 215 Jasbir Herrera s OPEN Fetus Data First Name Last Name Admitted to NICU Weight (g) Sex Living Outcome Pediatric Complications Fetus ID Race Codes Race Delivery Type [id number] Gallito Calculation Initial Gallito Date Initial Exam [...] Latest Days Gestation 0 04/12/19 26 0 Pre-sixto Flowsheet Flowsheet Date 10/25/2024 Santos Score Blood Edema Fundus Height Fundus Units Glucose Ketones Leukocytes Nitrite Labor Signs Protein Cervic Dilation Cervic Effacement Cervic Station Type Weight in lbs Pre/Post Dialysis Refused Weight 203.267038326701 BP Diastolic BP Location Tested BP Systolic BP Type 72 L arm 107 sitting Fetus Heart Rate Present A 145 Fetus Movement A Yes Comments Patient presents to [facility] care. otherwise uncomplicated. No nausea or cramping. NT/NB wnl. Had UTI last week, finishing antibiotics today. No bleeding. RTC 4 weeks for routine care with anatomy US. Flowsheet Date 11/22/2024 Santos Score Blood Edema Fundus Height Fundus Units Glucose Ketones Leukocytes Nitrite Labor Signs Protein Cervic Dilation Cervic Effacement Cervic Station Type Weight in lbs Pre/Post Dialysis Refused Weight 203.266477595781 BP Diastolic BP Location Tested BP Systolic [...] Type Weight in lbs Pre/Post Dialysis Refused 204.804202292713 BP Diastolic BP Location Tested BP Systolic [...] Type Weight in lbs Pre/Post Dialysis Refused 206.762828661663 BP Diastolic BP Location Tested BP Systolic [...] Type Weight in lbs Pre/Post Dialysis Refused 204.121370379695 BP Diastolic BP Location Tested BP Systolic [...]
--- OUTSIDE RECORDS SUMMARY | 2025-02-06 14:36 | XMS_ITS | Continuity of Care Document ---
Author Organization [facility], [place] Address [address] [place] [address] [address] Care Team Providers Care Distresser Name Role Phone AMILCAR FRENCH Primary Care [...] None recorde d. Imaging US, obstetr ic, 2nd or 3rd trimest er 2024 025 [email or web address] [place], [address], [place], [address], 12/06/2024 09:41:29 Medication Orders None recorde d. Patient TargetsNo [...] Resul ting Lab: [facility] [address] [facility] [address] Tel: CULTU RE ----- ----- ----- --- No growt h in 1 day (dete ction level of 10,00 0 colon ies / ml.) Not Available [facility] (Lab) [address] [facility], [place], [address], 10/27/2024 07:21:44 11/23/1911/22/2024 CULTU RE: URINE result report SEE RESULT S BELOW Test: Cultu re: Urine Speci men Sourc e: Urine Voide d Speci men Type: Urine Speci men Date: 144 Resul t Date: 604 Resul t Statu s: Final resul t Abnor mal: No Resul ting Lab: [facility] [address] [facility] [address] Tel: CULTU RE ----- ----- ----- --- No growt h in 1 day (dete ction level of 10,00 0 colon ies / ml.) Not Available [facility] (Lab) [address] , [place], [address], 11/24/2024 07:08:30 11/23/1911/22/2024 urina lysis , dipst ick Leukocytes - Not Available [facility] [address], [place], [address], 11/22/2024 11:22:28 11/23/1911/22/2024 urina lysis , dipst ick Nitrite - Not Available [place] [address], [place], [address], 11/22/2024 11:22:28 11/23/1911/22/2024 urina lysis , dipst ick Urobilinogen - Not Available Moises ling [address], [place], [address], 11/22/2024 11:22:28 11/23/19 25 11/22/2024 urina lysis , dipst ick Protein trace Not Available [place] [address], [place], [address], 11/22/2024 11:22:28 11/23/19 25 11/22/2024 urina lysis , dipst ick pH 9 Not Available [place] [address], [place], [address], 11/22/2024 11:22:28 11/23/19 25 11/22/2024 urina lysis , dipst ick Specific [place] 1.000 Not Available [facility] [address], [place], [address], 11/22/2024 11:22:28 11/23/19 25 11/22/2024 urina lysis , dipst ick Ketone - Not Available [place] [address], [place], [address], 11/22/2024 11:22:28 11/23/19 25 11/22/2024 urina lysis , dipst ick Bilirubin - Not Available [facility] [address], [place], [address], 11/22/2024 11:22:28 11/23/19 25 11/22/2024 urina lysis , dipst ick Glucose - Not Available [place] [address], [place], [address], 11/22/2024 11:22:28 11/23/19 25 11/22/2024 urina lysis , dipst ick Appearance clear Not Available Gabino danielle [address], [place], [address], 11/22/2024 11:22:28 11/23/19 25 11/22/2024 urina lysis , dipst ick Color light yellow Not Available [place] [address], [place], [address], 11/22/2024 11:22:28 12/06/19 25 12/05/2024 US, obste tric, follo w-up No observ ation record ed. [email or web address] Laura [address], [place], [address], 12/05/2024 12:32:44 12/06/19 25 12/05/2024 US, obste tric, 2nd or 3rd trime ster No observ ation record ed. [email or web address] [place] [address], [place], [address], 12/05/2024 14:25:17 12/06/19 25 12/05/2024 US, obste tric, 2nd or 3rd trime ster No observ ation record ed. [email or web address] Laura [address], [place], [address], 12/24/2024 17:05:43 01/23/20 25 01/22/2025 US, obste tric, follo w-up No observ ation record ed. [email or web address] [place] [address], [place], [address], 01/22/2025 18:26:35 01/23/20 25 01/22/2025 US, obste tric, follo w-up No observ ation record ed. Laura [address], [place], [address], 01/23/2025 17:28:20 02/06/20 25 02/05/2025 US, obste tric, limit ed No observ ation [facility] [address], [place], [address], 02/05/2025 18:03:16 02/06/20 25 02/05/2025 US, obste tric, limit ed No observ ation record ed. [email or web address] Laura [address], [place], [address], 02/05/2025 21:08:22 Result Notes None recorded. Problems Name Problem SNOMED Code Status Onset Date Resolution Date Notes Provider Name and Address Organization Details Recorded Time Nausea 408199513 Completed Priyank Salazar [facility] 3 15:53:32 32050167 Completed 201902/27/2020 [facility] 5 12:15:09 Chlamydial infection 970918402 Completed 2022 ARCHIE neg 11/28 [facility] 15:53:32 [id number] Completed 202201/02/2023 Yara [facility] 5 12:15:09 [id number] Active 2024 [facility] 5 12:15:09 Problem Notes None recorded. Procedures Surgical History Date Name Laterality Status Provider Name and Address Organization Details Recorded Time 3 Date of Last Pap Smear completed Jojo Sidhu [facility] 06/07/2022 16:21:28 2 IUD Removal completed SATHYA Pineda- [address], [place], [address], [facility] 12/07/2021 15:13:12 0 IUD Insertion completed Anali Jesus CNM [address], [place], [address], [facility] 02/27/2020 12:14:04 0 Breast Surgery completed Jojo Sidhu [facility] 06/07/2022 16:22:43 Imaging Results None recorded. Procedure Notes None recorded. Medical Equipment None Reported. Allergies Allergen ID Allergen Name Allergen Category Reaction Reaction Severity Criticality Documentation Date Start Date Code Code System Note Provider Name and Address Organization Details Recorded Time 1604 amoxicill in medicatio n hives Not available Not available 10/25/2019 723 RxNorm Yara Tang digna, [facility] 0 10:51:07 Medications Name Sig Start [...] Not Available Not Available Not Available Vitals None Recorded Social History Question Answer Notes LastModified by Organizat ion Details LastModified Time Tobacco Smoking Status Former Smoker Maverick Valles [facility] [place] - [facility] 06/18/2021 10:11:12 Do You Have An Advance Directive? No [email or web address] Information not available 02/02/2021 If You Are , What Was Your Level Of Alcohol Consumption Prior To ? Occasional Information not available 06/07/2022 Are You Blind Or Do You Have Difficulty Seeing? No [email or web address] Information not available 11/20/2020 What Is Your Level Of Caffeine Consumption? Occasional [email or web address] Information not available 06/07/2022 In The 14 Days Before Symptom Onset, Have You Had Close Contact With A Laboratory-confir med COVID-19 While That Case Was Ill? No [email or web address] Information not available 02/02/2021 In The 14 Days Before Symptom Onset, Have You Had Close Contact With A Person Who Is Under Investigation For COVID-19 While That Person Was Ill? No [email or web address] Information not available 02/02/2021 Have You Been To An Area Known To Be High Risk For COVID-19? No [email or web address] Information not available 02/02/2021 Are You Deaf Or Do You Have Serious Difficulty Hearing? No [email or web address] Information not available 11/20/2020 What Type Of Diet Are You Following? REGULAR [email or web address] Information not available 11/20/2020 What Is The Highest Grade Or Level Of School You Have Completed Or The Highest Degree You Have Received? VV00054-2 [email or web address] Information not available 02/02/2021 Are There Any Guns Present In Your Home? No [email or web address] Information not available 02/02/2021 What Was The Date Of Your Most Recent Tobacco Screening? 02/24/2023 [email or web address] Information not available 02/24/2023 Do You Use Your Seat Belt Or Car Seat Routinely? Yes [email or web address] Information not available 02/02/2021 Do You Have Smoke And Carbon Monoxide Detectors In Your Home? Yes [email or web address] Information not available 02/02/2021 How Much Tobacco Do You Smoke? No [email or web address] Information not available 11/22/2019 Do You Use Sunscreen Routinely? No [email or web address] Information not available 02/02/2021 Have You Used IV Drugs? No Information not available 02/02/2021 Do You Have Difficulty Walking Or Climbing Stairs? No [email or web address] Information not available 06/18/2021 Sex: Unknown Functional Status Question Answer Note LastModified by Organizat ion Details LastModified Time Do you use any illicit or recreational drugs? No Information not available 02/02/2021 What is your level of alcohol consumption? None [email or web address] Information not available 06/07/2022 Do you or have you ever used smokeless tobacco? Never used smokeless tobacco [email or web address] Information not available 06/18/2021 Are you able to walk independently without assistance or assistive devices? YESWOREST [email or web address] Information not available 11/20/2020 Are you able to care for yourself independently? 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 No [email or web address] Information not available 06/18/2021 Do you or have you ever used e-cigarettes or vape? Former user of electronic cigarettes [email or web address] Information not available 06/18/2021 What is your exercise level? Occasional Information not available 11/22/2019 Mental Status Question Answer Note LastModified by Organization D etails LastModified Time Do you feel stressed (tense, restless, nervous, or anxious, or unable to sleep at night)? [id number] [email or web address] Information not available 02/02/2021 Family History Nothing [...] ICD10 Code Diagnosis IMO Codes Diagnosis Note [id number] JULIA TAN MD [place] [address] [address] 11/22/2024 10:49:13 11/22/2024 12:09:51 Urinary system finding [id number] R39.9 1816508 Gestation period, 19 weeks [id number] Z3A.19 [id number] JULIA TAN MD [place] [address] [address] 12/05/2024 11:33:02 12/05/2024 12:41:14 Screening status [id number] Z36.3 Z3A.21 [id number] Health Concerns Section Related Observation LastModified by Organization Detai ls LastModified Time None Recorded Concern Status LastModified by Organization Details LastModified Time None Recorded Payers Encounter Date Sequence Insurance Name Policy Number Policy Romero Covered Member ID Romero Member ID Guarantor Name 12/05/2024 1 [facility] (MEDICAID HMO) [id number] Kali Alfaro [id number] Kali Alfaro OBGyn Episode Ob Episode Information Episode Created Date Number of Fetuses Patient Bloodtype Patient rh Status Prepregnancy Weight lbs Domestic Partner Domestic Partner Phone Father Name Juvenile Corrections Officer Status 10/26/19 25 1 O Positive 215 Jasbir Herrera s OPEN Fetus Data First Name Last Name Admitted to NICU Weight (g) Sex Living Outcome Pediatric Complications Fetus ID Race Codes Race Delivery Type [id number] Gallito Calculation Initial Gallito Date Initial Exam [...] Weight in lbs Pre/Post Dialysis Refused Weight 203.310147515734 BP Diastolic BP Location Tested BP Systolic BP Type 72 L arm 107 sitting Fetus Heart Rate Present A 145 Fetus Movement A Yes Comments Patient presents to [facility] care. otherwise uncomplicated. No nausea or cramping. NT/NB wnl. Had UTI last week, finishing antibiotics today. No bleeding. RTC 4 weeks for routine care with anatomy US. Flowsheet Date 11/22/2024 Santos Score Blood Edema Fundus Height Fundus Units Glucose Ketones Leukocytes Nitrite Labor Signs Protein Cervic Dilation Cervic Effacement Cervic Station Type Weight in lbs Pre/Post Dialysis Refused Weight 203.344903259618 BP Diastolic BP Location Tested BP Systolic [...] Type Weight in lbs Pre/Post Dialysis Refused 204.823124022166 BP Diastolic BP Location Tested BP Systolic [...] Type Weight in lbs Pre/Post Dialysis Refused 206.472384938777 BP Diastolic BP Location Tested BP Systolic [...] Type Weight in lbs Pre/Post Dialysis Refused 204.731402390502 BP Diastolic BP Location Tested BP Systolic [...]
--- OUTSIDE RECORDS SUMMARY | 2025-02-06 14:36 | XMS_ITS | Continuity of Care Document ---
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 Plan of Treatment [...] US, obstetr ic, limited 2024 025 [email or web address] [place], [facility] [address], [place], [address], 02/05/2025 22:30:39 Medication Orders None recorde d. Patient TargetsNo targets recorded. Patient InstructionsNo instructions recorded. Reason for Referral None Reported. Results Created Date Observation Date Name Description Value Unit Range Abnormal Flag Note LastModifiedBy Organization Detail LastModifiedTime 10/26/19 25 10/25/2024 CULTU RE: URINE result report SEE RESULT S BELOW Test: Cultu re: Urine Speci men Sourc e: Urine Voide d Speci men Type: Urine Speci men Date: 025 1410 Resul t Date: 2024 0618 Resul t Statu s: Final resul t Abnor mal: No Resul ting Lab: [facility] [address] [facility] [address] Tel: CULTU RE ----- ----- ----- --- No growt h in 1 day (dete ction level of 10,00 0 colon ies / ml.) Not Available [facility] (Lab) [address] [facility], [place], [address], 10/27/2024 07:21:44 11/23/1911/22/2024 CULTU RE: URINE result report SEE RESULT S BELOW Test: Cultu re: Urine Speci men Sourc e: Urine Voide d Speci men Type: Urine Speci men Date: 1442 Resul t Date: 06 Resul t Statu s: Final resul t Abnor mal: No Resul ting Lab: [facility] [address] [facility] [address] Tel: CULTU RE ----- ----- ----- --- No growt h in 1 day (dete ction level of 10,00 0 colon ies / ml.) Not Available [facility] (Lab) [address] , [place], [address], 11/24/2024 07:08:30 11/23/1911/22/2024 urina lysis , dipst ick Leukocytes - Not Available [facility] [address], [place], [address], 11/22/2024 11:22:28 11/23/1911/22/2024 urina lysis , dipst ick Nitrite - Not Available [place] [address], [place], [address], 11/22/2024 11:22:28 11/23/1911/22/2024 urina lysis , dipst ick Urobilinogen - Not Available [facility] sushil [address], [place], [address], 11/22/2024 11:22:28 11/23/19 25 11/22/2024 urina lysis , dipst ick Protein trace Not Available [place] [address], [place], [address], 11/22/2024 11:22:28 11/23/19 25 11/22/2024 urina lysis , dipst ick pH 9 Not Available [place] [address], [place], [address], 11/22/2024 11:22:28 11/23/19 25 11/22/2024 urina lysis , dipst ick Specific [place] 1.000 Not Available [facility] [address], [place], [address], 11/22/2024 11:22:28 11/23/19 25 11/22/2024 urina lysis , dipst ick Ketone - Not Available [place] [address], [place], [address], 11/22/2024 11:22:28 11/23/19 25 11/22/2024 urina lysis , dipst ick Bilirubin - Not Available [facility] [address], [place], [address], 11/22/2024 11:22:28 11/23/19 25 11/22/2024 urina lysis , dipst ick Glucose - Not Available [place] [address], [place], [address], 11/22/2024 11:22:28 11/23/19 25 11/22/2024 urina lysis , dipst ick Appearance clear Not Available Gabino danielle [address], [place], [address], 11/22/2024 11:22:28 11/23/19 25 11/22/2024 urina lysis , dipst ick Color light yellow Not Available [address], [place], [address], 11/22/2024 11:22:28 01/16/2001/15/2025 HEMAT OCRIT (HCT) HCT 36.6 % (based on docume nted legal sex) 34.0-4 5.0 Not Available [facility] (Lab) [address] [facility], [place], [address], 01/16/2025 12:37:01 01/16/2001/15/2025 HEMOG LOBIN (HGB) HGB 12.1 g/dL (based on docume nted legal sex) 11.6-1 5.4 Not Available [facility] (Lab) [address] [facility], [place], [address], 01/16/2025 12:37:01 01/16/2001/15/2025 GTT - GESTA SYLVIA L YULIA Kirby, ACOG OB glucose, 1 hour screen 93 mg/dL 70-135 Not Available [facility] (Lab) [address] [facility], [place], [address], 01/16/2025 12:37:02 01/16/2001/15/2025 HIV 1/2 ANTIG EN/AN TIBOD Y, REFLE X CONFI RMATI ON HIV antigen/anti body Nonrea ctive nonrea ctive HIV-1 antig en and HIV-1 /HIV- 2 antib odies were not detec julissa. No labor atory evide nce of HIV infec tion. Not Available [facility] (Lab) [address] [facility], [place], [address], 01/16/2025 12:37:02 01/16/2001/15/2025 RPR SCREE N, REFLE X TITER /CONF IRMAT ION RPR qualitative Nonrea ctive nonrea ctive Not Available [facility] (Lab) [address] [place], [address], 01/16/2025 12:37:02 12/06/19 25 12/05/2024 US, obste tric, follo w-up No observ ation record ed. [email or web address] Laura [address], [place], [address], 12/05/2024 12:32:44 12/06/19 25 12/05/2024 US, obste tric, 2nd or 3rd trime ster No observ ation record ed. [email or web address] [place] [address], [place], [address], 12/05/2024 14:25:17 12/06/19 25 12/05/2024 US, obste tric, 2nd or 3rd trime ster No observ ation record ed. Laura [address], [place], [address], 12/24/2024 17:05:43 01/23/20 25 01/22/2025 US, obste tric, follo w-up No observ ation record ed. [email or web address] [place] [address], [place], [address], 01/22/2025 18:26:35 01/23/20 25 01/22/2025 US, obste tric, follo w-up No observ ation record ed. [email or web address] [place] [address], [place], [address], 01/23/2025 17:28:20 02/06/20 25 02/05/2025 US, obste tric, limit ed No observ ation record ed. [email or web address] [place] [address], [place], [address], 02/05/2025 18:03:16 02/06/20 25 02/05/2025 US, obste tric, limit ed No observ ation record ed. [email or web address] [place] [address], [place], [address], 02/05/2025 21:08:22 Result Notes None recorded. Problems Name Problem SNOMED Code Status Onset Date Resolution Date Notes Provider Name and Address Organization Details Recorded Time Nausea 151740216 Completed Priyank Salazar [facility] 3 15:53:32 44786300 Completed 201902/27/2020 Yara Tang [facility] 5 12:15:09 Chlamydial infection 333316285 Completed 2022 ARCHIE neg 11/28 [facility] 15:53:32 08521003 Completed 202201/02/2023 [facility] 5 12:15:09 14978159 Active 2024 [facility] 5 12:15:09 Problem Notes None recorded. Procedures Surgical History Date Name Laterality Status Provider Name and Address Organization Details Recorded Time 3 Date of Last Pap Smear completed Jojo Sidhu [facility] 06/07/2022 16:21:28 2 IUD Removal completed SATHYA Pineda- [address], [place], [address], [facility] 12/07/2021 15:13:12 0 IUD Insertion completed Anali Jesus CNM [address], [place], [address], [facility] 02/27/2020 12:14:04 0 Breast Surgery completed Jojo Sidhu [facility] 06/07/2022 16:22:43 Imaging Results None recorded. Procedure Notes None recorded. Medical Equipment None Reported. Allergies Allergen ID Allergen Name Allergen Category Reaction Reaction Severity Criticality Documentation Date Start Date Code Code System Note Provider Name and Address Organization Details Recorded Time 1604 amoxicill in medicatio n hives Not available Not available 10/25/2019 723 RxNorm Yara Tang [facility] 0 10:51:07 Medications Name Sig Start [...] Address Organization Details Last Updated DateTime 02/05/2025 91414.843 48 g 33.4 kg/m2 166.37 cm 105/71 mm[Hg] Soraya Palm [facility] 02/05/2025 15:30:07 Social History Question Answer Notes LastModified by Organizat ion Details LastModified Time Tobacco Smoking Status Former Smoker Rufinostorm Dunhamkristine [facility] 06/18/2021 10:11:12 Do You Have An Advance Directive? No [email or web address] Information not available 02/02/2021 If You Are , What Was Your Level Of Alcohol Consumption Prior To ? Occasional Information not available 06/07/2022 Are You Blind Or Do You Have Difficulty Seeing? No [email or web address] Information not available 11/20/2020 What Is Your Level Of Caffeine Consumption? Occasional [email or web address] Information not available 06/07/2022 In The 14 Days Before Symptom Onset, Have You Had Close Contact With A Laboratory-confir med COVID-19 While That Case Was Ill? No [email or web address] Information not available 02/02/2021 In The 14 Days Before Symptom Onset, Have You Had Close Contact With A Person Who Is Under Investigation For COVID-19 While That Person Was Ill? No [email or web address] Information not available 02/02/2021 Have You Been To An Area Known To Be High Risk For COVID-19? No [email or web address] Information not available 02/02/2021 Are You Deaf Or Do You Have Serious Difficulty Hearing? No [email or web address] Information not available 11/20/2020 What Type Of Diet Are You Following? REGULAR [email or web address] Information not available 11/20/2020 What Is The Highest Grade Or Level Of School You Have Completed Or The Highest Degree You Have Received? [id number] [email or web address] Information not available 02/02/2021 Are There Any Guns Present In Your Home? No [email or web address] Information not available 02/02/2021 What Was The Date Of Your Most Recent Tobacco Screening? 02/24/2023 [email or web address] Information not available 02/24/2023 Do You Use Your Seat Belt Or Car Seat Routinely? Yes [email or web address] Information not available 02/02/2021 Do You Have Smoke And Carbon Monoxide Detectors In Your Home? Yes [email or web address] Information not available 02/02/2021 How Much Tobacco Do You Smoke? No [email or web address] Information not available 11/22/2019 Do You Use Sunscreen Routinely? No Information not available 02/02/2021 Have You Used IV Drugs? No [email or web address] Information not available 02/02/2021 Do You Have Difficulty Walking Or Climbing Stairs? No [email or web address] Information not available 06/18/2021 Sex: Unknown Functional Status Question Answer Note LastModified by Organizat ion Details LastModified Time Do you use any illicit or recreational drugs? No [email or web address] Information not available 02/02/2021 What is your level of alcohol consumption? None [email or web address] Information not available 06/07/2022 Do you or have you ever used smokeless tobacco? Never used smokeless tobacco [email or web address] Information not available 06/18/2021 Are you able to walk independently without assistance or assistive devices? YESWOREST [email or web address] Information not available 11/20/2020 Are you able to care for yourself independently? 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 No [email or web address] Information not available 06/18/2021 Do you or have you ever used e-cigarettes or vape? Former user of electronic cigarettes [email or web address] Information not available 06/18/2021 What is your exercise level? Occasional [email or web address] Information not available 11/22/2019 Mental Status Question Answer Note LastModified by Organization D etails LastModified Time Do you feel stressed (tense, restless, nervous, or anxious, or unable to sleep at night)? [id number] [email or web address] Information not available 02/02/2021 Family History Nothing Reported. Medical History Condition Response Allergies (Food, seasonal, environmental ) N Other N Drug/Latex Allergies/Reactions N Breast Cancer N Blood Transfusion N Dermatologic Disorders N [...] Neurologic/Epilepsy N Endometriosis N High Cholesterol N Fibromyalgia N Headaches N Kidney Disease N Heart Problems N [...] ICD10 Code Diagnosis IMO Codes Diagnosis Note [id number] [facility] [address],[place] [address] 01/15/2025 14:14:05 01/15/2025 14:55:03 Gestation period, 27 weeks 83705275 Z3A.27 7780484 cont pnv [id number] Huy Pratt MD [place] [address],[place] [address] 01/22/2025 13:36:37 01/22/2025 14:21:06 Excessive growth affecting management of mother 93642232 O36.63X0 Z3A.28 [id number] [facility] [address],[place] [address] 01/22/2025 13:36:49 01/22/2025 14:24:26 Gestation period, 28 weeks 10603367 Z3A.28 0832998 cont pnv [id number] Huy Pratt MD [place] [address],[place] [address] 02/05/2025 14:34:54 02/05/2025 15:28:08 Polyhydramnios 67933548 O40.3XX0 Z3A.30 55162451 [id number] JULIA TAN MD [place] [address],[place] [address] 02/05/2025 14:35:23 02/05/2025 15:43:53 Large for gestation age fetus 187907890 O36.60X0 06232753 - EFW 91% at 28 weeks, repeat at 32 weeks- FABIENNE wnl at 30 weeks- passed GCT Gestation period, 30 weeks 44844241 Z3A.30 3884469 - continue [facility] Health Concerns Section Related Observation LastModified by Organization Detai ls LastModified Time None Recorded Concern Status LastModified by Organization Details LastModified Time None Recorded Payers Encounter Date Sequence Insurance Name Policy Number Policy Romero Covered Member ID Romero Member ID Guarantor Name 02/05/2025 1 [facility]LY [facility] (MEDICAID HMO) [id number] Kali Alfaro [id number] Kali Alfaro Notes Date Note Type Note Provider Name and Address Organization Details Recorded Time 02/05/2025 text/html Generic HPI TemplateReported by Patient JULIA TAN MD [address], [place], [address], [facility] 02/05/2025 15:42:08 OBGyn Episode Ob Episode Information Episode Created Date Number of Fetuses Patient Bloodtype Patient rh Status Prepregnancy Weight lbs Domestic Partner Domestic Partner Phone Father Name [employer] Status 10/26/19 25 1 O Positive 215 Jasbir Herrera s OPEN Fetus Data First Name Last Name Admitted to NICU Weight (g) Sex Living Outcome Pediatric Complications Fetus ID Race Codes Race Delivery Type [id number] Gallito Calculation Initial Gallito Date Initial Exam [...] Weight in lbs Pre/Post Dialysis Refused Weight 203.112970396923 BP Diastolic BP Location Tested BP Systolic BP Type 72 L arm 107 sitting Fetus Heart Rate Present A 145 Fetus Movement A Yes Comments Patient presents to [facility] care. otherwise uncomplicated. No nausea or cramping. NT/NB wnl. Had UTI last week, finishing antibiotics today. No bleeding. RTC 4 weeks for routine care with anatomy US. Flowsheet Date 11/22/2024 Santos Score Blood Edema Fundus Height Fundus Units Glucose Ketones Leukocytes Nitrite Labor Signs Protein Cervic Dilation Cervic Effacement Cervic Station Type Weight in lbs Pre/Post Dialysis Refused Weight 203.115864574859 BP Diastolic BP Location Tested BP Systolic [...] Type Weight in lbs Pre/Post Dialysis Refused 204.809333884256 BP Diastolic BP Location Tested BP Systolic [...] Type Weight in lbs Pre/Post Dialysis Refused 206.441150386337 BP Diastolic BP Location Tested BP Systolic [...] Type Weight in lbs Pre/Post Dialysis Refused 204.083864001957 BP Diastolic BP Location Tested BP Systolic [...]
--- OUTSIDE RECORDS SUMMARY | 2025-02-06 14:36 | XMS_ITS | Continuity of Care Document ---
Author Organization [facility] Address [address] [place] [address] [place] [address] Care Team Providers Care Family Services Manager Name Role Phone AMILCAR FRENCH Primary Care [...] None recorde d. Imaging US, obstetr ic, follow- up 2024 025 [email or web address] [place] [facility] [address], [place], [address], 01/22/2025 18:32:28 Medication Orders None recorde d. [...] Lab: [facility] [address] [facility] [address] Tel: CULTU RE ----- ----- ----- --- No growt h in 1 day (dete ction level of 10,00 0 colon ies / ml.) Not Available [facility] (Lab) [address] [facility], [place], [address], 10/27/2024 07:21:44 11/23/1911/22/2024 CULTU RE: URINE result report SEE RESULT S BELOW Test: Cultu re: Urine Speci men Sourc e: Urine Voide d Speci men Type: Urine Speci men Date: 144 Resul t Date: 604 Resul t Statu s: Final resul t Abnor mal: No Resul ting Lab: [facility] [address] [facility] [address] Tel: CULTU RE ----- ----- ----- --- No growt h in 1 day (dete ction level of 10,00 0 colon ies / ml.) Not Available [facility] (Lab) [address], [place], [address], 11/24/2024 07:08:30 11/23/1911/22/2024 urina lysis , dipst ick Leukocytes - Not Available [facility] [address], [place], [address], 11/22/2024 11:22:28 11/23/1911/22/2024 urina lysis , dipst ick Nitrite - Not Available [place] [address], [place], [address], 11/22/2024 11:22:28 11/23/1911/22/2024 urina lysis , dipst ick Urobilinogen - Not Available Moises ling [address], [place], [address], 11/22/2024 11:22:28 11/23/19 25 11/22/2024 urina lysis , dipst ick Protein trace Not Available [place] [address], [place], [address], 11/22/2024 11:22:28 11/23/19 25 11/22/2024 urina lysis , dipst ick pH 9 Not Available [place] [address], [place], [address], 11/22/2024 11:22:28 11/23/19 25 11/22/2024 urina lysis , dipst ick Specific [place] 1.000 Not Available [facility] [address], [place], [address], 11/22/2024 11:22:28 11/23/19 25 11/22/2024 urina lysis , dipst ick Ketone - Not Available [place] [address], [place], [address], 11/22/2024 11:22:28 11/23/19 25 11/22/2024 urina lysis , dipst ick Bilirubin - Not Available Isidro estrada [address], [place], [address], 11/22/2024 11:22:28 11/23/19 25 11/22/2024 urina lysis , dipst ick Glucose - Not Available [place] [address], [place], [address], 11/22/2024 11:22:28 11/23/19 25 11/22/2024 urina lysis , dipst ick Appearance clear Not Available Gabino danielle [address], [place], [address], 11/22/2024 11:22:28 11/23/19 25 11/22/2024 urina lysis , dipst ick Color light yellow Not Available [address], [place], [address], 11/22/2024 11:22:28 01/16/2001/15/2025 HEMAT OCRIT (HCT) HCT 36.6 % (based on docume nted legal sex) 34.0-4 5.0 Not Available [facility] (Lab) [address] [facility], [place], [address], 01/16/2025 12:37:01 01/16/2001/15/2025 HEMOG LOBIN (HGB) HGB 12.1 g/dL (based on docume nted legal sex) 11.6-1 5.4 Not Available [facility] (Lab) [address] [facility], [place], [address], 01/16/2025 12:37:01 01/16/2001/15/2025 GTT - GESTA SYLVIA L YULIA Kirby, ACOG OB glucose, 1 hour screen 93 mg/dL 70-135 Not Available [facility] (Lab) [address] [facility], [place], [address], 01/16/2025 12:37:02 01/16/2001/15/2025 HIV 1/2 ANTIG EN/AN TIBOD Y, REFLE X CONFI RMATI ON HIV antigen/anti body Nonrea ctive nonrea ctive HIV-1 antig en and HIV-1 /HIV- 2 antib odies were not detec julissa. No labor atory evide nce of HIV infec tion. Not Available [facility] (Lab) [address] [facility], [place], [address], 01/16/2025 12:37:02 01/16/2001/15/2025 RPR SCREE N, REFLE X TITER /CONF IRMAT ION RPR qualitative Nonrea ctive nonrea ctive Not Available [facility] (Lab) [address] [place], [address], 01/16/2025 12:37:02 12/06/19 25 12/05/2024 US, obste tric, follo w-up No observ ation record ed. [email or web address] [place] [address], [place], [address], 12/05/2024 12:32:44 12/06/19 25 12/05/2024 US, obste tric, 2nd or 3rd trime ster No observ ation record ed. [email or web address] [place] [address], [place], [address], 12/05/2024 14:25:17 12/06/19 25 12/05/2024 US, obste tric, 2nd or 3rd trime ster No observ ation record ed. [email or web address] [place] [address], [place], [address], 12/24/2024 17:05:43 01/23/20 25 01/22/2025 US, obste tric, follo w-up No observ ation record ed. [email or web address] [place] [address], [place], [address], 01/22/2025 18:26:35 01/23/20 25 01/22/2025 US, obste tric, follo w-up No observ ation record ed. [email or web address] [place] [address], [place], [address], 01/23/2025 17:28:20 02/06/20 25 02/05/2025 US, obste tric, limit ed No observ ation [facility] [address], [place], [address], 02/05/2025 18:03:16 02/06/20 25 02/05/2025 US, obste tric, limit ed No observ ation record ed. [email or web address] [place] [address], [place], [address], 02/05/2025 21:08:22 Result Notes None recorded. Problems Name Problem SNOMED Code Status Onset Date Resolution Date Notes Provider Name and Address Organization Details Recorded Time Nausea 883885732 Completed Priyank Salazar [facility] 3 15:53:32 [id number] Completed 201902/27/[address] [facility] 5 12:15:09 Chlamydial infection [id number] Completed 2022 ARCHIE neg 11/[facility] 15:53:32 [id number] Completed 202201/02/[address] [facility] 5 12:15:[id number] Active [address] [facility] 5 12:15:09 Problem Notes None recorded. Procedures Surgical History Date Name Laterality Status Provider Name and Address Organization Details Recorded Time 3 Date of Last Pap Smear completed Jojo Sidhu [facility] 06/07/2022 16:21:28 2 IUD Removal completed SATHYA Pineda- [address], [place], [address], [facility] 12/07/2021 15:13:12 0 IUD Insertion completed Anali Jesus CNM [address], [place], [address], [facility] 02/27/2020 12:14:04 0 Breast Surgery completed Jojo Sidhu [facility] 06/07/2022 16:22:43 Imaging Results None recorded. Procedure Notes None recorded. Medical Equipment None Reported. Allergies Allergen ID Allergen Name Allergen Category Reaction Reaction Severity Criticality Documentation Date Start Date Code Code System Note Provider Name and Address Organization Details Recorded Time 1604 amoxicill in medicatio n hives Not available Not available 10/25/2019 723 RxNorm Yara Tang [facility] 0 10:51:07 Medications Name Sig Start [...] Address Organization Details Last Updated DateTime 01/22/2025 81225.59129 g 112/76 mm[Hg] Carina Levy [place] - [facility] 01/22/2025 14:14:21 Social History Question Answer Notes LastModified by Organizat ion Details LastModified Time Tobacco Smoking Status Former Smoker Maverick Valles [facility] 06/18/2021 10:11:12 Do You Have An Advance Directive? No [email or web address] Information not available 02/02/2021 If You Are , What Was Your Level Of Alcohol Consumption Prior To ? Occasional [email or web address] Information not available 06/07/2022 Are You Blind Or Do You Have Difficulty Seeing? No [email or web address] Information not available 11/20/2020 What Is Your Level Of Caffeine Consumption? Occasional [email or web address] Information not available 06/07/2022 In The 14 Days Before Symptom Onset, Have You Had Close Contact With A Laboratory-confir med COVID-19 While That Case Was Ill? No Information not available 02/02/2021 In The 14 Days Before Symptom Onset, Have You Had Close Contact With A Person Who Is Under Investigation For COVID-19 While That Person Was Ill? No [email or web address] Information not available 02/02/2021 Have You Been To An Area Known To Be High Risk For COVID-19? No Information not available 02/02/2021 Are You Deaf Or Do You Have Serious Difficulty Hearing? No [email or web address] Information not available 11/20/2020 What Type Of Diet Are You Following? REGULAR [email or web address] Information not available 11/20/2020 What Is The Highest Grade Or Level Of School You Have Completed Or The Highest Degree You Have Received? SC87730-9 [email or web address] Information not available 02/02/2021 Are There Any Guns Present In Your Home? No [email or web address] Information not available 02/02/2021 What Was The Date Of Your Most Recent Tobacco Screening? 02/24/2023 [email or web address] Information not available 02/24/2023 Do You Use Your Seat Belt Or Car Seat Routinely? Yes [email or web address] Information not available 02/02/2021 Do You Have Smoke And Carbon Monoxide Detectors In Your Home? Yes [email or web address] Information not available 02/02/2021 How Much Tobacco Do You Smoke? No Information not available 11/22/2019 Do You Use Sunscreen Routinely? No Information not available 02/02/2021 Have You Used IV Drugs? No [email or web address] Information not available 02/02/2021 Do You Have Difficulty Walking Or Climbing Stairs? No [email or web address] Information not available 06/18/2021 Sex: Unknown Functional Status Question Answer Note LastModified by Organizat ion Details LastModified Time Do you use any illicit or recreational drugs? No [email or web address] Information not available 02/02/2021 What is your level of alcohol consumption? None [email or web address] Information not available 06/07/2022 Do you or have you ever used smokeless tobacco? Never used smokeless tobacco Information not available 06/18/2021 Are you able to walk independently without assistance or assistive devices? [email or web address] Information not available 11/20/2020 Are you able to care for yourself independently? 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 No [email or web address] Information not available 06/18/2021 Do you or have you ever used e-cigarettes or vape? Former user of electronic cigarettes [email or web address] Information not available 06/18/2021 What is your exercise level? Occasional [email or web address] Information not available 11/22/2019 Mental Status Question Answer Note LastModified by Organization D etails LastModified Time Do you feel stressed (tense, restless, nervous, or anxious, or unable to sleep at night)? [id number] [email or web address] Information not available 02/02/2021 Family History Nothing [...] ICD10 Code Diagnosis IMO Codes Diagnosis Note [id number] [facility] [address] [address] 01/15/2025 14:14:05 01/15/2025 14:55:03 Gestation period, 27 weeks [id number] Z3A.27 [id number] cont pnv [id number] Huy Pratt MD [place] [address],[place] [address] 01/22/2025 13:36:37 01/22/2025 14:21:06 Excessive growth affecting management of mother [id number] O36.63X0 Z3A.28 [id number] [facility] [address],[place] [address] 01/22/2025 13:36:49 01/22/2025 14:24:26 Gestation period, 28 weeks [id number] Z3A.28 [id number] cont pnv Health Concerns Section Related Observation LastModified by Organization Detai ls LastModified Time None Recorded Concern Status LastModified by Organization Details LastModified Time None Recorded Payers Encounter Date Sequence Insurance Name Policy Number Policy Romero Covered Member ID Romero Member ID Guarantor Name 01/22/2025 1 [facility] (MEDICAID HMO) [id number] Kali Alfaro [id number] Kali Alfaro Notes Date Note Type Note Provider Name and Address Organization Details Recorded Time 01/22/2025 text/html Generic HPI TemplateReported by Patient Anali Jesus CNM [address], [place], [address], [place] [facility] 01/22/2025 14:22:54 OBGyn Episode Ob Episode Information Episode Created Date Number of Fetuses Patient Bloodtype Patient rh Status Prepregnancy Weight lbs Domestic Partner Domestic Partner Phone Father Name Coffee Grower Status 10/26/19 25 1 O Positive 215 Jasbir Herrera s OPEN Fetus Data First Name Last Name Admitted to NICU Weight (g) Sex Living Outcome Pediatric Complications Fetus ID Race Codes Race Delivery Type 32512 Gallito Calculation Initial Gallito Date Initial Exam [...] Weight in lbs Pre/Post Dialysis Refused Weight 203.649788522879 BP Diastolic BP Location Tested BP Systolic BP Type 72 L arm 107 sitting Fetus Heart Rate Present A 145 Fetus Movement A Yes Comments Patient presents to [facility] care. otherwise uncomplicated. No nausea or cramping. NT/NB wnl. Had UTI last week, finishing antibiotics today. No bleeding. RTC 4 weeks for routine care with anatomy US. Flowsheet Date 11/22/2024 Santos Score Blood Edema Fundus Height Fundus Units Glucose Ketones Leukocytes Nitrite Labor Signs Protein Cervic Dilation Cervic Effacement Cervic Station Type Weight in lbs Pre/Post Dialysis Refused Weight 203.745909187409 BP Diastolic BP Location Tested BP Systolic [...] Type Weight in lbs Pre/Post Dialysis Refused 204.698890548128 BP Diastolic BP Location Tested BP Systolic [...] Type Weight in lbs Pre/Post Dialysis Refused 206.076799679035 BP Diastolic BP Location Tested BP Systolic [...] Type Weight in lbs Pre/Post Dialysis Refused 204.882967711248 BP Diastolic BP Location Tested BP Systolic [...]
--- OUTSIDE RECORDS SUMMARY | 2025-02-06 14:36 | XMS_ITS | Continuity of Care Document ---
Author Organization [facility] Address [address] [place] [address] [place] [address] Care Team Providers Care Dope Worker Name Role Phone AMILCAR FRENCH Primary Care Provider Assessment Encounter Date Assessment Date Assessment LastModified by Organization Details LastModified Time 01/15/2025 01/15/2025 Patient is _27__weeks . Discussed plan. Not available 01/15/2025 14:38:54 Plan of Treatment Reminders Order Date Submit Date Provider Last Modified By Organization Details Last Modified Time Details Appointments U/S OB GROWTH 2024 02:00P M ULTRASOUND Not available Not available Not available OB ROUTINE 2024 02:30P M Mima HANSEN MD Not available Not available Not available Lab drug screen, urine 2024 025 [facility], [address], [address], [place], [address], 01/16/2025 08:34:41 Referral None recorde d. Procedures [...] Speci men Type: Urine Speci men Date: 8/8/2 025 1410 Resul t Date: 2024 0618 Resul t Statu s: Final resul t Abnor mal: No Resul ting Lab: [facility] [address] [facility] [address] Tel: CULTU RE ----- ----- ----- --- No growt h in 1 day (dete ction level of 10,00 0 colon ies / ml.) Not Available [facility] (Lab) [address] [facility] [address] [facility], [place], [address], 10/27/2024 07:21:44 11/23/1911/22/2024 CULTU RE: URINE result report SEE RESULT S BELOW Test: Cultu re: Urine Speci men Sourc e: Urine Voide d Speci men Type: Urine Speci men Date: 025 1442 Resul t Date: 025 0605 Resul t Statu s: Final resul t Abnor mal: No Resul ting Lab: [facility] [address] [facility] [address] Tel: CULTU RE ----- ----- ----- --- No growt h in 1 day (dete ction level of 10,00 0 colon ies / ml.) Not Available [facility] (Lab) [address] , [place], [address], 11/24/2024 07:08:30 11/23/1911/22/2024 urina lysis , dipst ick Leukocytes - Not Available [facility] [address], [place], [address], 11/22/2024 11:22:28 11/23/1911/22/2024 urina lysis , dipst ick Nitrite - Not Available [facility] [address], [place], [address], 11/22/2024 11:22:28 11/23/1911/22/2024 urina lysis , dipst ick Urobilinogen - Not Available [facility] sushil [address], [place], [address], 11/22/2024 11:22:28 11/23/19 25 11/22/2024 urina lysis , dipst ick Protein trace Not Available [facility] [address], [place], [address], 11/22/2024 11:22:28 11/23/19 25 11/22/2024 urina lysis , dipst ick pH 9 Not Available [facility] [address], [place], [address], 11/22/2024 11:22:28 11/23/19 25 11/22/2024 urina lysis , dipst ick Specific [place] 1.000 Not Available [facility] [address], [place], [address], 11/22/2024 11:22:28 11/23/19 25 11/22/2024 urina lysis , dipst ick Ketone - Not Available [facility] [address], [place], [address], 11/22/2024 11:22:28 11/23/19 25 11/22/2024 urina lysis , dipst ick Bilirubin - Not Available Isidro estrada [address], [place], [address], 11/22/2024 11:22:28 11/23/19 25 11/22/2024 urina lysis , dipst ick Glucose - Not Available [facility] [address], [place], [address], 11/22/2024 11:22:28 11/23/19 25 11/22/2024 urina lysis , dipst ick Appearance clear Not Available Gabino danielle [address], [place], [address], 11/22/2024 11:22:28 11/23/19 25 11/22/2024 urina lysis , dipst ick Color light yellow Not Available [facility] [address], [place], [address], 11/22/2024 11:22:28 01/16/2001/15/2025 HEMAT OCRIT (HCT) HCT 36.6 % (based on docume nted legal sex) 34.0-4 5.0 Not Available [facility] (Lab) [address] [facility], [place], [address], 01/16/2025 12:37:01 01/16/20 25 01/15/2025 HEMOG LOBIN (HGB) HGB 12.1 g/dL (based on docume nted legal sex) 11.6-1 5.4 Not Available [facility] (Lab) [address] [facility], [place], [address], 01/16/2025 12:37:01 01/16/20 25 01/15/2025 GTT - GESTA SYLVIA L YULIA Kirby, ACOG OB glucose, 1 hour screen 93 mg/dL 70-135 Not Available [facility] (Lab) [address] [place], [address], 01/16/2025 12:37:02 01/16/2001/15/2025 HIV 1/2 ANTIG EN/AN TIBOD Y, REFLE X CONFI RMATI ON HIV antigen/anti body Nonrea ctive nonrea ctive HIV-1 antig en and HIV-1 /HIV- 2 antib odies were not detec julissa. No labor atory evide nce of HIV infec tion. Not Available [facility] (Lab) [address] [facility] [address] [facility], [place], [address], 01/16/2025 12:37:02 01/16/20 25 01/15/2025 RPR SCREE N, REFLE X TITER /CONF IRMAT ION RPR qualitative Nonrea ctive nonrea ctive Not Available [facility] (Lab) [address], [place], [address], 01/16/2025 12:37:02 12/06/19 25 12/05/2024 US, obste tric, follo w-up No observ ation record ed. [email or web address] Laura [address], [place], [address], 12/05/2024 12:32:44 12/06/19 25 12/05/2024 US, obste tric, 2nd or 3rd trime ster No observ ation record ed. [email or web address] [facility] [address], [place], [address], 12/05/2024 14:25:17 12/06/19 25 12/05/2024 US, obste tric, 2nd or 3rd trime ster No observ ation record ed. [email or web address] [address], [place], [address], 12/24/2024 17:05:43 01/23/20 25 01/22/2025 US, obste tric, follo w-up No observ ation record ed. [email or web address] [facility] [address], [place], [address], 01/22/2025 18:26:35 01/23/20 25 01/22/2025 US, obste tric, follo w-up No observ ation record ed. [email or web address] Laura [address], [place], [address], 01/23/2025 17:28:20 02/06/20 25 02/05/2025 US, obste tric, limit ed No observ ation record ed. [email or web address] [facility] [address], [place], [address], 02/05/2025 18:03:16 02/06/20 25 02/05/2025 US, obste tric, limit ed No observ ation record ed. [email or web address] Laura [address], [place], [address], 02/05/2025 21:08:22 Result Notes None recorded. Problems Name Problem SNOMED Code Status Onset Date Resolution Date Notes Provider Name and Address Organization Details Recorded Time Nausea [id number] Completed [facility] 3 15:53:32 [id number] Completed 201902/27/2020 Yara Anne [facility] 5 12:15:09 Chlamydial infection [id number] Completed 2022 ARCHIE neg 11/28 [facility] 3 15:53:32 [id number] Completed 202201/02/2023 Yara Tang [facility] 5 12:15:09 [id number] Active 2024 Yara Anne [facility] 5 12:15:09 Problem Notes None recorded. Procedures Surgical History Date Name Laterality Status Provider Name and Address Organization Details Recorded Time 3 Date of Last Pap Smear completed Jojo Sidhu [facility] 06/07/2022 16:21:28 2 IUD Removal completed Erica Benz KATHIE- [address], [place], [address], [facility] 12/07/2021 15:13:12 0 IUD Insertion completed Anali Jesus CNM [address], [place], [address], [facility] 02/27/2020 12:14:04 0 Breast Surgery completed Jojo Sidhu [facility] 06/07/2022 16:22:43 Imaging Results None recorded. Procedure Notes None recorded. Medical Equipment None Reported. Allergies Allergen ID Allergen Name Allergen Category Reaction Reaction Severity Criticality Documentation Date Start Date Code Code System Note Provider Name and Address Organization Details Recorded Time 1604 amoxicill in medicatio n hives Not available Not available 10/25/2019 723 RxNorm Yara Tang digna, [facility] 0 10:51:07 Medications Name Sig [...] Address Organization Details Last Updated DateTime 01/15/2025 45997.66453 g 123/79 mm[Hg] Carina Cam [facility] 01/15/2025 14:25:16 Social History Question Answer Notes LastModified by Organizat ion Details LastModified Time Tobacco Smoking Status Former Smoker Maverick Valles digna, [facility] 06/18/2021 10:11:12 Do You Have An Advance Directive? No [email or web address] Information not available 02/02/2021 If You Are , What Was Your Level Of Alcohol Consumption Prior To ? Occasional Information not available 06/07/2022 Are You Blind Or Do You Have Difficulty Seeing? No [email or web address] Information not available 11/20/2020 What Is Your Level Of Caffeine Consumption? Occasional [email or web address] Information not available 06/07/2022 In The 14 Days Before Symptom Onset, Have You Had Close Contact With A Laboratory-confir med COVID-19 While That Case Was Ill? No [email or web address] Information not available 02/02/2021 In The 14 Days Before Symptom Onset, Have You Had Close Contact With A Person Who Is Under Investigation For COVID-19 While That Person Was Ill? No [email or web address] Information not available 02/02/2021 Have You Been To An Area Known To Be High Risk For COVID-19? No [email or web address] Information not available 02/02/2021 Are You Deaf Or Do You Have Serious Difficulty Hearing? No [email or web address] Information not available 11/20/2020 What Type Of Diet Are You Following? REGULAR [email or web address] Information not available 11/20/2020 What Is The Highest Grade Or Level Of School You Have Completed Or The Highest Degree You Have Received? [id number] Information not available 02/02/2021 Are There Any Guns Present In Your Home? No [email or web address] Information not available 02/02/2021 What Was The Date Of Your Most Recent Tobacco Screening? 02/24/2023 [email or web address] Information not available 02/24/2023 Do You Use Your Seat Belt Or Car Seat Routinely? Yes Information not available 02/02/2021 Do You Have Smoke And Carbon Monoxide Detectors In Your Home? Yes [email or web address] Information not available 02/02/2021 How Much Tobacco Do You Smoke? No [email or web address] Information not available 11/22/2019 Do You Use Sunscreen Routinely? No [email or web address] Information not available 02/02/2021 Have You Used IV Drugs? No [email or web address] Information not available 02/02/2021 Do You Have Difficulty Walking Or Climbing Stairs? No [email or web address] Information not available 06/18/2021 Sex: Unknown Functional Status Question Answer Note LastModified by Organizat ion Details LastModified Time Do you use any illicit or recreational drugs? No [email or web address] Information not available 02/02/2021 What is your level of alcohol consumption? None [email or web address] Information not available 06/07/2022 Do you or have you ever used smokeless tobacco? Never used smokeless tobacco Information not available 06/18/2021 Are you able to walk independently without assistance or assistive devices? YESWOREST [email or web address] Information not available 11/20/2020 Are you able to care for yourself independently? 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 No [email or web address] Information not available 06/18/2021 Do you or have you ever used e-cigarettes or vape? Former user of electronic cigarettes [email or web address] Information not available 06/18/2021 What is your exercise level? Occasional [email or web address] Information not available 11/22/2019 Mental Status Question Answer Note LastModified by Organization D etails LastModified Time Do you feel stressed (tense, restless, nervous, or anxious, or unable to sleep at night)? [id number] Information not available 02/02/2021 Family History Nothing [...] ICD10 Code Diagnosis IMO Codes Diagnosis Note [id number] Anali Jesus, [facility] [address] [address] 01/15/2025 14:14:05 01/15/2025 14:55:03 Gestation period, 27 weeks [id number] cont pnv Health Concerns Section Related Observation LastModified by Organization Detai ls LastModified Time None Recorded Concern Status LastModified by Organization Details LastModified Time None Recorded Payers Encounter Date Sequence Insurance Name Policy Number Policy Romero Covered Member ID Romero Member ID Guarantor Name 01/15/2025 1 [facility] (MEDICAID HMO) [id number] Kali Alfaro [id number] Kali Alfaro Notes Date Note Type Note Provider Name and Address Organization Details Recorded Time 01/15/2025 text/html Generic HPI TemplateReported by Patient Carina Levy digna [facility] 01/15/2025 18:08:13 OBGyn Episode Ob Episode Information Episode Created Date Number of Fetuses Patient Bloodtype Patient rh Status Prepregnancy Weight lbs Domestic Partner Domestic Partner Phone Father Name Food Safety Technician Status 10/26/19 25 1 O Positive 215 Jasbir sandoval OPEN Fetus Data First Name Last Name Admitted to NICU Weight (g) Sex Living Outcome Pediatric Complications Fetus ID Race Codes Race Delivery Type [id number] Gallito Calculation Initial Gallito Date Initial Exam [...] Weight in lbs Pre/Post Dialysis Refused Weight 203.468787669281 BP Diastolic BP Location Tested BP Systolic BP Type 72 L arm 107 sitting Fetus Heart Rate Present A 145 Fetus Movement A Yes Comments Patient presents to [facility] care. otherwise uncomplicated. No nausea or cramping. NT/NB wnl. Had UTI last week, finishing antibiotics today. No bleeding. RTC 4 weeks for routine care with anatomy US. Flowsheet Date 11/22/2024 Santos Score Blood Edema Fundus Height Fundus Units Glucose Ketones Leukocytes Nitrite Labor Signs Protein Cervic Dilation Cervic Effacement Cervic Station Type Weight in lbs Pre/Post Dialysis Refused Weight 203.035119806169 BP Diastolic BP Location Tested BP Systolic [...] Type Weight in lbs Pre/Post Dialysis Refused 204.602734474391 BP Diastolic BP Location Tested BP Systolic [...] Type Weight in lbs Pre/Post Dialysis Refused 206.410096460391 BP Diastolic BP Location Tested BP Systolic [...] Type Weight in lbs Pre/Post Dialysis Refused 204.186053722830 BP Diastolic BP Location Tested BP Systolic [...]
[2025-02-06] MEDS: ACETAMINOPHEN 500 MG TABLET 1000 MG PO (15:13)
[2025-02-06 15:17] LABS: Add Urine Microscopic? YES; Appearance Urine Clear (Clear); Glucose Urine UA Negative (Negative); Leukocyte Esterase Ur 2+ LEU/UL (Negative); Nitrate Urine Negative (Negative); Non Pathogenic Casts 0-2; Specific Grav Ur 1.004 (1.001-1.035)
[2025-02-06] MEDS: ONDANSETRON INJ 4 MG/2 ML VIAL IV PUSH (15:51)
[2025-02-06] MEDS: MORPHINE SULFATE (*CRX) 4 MG/ML INJ IV PUSH (15:53)
[2025-02-06] MEDS: cefTRIAXone 1 GM in SODIUM CHLORIDE 0.9% IV 50 ML 100 ML IVPB (15:54)
== END 2025-02-06 16:18 | disposition home or self-care (01) ==
PROVIDERS: Emergency Provider Emergency Medicine; PCP Physician Assistant
DX: O23.43 Unspecified infection of urinary tract in pregnancy, third trimester (principal); N39.0 Urinary tract infection, site not specified; Z3A.30 30 weeks gestation of pregnancy; O99.343 Other mental disorders complicating pregnancy, third trimester
CPT/HCPCS: 36415; 80053; 81001; 85025; 85610; 85730; 96365; 96375; 99284; A9270; J0696; J2270; J2405

== ENCOUNTER 2025-03-06 20:48 | Observation (INO) | payer OTHER, SELFPAY ==
[2025-03-06] VITALS (7 sets, daily range): BP systolic 122; BP diastolic 78–81; PULSE 91–104; RESP 16; TEMP 36.4; O2SAT 92–96
--- NOTE | 2025-03-06 21:09 | OBADM ---
This patient, Kali Alfaro, admitted to the OB room Labor/Delivery/Recovery 105 for observation. Patient/family oriented to hospital policies and general routines including ID bracelet, bed and alarms, visiting hours, pain management, procedures, bathroom and other care routines, personal items, smoking policy, room service/diet, and visiting hours. Patient/Family are encouraged to report perceived risks to care and to ask questions if they do not understand what they are told or what they should do.
--- NOTE | 2025-03-06 21:16 | PC.NURSE ---
2047- Pt is a with a due date of 04/12/2025 who arrives to unit with complaints of LOF since 1945 this evening. Pt states she was at work when she felt a gush of fluid and states she feels that she is telma every 20-30 minutes. Pt denies any complications this but states that she was asked to take her blood pressures at home due to elevated pressures in office. Pt denies any vaginal bleeding and states she has good movement. Abdomen is soft to palpation. 2099- ROM+ performed at this time 2119- ROM+ confirmed negative 2123- RN called Dr. Pratt and notified him of pts arrival to unit, results of ROM+, reactive tracing and one contraction seen. Discharge orders received.
--- NOTE | 2025-03-30 21:51 | PM.OBTRLD ---
OB - Triage/Final Diagnosis Visit Information Comments/Additional reasons for admission: I have assessed the risk for this patient, Kali Alfaro, and determined that she would benefit from observation care. Final Diagnosis (1) Amniotic fluid leaking: Code(s): O42.90 - Premature rupture of membranes, unspecified as to length of time between rupture and onset of labor, unspecified weeks of gestation Status: Acute
== END 2025-03-06 21:38 | disposition home or self-care (01) ==
PROVIDERS: Admitting Provider Obstetrics & Gynecology; PCP Physician Assistant; Visit Provider Obstetrics & Gynecology
DX: O42.913 Preterm premature rupture of membranes, unspecified as to length of time between rupture and onset of labor, third trimester (principal); Z3A.34 34 weeks gestation of pregnancy
CPT/HCPCS: 59025; G0378; G0379